=== PATIENT | female | born 1955 | race Caucasian/White ===

== ENCOUNTER 2023-06-20 10:21 | Inpatient (IN) | payer MEDICARE, OTHER, SELFPAY ==
[2023-06-20] VITALS (15 sets, daily range): BP systolic 108–160; BP diastolic 55–83; PULSE 78; BMI 44.5
[2023-06-20 06:19] LABS: % Basophils 0.5 % (0-2); % Eosinophils 0.4 % (0-6); % Immature Granulocytes 0.4 % (0-0.5); % Lymphocytes 5.5 % (20.5-51.1); % Monocytes 5.7 % (1.7-9.3); % Neutrophils 87.5 % (42.2-75.2); Absolute Basophils 0.1 10^3/uL (0-0.2); Absolute Eosinophils 0.1 10^3/uL (0-0.7); Absolute Immature Granulocytes 0.1 10^3/uL (0-0.05); Absolute Lymphocytes 0.9 10^3/uL (1.2-3.4); Absolute Monocytes 0.9 10^3/uL (0.1-0.6); Absolute Neutrophils 14.2 10^3/uL (1.4-6.5); Hematocrit 40.4 % (37.0-47.0); Hemoglobin 13.8 g/dL (12.0-16.0); Mean Corp Hgb Conc. 34.2 g/dL (33.0-37.0); Mean Corpuscular Hgb 30.2 pg (27.0-31.0); Mean Corpuscular Volume 88.4 fL (81.0-99.0); Mean Platelet Volume 9.6 fL (7.4-10.4); Nucleated Red Blood Cells % 0 %; Platelet Count 215 10^3/uL (130-400); Red Blood Cell Count 4.57 10^6/uL (4.20-5.40); Red Cell Dist. Width 13.5 % (11.5-14.5); White Blood Cell Count 16.2 10^3/uL (4.8-10.8)
[2023-06-20 06:38] LABS: ALT (SGPT) 21 U/L (0-35); AST (SGOT) 21 U/L (14-36); Albumin 4.3 g/dl (3.5-5.0); Alkaline Phosphatase 95 U/L (38-126); Blood Urea Nitrogen 21 mg/dl (7-17); Calcium 9.1 mg/dl (8.4-10.2); Carbon Dioxide 24 mmol/L (22-30); Chloride 109 mmol/L (98-107); Glucose 133 mg/dl (70-99); Lipase 92 U/L (23-300); Potassium 4.2 mmol/L (3.5-5.1); Sodium 141 mmol/L (135-145); Total Bilirubin 0.5 mg/dl (0.2-1.3); Total Protein 6.7 g/dl (6.3-8.2); eGFR > 60.00
--- NOTE | 2023-06-20 07:35 | ED.GENMED ---
History of Present Illness
General
Chief Complaint: Abdominal Pain
Time Seen by Provider: 06/20/23 07:29
Travel History
Have you had any contact with someone who has COVID-19?: No
Do you have any symptoms of coronavirus? Fever > 100 degrees, chills, cough, shortness of breath, sore throat, loss of taste or smell, muscle aches, or headache?: No
History of Present Illness
History of Present Illness:
68-year-old female presents to the emergency department for evaluation of right upper quadrant and right flank pain beginning abruptly last night and gradually worsening throughout the night. She has had gradually worsening chills as well as nausea
and vomiting. No history of abdominal surgeries. Notes that she ate kielbasa for dinner last night before symptoms began. Pain is currently rated 9 out of 10, pleuritic in nature, radiating to the right chest. No lower urinary tract voiding
symptoms or bowel movement changes
Past History
Past History
ED Past Medical History: Arrthythmia (Atrial fib, Ablation X3), CHF, COPD, GERD, Hypercholesterolemia, [place], Psychiatric (Anxiety) and Other (Sleep apnea, morbid obesity, hemochromatosis, Kidney stones)
ED Past Surgical History: Gynecological (D & C), Orthopedic and Other
Social History
Tobacco: Former smoker
Alcohol: None
Personal:
Living: with family
Employment: Not employed
Family History
Family History: CAD
Review of Systems
Review of Systems
Allergies reviewed?: Yes
All Other Systems: ROS reviewed and negative except as documented in HPI and ROS
Phy Exam
Physical Exam
Physical Exam:
GEN: Ill-appearing, pale, diaphoretic
Eyes: PERRLA, EOMs intact, no scleral icterus
HENT: NCAT, oral mucosa moist
Lungs: Tachypneic, clear lungs
Cardiac: RRR, no M/R/G, no peripheral edema. Radial pulses 2+ bilat
Abdomen: Distended, firm upper abdomen, markedly tender to the epigastrium and right upper quadrant
Neuro: AO x 3
MSK: No gross deformity or ecchymosis. No edema. No digital clubbing
Skin: No rashes, petechiae. Normal color, no pallor or jaundice.
Psych: Calm, cooperative, proper hygiene
Course
Orders/Labs/Results
Orders:
Orders
06/20/23 06:03
Complete Blood Count/With Diff Urgent
Comprehensive Metabolic Panel Urgent
Lipase Urgent
06/20/23 07:33
CT Abd/Pel (IV only)-DH only Urgent
Comment:
Reason For Exam: R flank/RUQ pain
HYDROmorphone [Dilaudid] 0.5 mg IV NOW STA
Ondansetron Injectable [Zofran] 4 mg IV NOW STA
06/20/23 08:17
0.9% Sodium Chloride 1000 ml [Nss] 1,000 ml IV BOLUS
06/20/23 08:18
Pantoprazole [Protonix IV] 40 mg IV NOW STA
06/20/23 08:25
Ketorolac [Toradol] 15 mg IV NOW STA
06/20/23 08:38
Lactic Acid Q4H
Comment: CANCEL 2nd LACTIC ACID IF 1st LACTIC ACID IS LESS THAN 2
Blood Culture Q30M
REBECA Source: Blood/Venous
Specimen Description:
Blood Culture Q30M
REBECA Source: Blood/Venous
Specimen Description:
06/20/23 08:50
Urinalysis Reflex To Culture Urgent
Date Specimen was Collected: 06/20/23
Time Specimen was Collected: 08:49
Urine Microscopic Reflex Cult Urgent
Urine Culture Urgent
REBECA Source: U
Specimen Description:
Date Specimen was Collected: 06/20/23
Time Specimen was Collected: 08:49
06/20/23 09:00
Flush (0.9% Sodium Chloride) [Flush (Nss)] See Dose Instructions IV PER PROTOCOL
06/20/23 09:02
CefTRIAXone [Rocephin] 1,000 mg IV NOW STA
06/20/23 09:06
Gentamicin Sulfate [Gentamicin] 200 mg 0.9% Sodium Chloride [Nss] 50 ml IV NOW
06/20/23 09:40
Sterile Water [Sterile Water For Injection] 10 ml .ROUTE .K-MED ONE
06/20/23 09:43
Admit/Transfer Patient As Directed
Co-Sign Provider:
Level of Care: Inpatient admission
Assign to:: Medical/Surgical
Physician / Group: Octavio
Diagnosis: Sepsis, nephrolithiasis
Reason for Hospitalization: IV antibiotics, urology consult
Expected length of stay greater than two midnights?: Yes
ELOS- Estimated Length of Stay in days: 3
I certify the patient meets the requirements for IP care: Yes
06/20/23 09:45
Code Status As Directed
Resuscitation Status: Full Code
06/20/23 Lunch
NPO
Allow oral meds: Yes
Allow clear liquids: Sips of Clears
06/20/23 12:14
0.9% Sodium Chloride 1000 ml [Nss] 1,000 ml IV 100 mls/hr
Acetaminophen [Tylenol] 650 mg PO Q6HPRN PRN
HYDROmorphone [Dilaudid] 0.5 mg IV Q4HPRN PRN
Ketorolac [Toradol] 15 mg IV Q6HPRN PRN
06/20/23 12:14
UROLOGY CONSULT Routine
Consulting Provider: Randy Spring
Was physician already notified: Yes
Activity As Directed
Activity Level: Ambulate
DX Deep Vein Thrombosis Video Routine
06/20/23 12:30
Lactic Acid Q4H
Comment: CANCEL 2nd LACTIC ACID IF 1st LACTIC ACID IS LESS THAN 2
06/20/23 14:00
Cefepime HCl [Maxipime] 2,000 mg IV Q12H
06/20/23 18:00
Enoxaparin Sodium [Lovenox] 40 mg SC QPM
06/20/23 22:00
Cpap [RESP] HS
Patient to use own unit?: No
Set Pressure (cm H2O): 10
06/21/23 06:00
Complete Blood Count/With Diff IN AM
Comprehensive Metabolic Panel IN AM
06/22/23 06:00
Complete Blood Count/With Diff IN AM
Comprehensive Metabolic Panel IN AM
Abnormal Lab Results
06/20/23 06/20/23
06:03 08:50
WBC 16.2 H 10^3/uL
(4.8-10.8)
Abs Immat Gran (auto) 0.1 H 10^3/uL
(0-0.05)
Absolute Neuts (auto) 14.2 H 10^3/uL
(1.4-6.5)
Absolute Lymphs (auto) 0.9 L 10^3/uL
(1.2-3.4)
Absolute Monos (auto) 0.9 H 10^3/uL
(0.1-0.6)
Neutrophils % 87.5 H %
(42.2-75.2)
Lymphocytes % 5.5 L %
(20.5-51.1)
Chloride 109 H mmol/L
(98-107)
BUN 21 H mg/dl
(7-17)
Glucose 133 H mg/dl
(70-99)
Ur Occult Blood Reflex 3+ A
(Negative)
Leukocyte Esterase Rfl Trace A
(Negative)
Urine RBC 30-40 A /HPF
(0-2)
Urine Bacteria (Reflex) Many A
(Negative)
03/23/24 06:03
06/20/23 06:03
Vital Signs
Initial and Last Documented VS:
Initial Vital Signs
Temp Pulse Resp BP Pulse Ox
97.6 F 66 24 159/83 93
06/20/23 05:52 06/20/23 05:52 06/20/23 05:52 06/20/23 05:52 06/20/23 05:52
Last Documented Vital Signs
Temp Pulse Resp BP Pulse Ox
100.6 F H 97 22 128/55 92
06/20/23 12:40 06/20/23 13:00 06/20/23 13:00 06/20/23 13:00 06/20/23 13:00
MDM/Problems Addressed
MDM/Problems Addressed:
68-year-old female presents with acute onset of right flank pain and vomiting. Initial diagnostic considerations for renal colic versus biliary colic given that the symptoms seem to be provoked by fatty meal. Patient is noted to be ill-appearing
and quite pale, urgent CT scan reveals obstructing ureterolithiasis. Clinical signs of sepsis are present with leukocytosis and tachypnea, or tachycardic response is likely blunted by verapamil use. Urology was consulted urgently and the patient
will be admitted to the hospital on IV antibiotics, taken to the operating room for urgent urologic intervention
*Critical Care Note
Total Time (30-74mins, 75-104mins- exclusive of procedures): 40 minutes
comment:
Critical care time: 40 minutes
Critical care time was exclusive of: Separately billable procedures, treating other patients, and teaching time
Critical care was necessary to treat or prevent imminent or life-threatening deterioration of the following conditions: Urosepsis
Critical care time spent personally by me on the following activities:
[x] Review of old charts
[x] Obtaining history from patient or surrogate
[x] Ordering and review of the laboratory studies
[x] Ordering and review of radiographic studies
[x] Ordering and performing treatments and interventions
[x] Patient patient's response to treatment
[x] Development of treatment plan with patient or surrogate
ED Attending Note
-
Portions of this chart may have been created with voice recognition software.� Occasional wrong word or��sound alike� substitutions may have occurred due to the inherent limitations of voice recognition software.
Discharge Plan
Departure
Patient Disposition: Admit
Date of Disposition: 06/20/23
Time of Disposition: 08:40
Presentation/result/management discussed w/ accepting MD/DO: Hospitalist
Discharge Problem:
Ureterolithiasis, Sepsis
Interventions
Interventions:
*Risk Screen - Suicide Last Done: 06/20/23 05:52
*General Assessment Last Done: 06/20/23 05:52
*Neglect/Abuse Screening Last Done: 06/20/23 05:52
*ED COVID-19 Vaccine History Last Done: 06/20/23 07:13
ZL-Bmzggv-Iqdjnsvbsn Assessment Last Done: 06/20/23 07:17
[2023-06-20] MEDS: ZOFRAN 4 MG IV (08:10)
[2023-06-20] MEDS: DILAUDID 0.5 MG IV (08:12)
[2023-06-20] MEDS: NSS 1000 IV ×3 (08:27→23:14)
[2023-06-20] MEDS: PROTONIX IV 40 MG IV (08:28)
[2023-06-20] MEDS: TORADOL 15 MG IV ×2 (08:51→20:04)
[2023-06-20 09:19] LABS: Lactic Acid 1.9 mmol/L (0.7-2.0)
[2023-06-20 09:34] LABS: Urine Albumin Negative (Neg - Trace); Urine Bilirubin Negative (Negative); Urine Character Clear (Clear); Urine Color Yellow; Urine Glucose Negative (Negative); Urine Ketone Negative (Negative); Urine Leukocyte Trace (Negative); Urine Nitrite Negative (Negative); Urine Occult Blood 3+ (Negative); Urine Urobilinogen Negative (Neg - 1+)
[2023-06-20] MEDS: ROCEPHIN 1000 MG IV (09:49)
[2023-06-20] MEDS: GENTAMICIN 55 MG IV (09:52)
--- NOTE | 2023-06-20 09:53 | HPS.HSE ---
Family Physician
-
Family Physician: Luly Floyd
Chief Complaint
-
Abdominal pain, nausea vomiting, chills
History of Present Illness
68-year-old female with history of nephrolithiasis here with acute onset of right sided abdominal pain and right flank pain last night. Associated chills, nausea and vomiting. CT abdomen pelvis showed obstructing right proximal ureteral stone with
severe hydronephrosis. We were asked to admit her to the hospital.
She has a history of nephrolithiasis and was admitted to the hospital twice before. Follows up with urology locally.
Has been off and on systemic steroids over the past 3 months for ongoing bronchitis and COPD exacerbation.
Reportedly had negative COVID test a week ago.
Medical History
Past Medical History
Past Medical History: Reports Other
Additional Past Medical History:
COPD
Atrial fibrillation
CHF
GERD
CAD
LILIA
Hemochromatosis
Nephrolithiasis
Past Surgical History: Reports Gynocological, Orthopedic and Other
Additional Past Surgical History:
Pacemaker
Social History
Tobacco: Former Smoker
Alcohol: None
Drug: None
Personal:
Living: With Family
Family History
Family History: Not pertinent
Allergies / Home Medications
Allergies reflects when Allergies were last updated in [facility]
Home Medications with original date entered in [facility]
Allergy/Medication List:
Allergies
Allergy/AdvReac Type Severity Reaction Status Date / Time
hydrocodone [From Vicodin] Allergy Itching Verified 08/29/22 07:05
oxycodone [From Percocet] Allergy Itching Verified 08/29/22 07:05
Home Medications
aspirin 81 mg tablet,delayed release 81 mg PO DAILY 12/11/09
lorazepam 1 mg tablet 1 mg PO TIDPRN PRN ANXIETY 04/12/15
verapamil 120 mg tablet,extended release 120 mg PO DAILY ##30 04/15/15
rosuvastatin 20 mg tablet 20 mg PO HS 04/23/18
ascorbic acid (vitamin C) 1,000 mg tablet (Vitamin C) 2,000 mg PO DAILY 09/27/18
flecainide 100 mg tablet 100 mg PO BID 09/27/18
lorazepam 2 mg tablet 3 mg PO HS 09/27/18
montelukast 10 mg tablet 10 mg PO DAILY 09/27/18
ropinirole 2 mg tablet 2 mg PO HS 09/27/18
cholecalciferol (vitamin D3) 50 mcg (2,000 unit) tablet 4,000 unit PO DAILY 11/23/19
furosemide 40 mg tablet 40 mg PO DAILY #90 tabs 02/11/21
allopurinol 100 mg tablet 100 mg PO DAILY 03/15/21
albuterol sulfate 90 mcg/actuation aerosol inhaler (Ventolin HFA) 1 inh inhalation PRN PRN sob 04/16/22
fluticasone furoate 100 mcg-vilanterol 25 mcg/dose inhalation powder (Breo Ellipta) 1 inh inhalation DAILY 04/16/22
acetaminophen 325 mg capsule (Tylenol) 650 mg PO Q6H PRN pain 05/05/22
inulin-sorbitol 2 gram chewable tablet 2 tab PO QPM 05/05/22
famotidine 20 mg tablet 20 mg PO HS #30 tabs 05/07/22
pantoprazole 40 mg tablet,delayed release 40 mg PO DAILY #30 tabs 05/07/22
albuterol sulfate 0.63 mg/3 mL solution for nebulization 0.63 mg inhalation PRN PRN SOB 08/22/22
hydrocodone 10 mg-acetaminophen 325 mg tablet 1 tab PO Q6H PRN pain 08/22/22
linaclotide 145 mcg capsule (Linzess) 145 mcg PO DAILY 08/22/22
Review of Systems
-
History Source: Patient
A 12 point ROS was completed and negative except as noted: Yes
Constitutional: Reports Chills
Abdomen/GI: Reports Abdominal Pain, Nausea and Vomiting
Physical Exam
Vital Signs
Vital Signs
Temp Pulse Resp BP Pulse Ox
97.6 F 66 24 159/76 90
06/20/23 05:52 06/20/23 05:52 06/20/23 05:52 06/20/23 09:00 06/20/23 09:00
Physical Exam
General: Well Developed, Well Nourished, No Apparent Distress and Comfortable
HEENT: NormoCephalic, Anicteric and Moist mucous membranes
Respiratory: Clear
Cardiac: S1/S2 and Regular Rhythm
GI: Soft, Non Tender and Non Distended
Genito-urinary: Deferred by me
Musculoskeletal: No Clubbing, No Cyanosis and No Edema
Skin: Warm and Dry
Neuro: AO x 3
Hematologic/Lymphatic: No Lymphadenopathy
Psych: Calm
Laboratory Results
-
06/20/23 06:03
06/20/23 06:03
Laboratory Results
Lactic Acid 1.9 mmol/L (0.7-2.0) 06/20/23 08:38
Total Bilirubin 0.5 mg/dl (0.2-1.3) 06/20/23 06:03
AST 21 U/L (14-36) 06/20/23 06:03
ALT 21 U/L (0-35) 06/20/23 06:03
Alkaline Phosphatase 95 U/L (38-126) 06/20/23 06:03
Lipase 92 U/L (23-300) 06/20/23 06:03
Impression/Plan
-
Sepsis -due to obstructive uropathy due to 10 mm proximal right ureteral stone. Severe hydronephrosis noted on CT scan. Renal function adequate. [facility] Consult urology. Keep NPO. Continue IV fluids, IV antibiotics. Check cultures.
Hemodynamically stable. Lactic acid normal.
Recurrent nephrolithiasis
Paroxysmal atrial fibrillation -treated with ablation x 3 in the past. Not on anticoagulation. On low-dose aspirin. Reportedly has a history of stroke. Follows up with Dr. Laguerre of cardiology. Unclear why she is not on oral anticoagulation.
COPD without exacerbation -recently completed a course of steroids. Not on home oxygen.
Permanent pacemaker
LILIA -on CPAP at bedtime. Resume in the hospital.
Chronic heart failure preserved EF -stable.
CAD/[place] history
Hemochromatosis
GERD
Morbid obesity due to excess calories
Full code
[2023-06-20 09:58] LABS: Urine Mucus Few
[2023-06-20 09:59] LABS: Urine Bacteria Many (Negative); Urine Red Blood Cell 30-40 /HPF (0-2)
--- NOTE | 2023-06-20 10:46 | CONS.URO ---
Consultation
-
Performing Provider: Peffer
Reason for Consultation: Kidney stone
Medical History
History of Present Illness
68F known to our practice with prior history of stones and stone procedures
She began having severe R flank pain with nausea, vomiting chills last night
In ER, CT showed a 10mm R proximal ureteral stone
She was admitted for leukocytosis and possible developing sepsis
UA showed many bacteria
No fevers/chills, normal lactic acid, vitals stable
Past Medical History
Past Medical History: Other (COPD Atrial fibrillation CHF GERD CAD LILIA Hemochromatosis)
Past Surgical History: Urological and Other
Social History
Tobacco: Former Smoker
Alcohol: None
Drug: None
Family History
Family History: Reviewed & Not Pertinent
Allergies/Home Medications
Allergies
Allergy/AdvReac Type Severity Reaction Status Date / Time
hydrocodone [From Vicodin] Allergy Itching Verified 08/29/22 07:05
oxycodone [From Percocet] Allergy Itching Verified 08/29/22 07:05
Home Medications
Medication Instructions Recorded Confirmed Type
aspirin 81 mg tablet,delayed 81 mg PO DAILY 12/11/09 06/20/23 History
release
lorazepam 1 mg tablet 1 mg PO TIDPRN PRN ANXIETY 04/12/15 06/20/23 History
verapamil 120 mg tablet,extended 120 mg PO DAILY ##30 04/15/15 06/20/23 Rx
release
rosuvastatin 20 mg tablet 20 mg PO HS 04/23/18 06/20/23 History
ascorbic acid (vitamin C) 1,000 mg 2,000 mg PO DAILY 09/27/18 06/20/23 History
tablet (Vitamin C)
flecainide 100 mg tablet 100 mg PO BID 09/27/18 06/20/23 History
lorazepam 2 mg tablet 3 mg PO HS 09/27/18 06/20/23 History
montelukast 10 mg tablet 10 mg PO DAILY 09/27/18 06/20/23 History
ropinirole 2 mg tablet 2 mg PO DAILY 09/27/18 06/20/23 History
cholecalciferol (vitamin D3) 50 4,000 unit PO DAILY 11/23/19 06/20/23 History
mcg (2,000 unit) tablet
furosemide 40 mg tablet 40 mg PO DAILY #90 tabs 02/11/21 06/20/23 Rx
allopurinol 100 mg tablet 100 mg PO DAILY 03/15/21 06/20/23 History
albuterol sulfate 90 mcg/actuation 1 inh inhalation PRN PRN sob 04/16/22 06/20/23 History
aerosol inhaler (Ventolin HFA)
fluticasone furoate 100 1 inh inhalation PRN PRN SOB 04/16/22 08/29/22 History
mcg-vilanterol 25 mcg/dose
inhalation powder (Breo Ellipta)
acetaminophen 325 mg capsule 650 mg PO Q6H PRN pain 05/05/22 06/20/23 History
(Tylenol)
famotidine 20 mg tablet 20 mg PO HS #30 tabs 05/07/22 06/20/23 Rx
pantoprazole 40 mg tablet,delayed 40 mg PO DAILY #30 tabs 05/07/22 06/20/23 Rx
release
albuterol sulfate 0.63 mg/3 mL 0.63 mg inhalation PRN PRN SOB 08/22/22 06/20/23 History
solution for nebulization
hydrocodone 10 mg-acetaminophen 1 tab PO Q6H PRN pain 08/22/22 08/29/22 History
325 mg tablet
Physical Exam
Vital Signs
Vital Signs
Temp Pulse Resp BP Pulse Ox
97.6 F 66 24 138/81 90
06/20/23 05:52 06/20/23 05:52 06/20/23 05:52 06/20/23 10:00 06/20/23 10:00
Lab / Testing Results
Laboratory Results
06/20/23 06:03
06/20/23 06:03
Physical Exam
General: Well Developed, Well Nourished and Pain
Respiratory: Accessory Resp Muscle Use
GI: Soft and Non Distended
Genito-urinary: Costovertebral Angle Tend
Neuro: AO x 3
Psych: Calm and Intact Judgement
Assessment / Plan
-
68F with 10mm obstructing R proximal ureteral stone
Leukocytosis and positive UA concerning for developing infection
- OR this AM for cystoscopy, R ureteral stent placement
- Continue abx pending cultures
- Outpatient procedure for kidney stone removal after clearing infection
[2023-06-20] MEDS: STERILE WATER FOR INJECTION 10 ML IV (14:54)
[2023-06-20] MEDS: MAXIPIME 2000 MG IV (14:54)
[2023-06-20] MEDS: LOVENOX 40 MG SC (18:32)
[2023-06-20] MEDS: COLACE 100 MG PO (22:23)
[2023-06-20] MEDS: TAMBOCOR 100 MG PO (22:23)
--- NOTE | 2023-06-20 22:35 | PTCARENOTE ---
prelim blood cultures + for gram neg baccilli. sterile processing technologist notified. no new abx's. will monitor.
[2023-06-21 00:03] VITALS: BP 116/61
[2023-06-21] MEDS: STERILE WATER FOR INJECTION 10 ML IV ×2 (03:19→13:06)
[2023-06-21] MEDS: MAXIPIME 2000 MG IV ×2 (03:19→13:06)
[2023-06-21] MEDS: TORADOL 15 MG IV ×2 (05:24→20:22)
[2023-06-21 06:41] LABS: % Basophils 0.1 % (0-2); % Immature Granulocytes 0.5 % (0-0.5); % Lymphocytes 6.2 % (20.5-51.1); % Monocytes 5.4 % (1.7-9.3); % Neutrophils 87.8 % (42.2-75.2); Absolute Immature Granulocytes 0.1 10^3/uL (0-0.05); Absolute Monocytes 0.8 10^3/uL (0.1-0.6); Absolute Neutrophils 13.5 10^3/uL (1.4-6.5); Hematocrit 36.8 % (37.0-47.0); Hemoglobin 12.1 g/dL (12.0-16.0); Mean Corp Hgb Conc. 32.9 g/dL (33.0-37.0); Mean Corpuscular Hgb 29.8 pg (27.0-31.0); Mean Corpuscular Volume 90.6 fL (81.0-99.0); Mean Platelet Volume 10.4 fL (7.4-10.4); Nucleated Red Blood Cells % 0 %; Platelet Count 197 10^3/uL (130-400); Red Blood Cell Count 4.06 10^6/uL (4.20-5.40); Red Cell Dist. Width 13.7 % (11.5-14.5); White Blood Cell Count 15.4 10^3/uL (4.8-10.8)
[2023-06-21 07:00] LABS: ALT (SGPT) 20 U/L (0-35); AST (SGOT) 20 U/L (14-36); Albumin 3.8 g/dl (3.5-5.0); Alkaline Phosphatase 85 U/L (38-126); Blood Urea Nitrogen 19 mg/dl (7-17); Calcium 8.6 mg/dl (8.4-10.2); Carbon Dioxide 24 mmol/L (22-30); Chloride 104 mmol/L (98-107); Estimated Creatinine Clearance 109 ml/min; Glucose 119 mg/dl (70-99); Potassium 3.6 mmol/L (3.5-5.1); Sodium 139 mmol/L (135-145); Total Bilirubin 0.6 mg/dl (0.2-1.3); Total Protein 6.1 g/dl (6.3-8.2); eGFR > 60.00
[2023-06-21 08:04] VITALS: BP 122/54
[2023-06-21] MEDS: TAMBOCOR 100 MG PO ×2 (08:25→20:22)
[2023-06-21] MEDS: COLACE 100 MG PO ×2 (08:25→20:24)
[2023-06-21] MEDS: DILAUDID 0.5 MG IV (08:29)
--- NOTE | 2023-06-21 10:26 | CM ---
Reviewed the chart notes and spoke with the patient at the bedside. The patient resides with her spouse in a one story home with three steps to enter. The patient has a CPAP machine, nebulizer, shower chair, and shower rails. The patient has had
[facility] in the past, but no SNF/rehab. The patient confirmed her pharmacy of choice is the [facility]. continues to be available to patient/family and is monitoring medical plan for needs at discharge.
Plan: Discharge to home when medically stable. Anticipate no additional needs at this time.
[2023-06-21 11:17] VITALS: BP 128/71
[2023-06-21] MEDS: LASIX 40 MG PO (11:37)
[2023-06-21] MEDS: ZYLOPRIM 100 MG PO (11:38)
[2023-06-21] MEDS: PROTONIX 40 MG PO (11:38)
--- NOTE | 2023-06-21 11:54 | W.PN.URO.CBU ---
Today's Communication / Plan
-
Continue antibiotics
Assessment / Plan
-
68F with 10mm obstructing R proximal ureteral stone and sepsis
s/p cystoscopy, ureteral stent 06/19
- Continue abx pending cultures
- Blood and urine cultures preliminary positive
- Outpatient procedure for kidney stone removal after clearing infection
Diagnosis
-
Date of Service: June 21, 2023
-
Patient Diagnosis:
Sepsis
R ureteral stone
Post Op s/p stent placement 06/19
Subjective
-
feeling much better today
tolerating stent well
Objective
-
Vital Signs
Temp Pulse Resp BP Pulse Ox
97.9 F 63 18 128/71 95
06/21/23 11:17 06/21/23 11:37 06/21/23 11:17 06/21/23 11:37 06/21/23 11:17
Intake and Output
06/20/23 06/21/23 06/22/23
06:59 06:59 06:59
Intake Total 2740 / 2740
Balance 2740 / 2740
Intake:
Oral fluids 1440 / 1440
IV fluids (Total) 1300 / 1300
normosol 100 / 100
Other:
Number of approximated MODERATE 1
amounts of urine
Laboratory Results
06/21/23 05:25
06/21/23 05:25
Physical Exam
-
General - well developed, well nourished, no acute distress
Chest - clear
Abdomen - soft, non-tender
Skin - warm & dry with no rash
Neuro - AOx3, no motor deficits
--- NOTE | 2023-06-21 12:04 | W.PN.HOSP.TC ---
Today's Communication/Plan
-
Continue IV antibiotics
ID consult
Assessment / Plan
Assessment / Plan
Gen-AAOx3, NAD, morbid obesity
HEENT-NC, AT, anicteric, clear oral mm
Neck-supple
CV-reg, no M, +S1/S2
Lungs-clear B/L
Abd-soft, NT, ND
Ext-no edema
Musculoskeletal-no cyanosis, clubbing
Skin-warm and dry
Neuro-grossly non-focal
Psych-calm, cooperative
Gram Negative Sepsis -due to obstructive uropathy due to 10 mm proximal right ureteral stone.� Severe hydronephrosis noted on CT scan.� Renal function adequate.� Stable after cysto and ureteral stenting 06/19.� Continue IV fluids, IV antibiotics.�
Blood and urine cultures positive. Consult ID. Hemodynamically stable.
Recurrent nephrolithiasis
Paroxysmal atrial fibrillation -treated with ablation x 3 in the past.� Not on anticoagulation.� On low-dose aspirin.� Reportedly has a history of stroke.� Follows up with Dr. Laguerre of cardiology.� Unclear why she is not on oral anticoagulation.
COPD without exacerbation -recently completed a course of steroids.� Not on home oxygen.
Permanent pacemaker
LILIA -on CPAP at bedtime.� Resume in the hospital.
Chronic heart failure preserved EF -stable.
CAD/[place] history
Hemochromatosis
GERD
Morbid obesity due to excess calories
Full code
Anticipated Discharge: > 48 hours
Subjective/Interval History
-
Date of Service: June 21, 2023
Patient seen/examined, mild right flank pain.
Objective Data
-
Labs:
Laboratory Results
06/21/23
05:25
WBC 15.4 H
Hgb 12.1
Hct 36.8 L
Plt Count 197
Sodium 139
Potassium 3.6
Chloride 104
Carbon Dioxide 24
BUN 19 H
Creatinine 0.5 L
Glucose 119 H
Calcium 8.6
Total Bilirubin 0.6
AST 20
ALT 20
Alkaline Phosphatase 85
Vital Signs:
Vital Signs
Temp Pulse Resp BP Pulse Ox
97.9 F 63 18 128/71 95
06/21/23 11:17 06/21/23 11:37 06/21/23 11:17 06/21/23 11:37 06/21/23 11:17
I&O
06/20/23 06/21/23 06/22/23
06:59 06:59 06:59
Intake Total 2740 / 2740
Balance 2740 / 2740
Review of Systems
-
History Source: Patient
All other systems: Reviewed and negative
[2023-06-21] MEDS: MIRALAX 17 GRAMS PO (13:05)
[2023-06-21 15:41] VITALS: BP 131/67
--- NOTE | 2023-06-21 16:46 | CON.ID ---
Consultation
-
Date/Time Consultation Requested: 06/21/23 11:19
Date/Time Consultation Performed: 06/21/23 16:46
Requesting Provider: Dr Cunningham
Performing Provider: Dr Trent
Reason for Consultation: e coli bacteremia
Chief Complaint / Past History
Chief Complaint
Abdominal pain, nausea vomiting, chills
History of Present Illness
Ms Mariee is a 68 year old female with history of COPD/ILD, CHF, hemochromatosis, class III obesity, who presented here 06/19 for acute onset of right abd/flank pain, chills, nausea vomiting.
Also complaining of 3 months of peristent cough, malaise, without significant sputum production. Reports at least 3 courses of steroids for presumed copd exacerbation however still with symptoms
Since arrival here she has been afebrile, bp stable, wbc 16 on arrival, hgb 12, plt 197, cr 0.5, blood and urine cultures with GNR, one is IDd as E coli sensi are pending, CT a/p 10 mm calcification in the proximal right ureter with moderate to
severe right-sided hydronephrosis and perinephric stranding, had stent placement currently on cefepime, ID is consulted for assistance with management.
Past History
Additional Past Medical History:
COPD
Atrial fibrillation
CHF
GERD
CAD
LILIA
Hemochromatosis
Nephrolithiasis
Additional Past Surgical History:
Gynocological, Orthopedic and Other
Allergy History:
hydrocodone [From Vicodin] Allergy (Verified 08/29/22 07:05)
Itching
oxycodone [From Percocet] Allergy (Verified 08/29/22 07:05)
Itching
Medications Reviewed: Yes
Social History
Tobacco: Former Smoker
Alcohol: None
Drug: None
Family History
Family History: Not Pertinent
Review of Systems
Review of Systems
General: Negative Fever or Chills
All systems: All other systems were reviewed and were negative
Vital Signs
Temp Pulse Resp BP Pulse Ox
98.2 F 62 18 131/67 96
06/21/23 15:41 06/21/23 15:41 06/21/23 15:41 06/21/23 15:41 06/21/23 15:41
Physical Exam
Physical Exam
Constitutional: No Acute Distress
Cardiovascular: Regular Rate and S1/S2; Negative Murmur or Rub
Pulmonary: Clear, Symmetric and Non Labored; Negative Wheezes, Rales or Rhonchi
Gastrointestinal: Soft, Non Tender, Non Distended and Normal Bowel Sounds
Genito-Urinary: Suprapubic Tenderness; Negative CVA Tenderness
Skin: Warm and Dry; Negative Rash or Jaundice
Lab / Diagnostic Study Results
06/21/23 05:25
06/21/23 05:25
Abs Immat Gran (auto) 0.1 10^3/uL (0-0.05) H 06/21/23 05:25
Absolute Neuts (auto) 13.5 10^3/uL (1.4-6.5) H 06/21/23 05:25
Absolute Lymphs (auto) 1.0 10^3/uL (1.2-3.4) L 06/21/23 05:25
Absolute Monos (auto) 0.8 10^3/uL (0.1-0.6) H 06/21/23 05:25
Absolute Basos (auto) 0.0 10^3/uL (0-0.2) 06/21/23 05:25
Immature Gran % 0.5 % (0-0.5) 06/21/23 05:25
Neutrophils % 87.8 % (42.2-75.2) H 06/21/23 05:25
Lymphocytes % 6.2 % (20.5-51.1) L 06/21/23 05:25
Monocytes % 5.4 % (1.7-9.3) 03/24/24 05:25
Eosinophils % 0.0 % (0-6) 06/21/23 05:25
Basophils % 0.1 % (0-2) 06/21/23 05:25
Lactic Acid Cancelled 06/20/23 12:30
Ur Squamous Epith Cells 6-10 /LPF (Few) 06/20/23 08:50
Microbiology Results
Micro:
06/20/23 08:38 Blood Culture - Preliminary
Blood/Venous Escherichia coli
Gram Stain - Preliminary
06/20/23 08:38 Blood Culture - Preliminary
Blood/Venous Positive culture in progress
Gram Stain - Preliminary
06/20/23 12:29 Urine Culture - Preliminary
Urine Gram negative bacilli
06/20/23 08:50 Urine Culture - Preliminary
Urine Gram negative bacilli
Assessment / Plan
UTI due to E coli
E coli Bacteremia
Obstructing renal stone
- follow for sensitivities
- s/p stent placement
- continue cefepime
- check QTc
History of COPD, ILD
- persistent URI symptoms
- check CXR - 2 views
- has outpatient follow up with pulmonary
follow clinically
[2023-06-21] MEDS: LOVENOX 40 MG SC (17:04)
[2023-06-21 19:00] VITALS: BP 139/64
[2023-06-21] MEDS: PEPCID 20 MG PO (22:41)
[2023-06-21] MEDS: ATIVAN 3 MG PO (22:42)
[2023-06-21] MEDS: CRESTOR 20 MG PO (22:42)
[2023-06-21] MEDS: TYLENOL 650 MG PO (22:45)
[2023-06-21 23:00] VITALS: BP 148/68
[2023-06-22] MEDS: STERILE WATER FOR INJECTION 10 ML IV (03:01)
[2023-06-22] MEDS: MAXIPIME 2000 MG IV (03:01)
[2023-06-22] MEDS: TORADOL 15 MG IV (03:11)
[2023-06-22 05:17] LABS: % Basophils 0.2 % (0-2); % Eosinophils 0.2 % (0-6); % Immature Granulocytes 0.3 % (0-0.5); % Lymphocytes 11.2 % (20.5-51.1); % Monocytes 8.4 % (1.7-9.3); % Neutrophils 79.7 % (42.2-75.2); Absolute Immature Granulocytes 0.1 10^3/uL (0-0.05); Absolute Lymphocytes 1.6 10^3/uL (1.2-3.4); Absolute Monocytes 1.2 10^3/uL (0.1-0.6); Absolute Neutrophils 11.5 10^3/uL (1.4-6.5); Hematocrit 35.9 % (37.0-47.0); Hemoglobin 12.1 g/dL (12.0-16.0); Mean Corp Hgb Conc. 33.7 g/dL (33.0-37.0); Mean Corpuscular Hgb 30.3 pg (27.0-31.0); Mean Corpuscular Volume 89.8 fL (81.0-99.0); Mean Platelet Volume 10.2 fL (7.4-10.4); Nucleated Red Blood Cells % 0 %; Platelet Count 209 10^3/uL (130-400); Red Cell Dist. Width 13.8 % (11.5-14.5); White Blood Cell Count 14.5 10^3/uL (4.8-10.8)
[2023-06-22 05:45] VITALS: BMI 43.1
[2023-06-22 05:49] LABS: ALT (SGPT) 22 U/L (0-35); AST (SGOT) 25 U/L (14-36); Albumin 3.6 g/dl (3.5-5.0); Alkaline Phosphatase 63 U/L (38-126); Blood Urea Nitrogen 25 mg/dl (7-17); Calcium 9.2 mg/dl (8.4-10.2); Carbon Dioxide 25 mmol/L (22-30); Chloride 102 mmol/L (98-107); Estimated Creatinine Clearance 107 ml/min; Glucose 106 mg/dl (70-99); Potassium 3.7 mmol/L (3.5-5.1); Sodium 137 mmol/L (135-145); Total Bilirubin 0.7 mg/dl (0.2-1.3); Total Protein 5.9 g/dl (6.3-8.2); eGFR > 60.00
[2023-06-22 08:11] VITALS: BMI 43.1
[2023-06-22 08:31] VITALS: BP 108/60
[2023-06-22] MEDS: CALAN EXTENDED RELEASE 120 MG PO (08:38)
[2023-06-22] MEDS: COLACE 100 MG PO ×2 (08:39→21:24)
[2023-06-22] MEDS: TYLENOL 650 MG PO ×2 (08:39→21:24)
[2023-06-22] MEDS: SINGULAIR 10 MG PO (08:39)
[2023-06-22] MEDS: ZYLOPRIM 100 MG PO (08:40)
[2023-06-22] MEDS: ASPIR LOW (ENTERIC COATED) 81 MG PO (08:40)
[2023-06-22] MEDS: LASIX 40 MG PO (08:40)
[2023-06-22] MEDS: TAMBOCOR 100 MG PO ×2 (08:40→21:25)
[2023-06-22] MEDS: PROTONIX 40 MG PO (08:40)
[2023-06-22] MEDS: DILAUDID 0.5 MG IV ×2 (08:41→23:10)
[2023-06-22] MEDS: MIRALAX 17 GRAMS PO (08:41)
--- NOTE | 2023-06-22 09:13 | W.PN.URO.CBU ---
Today's Communication / Plan
-
Continue antibiotic
Assessment / Plan
-
68F with 10mm obstructing R proximal ureteral stone and sepsis
s/p cystoscopy, ureteral stent 06/19
- Continue abx pending cultures
- Blood and urine cultures preliminary positive, Gram neg
- Outpatient procedure for kidney stone removal after clearing infection
Diagnosis
-
Date of Service: June 22, 2023
-
Patient Diagnosis:
Sepsis
R ureteral stone
Post Op s/p stent placement 06/19
Subjective
-
No events overnight
tolerating stent
Objective
-
Vital Signs
Temp Pulse Resp BP Pulse Ox
98.0 F 65 19 108/60 94
06/22/23 08:31 06/22/23 08:31 06/22/23 08:31 06/22/23 08:31 06/22/23 08:31
Intake and Output
06/21/23 06/22/23 06/23/23
06:59 06:59 06:59
Intake Total 2740 / 2740 1560 / 1560
Balance 2740 / 2740 1560 / 1560
Intake:
Oral fluids 1440 / 1440 1560 / 1560
IV fluids (Total) 1300 / 1300
normosol 100 / 100
Other:
Number of approximated SMALL 2
amounts of urine
Number of approximated MODERATE 1 3
amounts of urine
Laboratory Results
06/22/23 04:51
06/22/23 04:51
Physical Exam
-
General - well developed, well nourished, no acute distress
Chest - clear
Abdomen - soft, non-tender
Skin - warm & dry with no rash
Neuro - AOx3, no motor deficits
--- NOTE | 2023-06-22 12:00 | W.PN.HOSP.TC ---
Today's Communication/Plan
-
Monitor vital signs and see plan
Follow urine and blood culture
Continue with antibiotics
PT/OT
Laxatives
Assessment / Plan
Assessment / Plan
Gen-AAOx3, NAD, morbid obesity
HEENT-NC, AT, anicteric, clear oral mm
Neck-supple
CV-reg, no M, +S1/S2
Lungs-clear B/L
Abd-soft, NT, ND
Ext-no edema
Neuro-grossly non-focal
Psych-calm, cooperative
Sepsis secondary to E. coli bacteremia-due to obstructive uropathy due to 10 mm proximal right ureteral stone.� Severe hydronephrosis noted on CT scan.� Renal function adequate.� Stable after cysto and ureteral stenting 06/19.� Continue IV fluids, IV
antibiotics.� Blood and urine cultures positive. ID following; cw abx per ID
Constipation
Laxatives
Recurrent nephrolithiasis
Paroxysmal atrial fibrillation -treated with ablation x 3 in the past.� Not on anticoagulation.� On low-dose aspirin.� Reportedly has a history of stroke.� Follows up with Dr. Laguerre of cardiology.� Unclear why she is not on oral anticoagulation.
COPD without exacerbation -recently completed a course of steroids.� Not on home oxygen.
Permanent pacemaker
LILIA -on CPAP at bedtime.� Resume in the hospital.
Chronic heart failure preserved EF -stable.
CAD/[place] history
Hemochromatosis
GERD
Morbid obesity due to excess calories
Full code
Anticipated Discharge: 24 - 48 hours
Subjective/Interval History
-
Date of Service: June 22, 2023
has some discomfort
Objective Data
-
Labs:
Laboratory Results
06/22/23
04:51
WBC 14.5 H
Hgb 12.1
Hct 35.9 L
Plt Count 209
Sodium 137
Potassium 3.7
Chloride 102
Carbon Dioxide 25
BUN 25 H
Creatinine 0.5 L
Glucose 106 H
Calcium 9.2
Total Bilirubin 0.7
AST 25
ALT 22
Alkaline Phosphatase 63
Vital Signs:
Vital Signs
Temp Pulse Resp BP Pulse Ox
98.0 F 65 19 108/60 94
06/22/23 08:31 06/22/23 08:31 06/22/23 08:31 06/22/23 08:31 06/22/23 08:31
I&O
06/21/23 06/22/23 06/23/23
06:59 06:59 06:59
Intake Total 2740 / 2740 1560 / 1560
Balance 2740 / 2740 1560 / 1560
--- NOTE | 2023-06-22 13:40 | W.PN.ID1 ---
Date of Service
Date of Service: June 22, 2023
Today's Communication
switch to cipro
14 day course
ekg in the am
Assessment / Plan
UTI due to E coli
E coli Bacteremia
Obstructing renal stone
- s/p stent placement
- start ciprofloxacin, stop cefepime - 14 day total course
- recheck QTc in the AM
- follow up with urology
History of COPD, ILD
- CXR no acute illness
- already on treatment for GERD
- has outpatient follow up with pulmonary
Chief Complaint
-: UTI
Subjective / Review of Systems
afebrile
bp stable
declining leukocytosis
cr stable
cultures with E coli - sensitive
Vital Signs / Physical Exam
Vital Signs
Vital Signs
Temp Pulse Resp BP Pulse Ox
98.0 F 65 19 108/60 94
06/22/23 08:31 06/22/23 08:31 06/22/23 08:31 06/22/23 08:31 06/22/23 08:31
Physical Exam
Constitutional: No Acute Distress
Cardiovascular: Regular Rate and S1/S2; Negative Murmur or Rub
Pulmonary: Clear and Symmetric; Negative Wheezes or Rales
Gastrointestinal: Soft, Non Tender, Non Distended and Normal Bowel Sounds
Skin: Warm and Dry; Negative Rash or Jaundice
Objective Data
Lab Data
Lab Results
06/22/23 04:51
06/22/23 04:51
Estimated Creat Clear 107 ml/min 06/22/23 04:51
Lactic Acid Cancelled 06/20/23 12:30
Total Bilirubin 0.7 mg/dl (0.2-1.3) 06/22/23 04:51
AST 25 U/L (14-36) 06/22/23 04:51
ALT 22 U/L (0-35) 06/22/23 04:51
Alkaline Phosphatase 63 U/L (38-126) 06/22/23 04:51
Most recent labs reviewed
Organism 1 Escherichia coli
1. Escherichia coli
M.I.C. RX
--------- ---
Amoxicillin/Potas. Clavulanate <=8/4 S
Ampicillin <=8 S
Ampicillin/Sulbactam <=8/4 S
Cefazolin <=2 S
Ertapenem <=0.5 S
Ciprofloxacin <=0.25 S
Gentamicin <=4 S
Levofloxacin <=0.5 S
Meropenem <=1 S
Nitrofurantoin-Urine Only <=32 S
Piperacillin/Tazobactam <=16 S
Tobramycin <=4 S
Trimethoprim/Sulfamethoxazole <=2/38 S
Micro Results:
06/22/23 09:17 Blood Culture - Pending
Blood/Venous
06/20/23 08:50 Urine Culture - Final
Urine Escherichia coli
06/20/23 12:29 Urine Culture - Final
Urine Escherichia coli
06/20/23 08:38 Blood Culture - Preliminary
Blood/Venous Escherichia coli
Gram Stain - Preliminary
06/20/23 08:38 Blood Culture - Preliminary
Blood/Venous Escherichia coli
Gram Stain - Final
06/22/23 08:51 Blood Culture - Pending
Blood/Venous
[2023-06-22 14:42] VITALS: BP 143/75
[2023-06-22] MEDS: CIPRO 500 MG PO ×2 (14:50→21:24)
--- NOTE | 2023-06-22 15:05 | CM ---
CM following re: discharge planning.
Reviewed pt's chart.
Pt is s/p cystoscopy, ureteral stent 06/19.
Patient resides with her spouse in a one story home with three steps to enter. The patient has a CPAP machine, nebulizer, shower chair, and shower rails.
PT and OT evaluations noted - pt has no skilled PT/OT needs.
D/C plan: home with no needs. Family to transport.
CM will follow with discharge plan updates as needed.
[2023-06-22 15:20] VITALS: BP 125/62
[2023-06-22] MEDS: LOVENOX 40 MG SC (17:37)
[2023-06-22] MEDS: PEPCID 20 MG PO (21:25)
[2023-06-22] MEDS: CRESTOR 20 MG PO (21:26)
[2023-06-22] MEDS: REQUIP 2 MG PO (21:26)
[2023-06-22] MEDS: ATIVAN PO (21:27)
[2023-06-22 23:10] VITALS: BP 121/57
[2023-06-22 23:20] VITALS: PULSE 84
[2023-06-23] MEDS: ATIVAN 1 MG PO (03:31)
[2023-06-23 03:39] VITALS: PULSE 80
[2023-06-23 06:00] VITALS: BMI 43.4
[2023-06-23 06:02] LABS: % Basophils 0.6 % (0-2); % Immature Granulocytes 0.5 % (0-0.5); % Lymphocytes 22.3 % (20.5-51.1); % Monocytes 8.4 % (1.7-9.3); % Neutrophils 66.2 % (42.2-75.2); Absolute Basophils 0.1 10^3/uL (0-0.2); Absolute Eosinophils 0.2 10^3/uL (0-0.7); Absolute Immature Granulocytes 0.1 10^3/uL (0-0.05); Absolute Lymphocytes 2.1 10^3/uL (1.2-3.4); Absolute Monocytes 0.8 10^3/uL (0.1-0.6); Absolute Neutrophils 6.2 10^3/uL (1.4-6.5); Hematocrit 36.6 % (37.0-47.0); Hemoglobin 12.1 g/dL (12.0-16.0); Mean Corp Hgb Conc. 33.1 g/dL (33.0-37.0); Mean Corpuscular Hgb 29.8 pg (27.0-31.0); Mean Corpuscular Volume 90.1 fL (81.0-99.0); Mean Platelet Volume 10.2 fL (7.4-10.4); Nucleated Red Blood Cells % 0 %; Platelet Count 223 10^3/uL (130-400); Red Blood Cell Count 4.06 10^6/uL (4.20-5.40); White Blood Cell Count 9.4 10^3/uL (4.8-10.8)
[2023-06-23 06:32] LABS: Blood Urea Nitrogen 24 mg/dl (7-17); Calcium 8.8 mg/dl (8.4-10.2); Carbon Dioxide 27 mmol/L (22-30); Chloride 105 mmol/L (98-107); Estimated Creatinine Clearance 108 ml/min; Glucose 82 mg/dl (70-99); Potassium 3.7 mmol/L (3.5-5.1); Sodium 136 mmol/L (135-145); eGFR > 60.00
[2023-06-23 07:00] VITALS: BP 143/75
[2023-06-23 08:00] VITALS: BMI 43.4
[2023-06-23] MEDS: DILAUDID 0.5 MG IV (08:11)
[2023-06-23] MEDS: TAMBOCOR 100 MG PO (08:14)
[2023-06-23] MEDS: SINGULAIR 10 MG PO (08:14)
[2023-06-23] MEDS: CIPRO 500 MG PO (08:14)
[2023-06-23] MEDS: CALAN EXTENDED RELEASE 120 MG PO (08:14)
[2023-06-23] MEDS: ASPIR LOW (ENTERIC COATED) 81 MG PO (08:14)
[2023-06-23] MEDS: COLACE 100 MG PO (08:14)
[2023-06-23] MEDS: PROTONIX 40 MG PO (08:14)
[2023-06-23] MEDS: MIRALAX 17 GRAMS PO (08:15)
[2023-06-23] MEDS: LASIX 40 MG PO (08:15)
[2023-06-23] MEDS: ZYLOPRIM 100 MG PO (08:30)
[2023-06-23] MEDS: TORADOL 15 MG IV (09:27)
[2023-06-23 11:00] VITALS: BP 132/77
--- NOTE | 2023-06-23 11:20 | W.PN.HOSP.TC ---
Addendum entered and electronically signed by Papo Kirkland MD 06/23/23 16:14:
Spoke with infectious disease and will discharge patient home with p.o. antibiotics
Time of discharge 38 minutes
Original Note:
Today's Communication/Plan
-
Monitor vital signs and see plan
Continue with antibiotics
Follow cultures from 06/21
Possible DC in next 24 hours
monitor pain
Assessment / Plan
Assessment / Plan
Gen-AAOx3, NAD, morbid obesity
HEENT-NC, AT, anicteric, clear oral mm
Neck-supple
CV-reg, no M, +S1/S2
Lungs-clear B/L
Abd-soft, NT, ND
Ext-no edema
Neuro-grossly non-focal
Psych-calm, cooperative
Sepsis secondary to E. coli bacteremia-due to obstructive uropathy due to 10 mm proximal right ureteral stone.� Severe hydronephrosis noted on CT scan.� Renal function adequate.� Stable after cysto and ureteral stenting 06/19.� cw abx per ID.� Blood
and urine cultures positive. ID following; cw follow bcx from 06/21
Constipation
Laxatives
Recurrent nephrolithiasis
Paroxysmal atrial fibrillation -treated with ablation x 3 in the past.� Not on anticoagulation.� On low-dose aspirin.� Reportedly has a history of stroke.� Follows up with Dr. Laguerre of cardiology.� Unclear why she is not on oral anticoagulation.
COPD without exacerbation -recently completed a course of steroids.� Not on home oxygen.
Permanent pacemaker
LILIA -on CPAP at bedtime.� Resume in the hospital.
Chronic heart failure preserved EF -stable.
CAD/[place] history
Hemochromatosis
GERD
Morbid obesity due to excess calories
Full code
Anticipated Discharge: Within 24 hours
Subjective/Interval History
-
Date of Service: June 23, 2023
still has some pain
Objective Data
-
Labs:
Laboratory Results
06/23/23
05:02
WBC 9.4
Hgb 12.1
Hct 36.6 L
Plt Count 223
Sodium 136
Potassium 3.7
Chloride 105
Carbon Dioxide 27
BUN 24 H
Creatinine 0.6
Glucose 82
Calcium 8.8
Vital Signs:
Vital Signs
Temp Pulse Resp BP Pulse Ox
98.2 F 63 16 132/77 94
06/23/23 11:00 06/23/23 11:00 06/23/23 11:00 06/23/23 11:00 06/23/23 11:00
I&O
06/22/23 06/23/23 06/24/23
06:59 06:59 06:59
Intake Total 1560 / 1560 1100 / 1100
Balance 1560 / 1560 1100 / 1100
--- NOTE | 2023-06-23 11:34 | W.PN.URO.CBU ---
Today's Communication / Plan
-
per hospitalist krista do outptient stone tx
Assessment / Plan
-
68F with 10mm obstructing R proximal ureteral stone and sepsis
s/p cystoscopy, ureteral stent 06/19
- Continue abx pending cultures
- Blood and urine cultures preliminary positive, Gram neg
- Outpatient procedure for kidney stone removal after clearing infection
Diagnosis
-
Date of Service: June 23, 2023
-
Patient Diagnosis:
Post Op Day:
Patient Diagnosis:
Sepsis
R ureteral stone
Post Op s/p stent placement 06/19
Subjective
-
much improved some stent pain
Objective
-
Vital Signs
Temp Pulse Resp BP Pulse Ox
98.2 F 63 16 132/77 94
06/23/23 11:00 06/23/23 11:00 06/23/23 11:00 06/23/23 11:00 06/23/23 11:00
Intake and Output
06/22/23 06/23/23 06/24/23
06:59 06:59 06:59
Intake Total 1560 / 1560 1100 / 1100
Balance 1560 / 1560 1100 / 1100
Intake:
Oral fluids 1560 / 1560 1100 / 1100
Other:
Number of approximated SMALL 2 2
amounts of urine
Number of approximated MODERATE 3 5
amounts of urine
Number of approximated LARGE 3
amounts of urine
Laboratory Results
06/23/23 05:02
06/23/23 05:02
Review of Systems
-
: Flank Pain and Urgency
Physical Exam
-
General - well developed, well nourished, no acute distress
Chest - clear bilaterally
Abdomen - soft, non-tender, positive bowel sounds, no CVAT, no incisional pain or distention
Genitalia - normal
Rectal - normal
Skin - warm & dry with no rash
Neuro - AOx3, no motor deficits
Extremities - no clubbing, no cyanosis, no edema
Incision - clean, dry
Dressing - clean, dry, intact
Care Review
Data Reviewed
CT Scan: Image Pers Reviewed
[2023-06-23 14:58] VITALS: BP 118/76
--- NOTE | 2023-06-23 15:19 | W.PN.ID1 ---
Date of Service
Date of Service: June 23, 2023
Today's Communication
- will push cipro dose to 750 mg PO BID still x14 days (through 07/02)
- qtc acceptable
- follow up with urology; stable for dc from ID perspective
Assessment / Plan
UTI due to E coli
E coli Bacteremia
Obstructing renal stone
- s/p stent placement
- will push cipro dose to 750 mg PO BID still x14 days (through 07/02)
- qtc acceptable
- follow up with urology; stable for dc from ID perspective
Chief Complaint
-: UTI
Subjective / Review of Systems
afebrile
bp stable
without leukocytosis
cr stable
complaining of colicky L flank pain
Vital Signs / Physical Exam
Vital Signs
Vital Signs
Temp Pulse Resp BP Pulse Ox
97.8 F 65 17 118/76 93
06/23/23 14:58 06/23/23 14:58 06/23/23 14:58 06/23/23 14:58 06/23/23 14:58
Physical Exam
Constitutional: No Acute Distress
Cardiovascular: Regular Rate and S1/S2; Negative Murmur or Rub
Pulmonary: Clear and Symmetric; Negative Wheezes or Rales
Gastrointestinal: Soft, Non Tender, Non Distended and Normal Bowel Sounds
Skin: Warm and Dry; Negative Rash or Jaundice
Objective Data
Lab Data
Lab Results
06/23/23 05:02
06/23/23 05:02
Estimated Creat Clear 108 ml/min 06/23/23 05:02
Lactic Acid Cancelled 06/20/23 12:30
Total Bilirubin 0.7 mg/dl (0.2-1.3) 06/22/23 04:51
AST 25 U/L (14-36) 06/22/23 04:51
ALT 22 U/L (0-35) 06/22/23 04:51
Alkaline Phosphatase 63 U/L (38-126) 06/22/23 04:51
Most recent labs reviewed.
Micro Results:
06/22/23 09:17 Blood Culture - Preliminary
Blood/Venous No Growth in 24 hours- Final report to follow
06/20/23 08:38 Blood Culture - Final
Blood/Venous Escherichia coli
Gram Stain - Final
06/20/23 08:38 Blood Culture - Final
Blood/Venous Escherichia coli
Gram Stain - Final
06/22/23 08:51 Blood Culture - Preliminary
Blood/Venous No Growth in 24 hours- Final report to follow
06/20/23 08:50 Urine Culture - Final
Urine Escherichia coli
06/20/23 12:29 Urine Culture - Final
Urine Escherichia coli
Care Review
Plan reviewed with: Physician (Dr Isael evans)
--- NOTE | 2023-06-23 16:13 | W.DCSUMMARY ---
Discharge Summary
Discharge Data
Date of Admission: 06/20/23
Date of Discharge: 06/23/23
-
Pending Results: No
Hospital Course
68-year-old female with past medical history of CHF, LILIA, permanent pacemaker, COPD, paroxysmal atrial fibrillation, CAD, hemochromatosis, GERD, morbid obesity came to the hospital with sepsis secondary to E. coli bacteremia. Patient had
obstructive uropathy secondary to proximal right ureteral stone with severe hydronephrosis on admission. Patient was seen by urology and was taken for ureteral stent on 06/20/2023. Given her bacteremia she was also followed up by infectious disease
throughout hospitalization. Blood and urine culture both were positive for E. coli. Her recent blood culture prior to the discharge were negative. Patient initially was on IV antibiotic which was later transitioned to oral ciprofloxacin prior to
discharge. She also had constipation on this hospitalization which was treated with laxatives. Once patient symptoms improved, she was then discharged home with instructions to follow-up with all her physicians outpatient.
Discharge Plan
-
Patient Disposition: Home (Routine Discharge)
Discharge Diagnosis/Procedures: Sepsis secondary to Ehrlichia coli bacteremia
Obstructive uropathy secondary to proximal right ureteral stone with severe hydronephrosis status post ureteral stent
Constipation
Diet: As tolerated and Regular
Activity: As tolerated
Driving Restrictions: As prior to admission
Bathing Restrictions: None
Referrals:
Jake Weaver MD [Active] - (you have a stent expect frequency urgency and blood in urine calll [phone] Weaver TO SCHEDULE NEXT PHASE TREATMENT ONCE HEALED IN NEAR FUTURE WE WILL LASER THE STONE AND REMOVE AND REPLACE
STENT BUT YOU MUST HEAL UP FROM [facility] INFECTION [facility] CALL NOW UPON ARRIVING HOME TO SCHEDULE[ PROBABLY END JUNE ])
Luly Floyd MD [Family Provider] - in less than 1 week
Prescriptions:
New
ciprofloxacin HCl 500 mg Tablet
750 mg PO BID 11 Days Qty: 33 0RF
docusate sodium 100 mg Capsule
100 mg PO BID Qty: 0 0RF
polyethylene glycol 3350 [HealthyLax] 17 gram Powder In Packet
17 g PO DAILY Qty: 0 0RF
tramadol 50 mg Tablet
50 mg PO Q6HPRN PRN (Reason: Moderate to severe pain) Qty: 14 0RF
Continued
aspirin 81 MG tablet,delayed release (DR/EC)
81 mg PO DAILY
lorazepam 1 MG tablet
1 mg PO TIDPRN PRN (Reason: ANXIETY)
rosuvastatin 20 MG tablet
20 mg PO HS
ascorbic acid (vitamin C) [Vitamin C] 1,000 MG tablet
2,000 mg PO DAILY
lorazepam 2 MG tablet
3 mg PO HS
ropinirole 2 MG tablet
2 mg PO DAILY
flecainide 100 MG tablet
100 mg PO BID
montelukast 10 MG tablet
10 mg PO DAILY
cholecalciferol (vitamin D3) 2,000 UNIT tablet
4,000 unit PO DAILY
allopurinol 100 MG tablet
100 mg PO DAILY
albuterol sulfate [Ventolin HFA] 90 mcg/actuation Hfa Aerosol Inhaler
1 inh INHALATION PRN PRN (Reason: sob)
fluticasone furoate-vilanterol [Breo Ellipta] 100-25 mcg/dose Blister With Device
1 inh INHALATION PRN PRN (Reason: SOB)
acetaminophen [Tylenol] 325 mg Capsule
650 mg PO Q6H PRN (Reason: pain)
albuterol sulfate 0.63 mg/3 mL Solution For Nebulization
0.63 mg INHALATION PRN PRN (Reason: SOB)
hydrocodone-acetaminophen 10-325 mg Tablet
1 tab PO Q6H PRN (Reason: pain)
Rx Instructions:
Most recent fill from [facility]: Hydrocodone-acetaminophen 5-325 mg
furosemide 40 MG tablet
40 mg PO DAILY
famotidine 20 MG tablet
20 mg PO HS
verapamil 120 MG tablet extended release
120 mg PO DAILY
pantoprazole 40 MG tablet,delayed release (DR/EC)
40 mg PO DAILY
Discharge Orders:
Discharge Patient (As Directed); Ordered 06/23/23
Ordered By: Papo Kirkland
Discharge Date and Time
Discharge Date/Time: 06/23/23 17:04
[2023-06-23] MEDS: ULTRAM 50 MG PO (16:34)
== END 2023-06-23 17:04 | disposition home or self-care (01) | DRG 854 ==
LOC: 2 SOUTH 10:21
PROVIDERS: Emergency Medicine; Physician Assistant; ADMITTING PHYSICIAN Hospitalist; ATTENDING PHYSICIAN Internal Medicine; CONSULT PHYSICIAN Student in an Organized Health Care Education/Training Program; CONSULT PHYSICIAN Urology; EMERGENCY PHYSICIAN Emergency Medicine; FAMILY PHYSICIAN Family Medicine
PROC: 0T768DZ Dilation of Right Ureter with Intraluminal Device, Via Natural or Artificial Opening Endoscopic (ICD-10-PCS; 2023-06-20)
DX: A41.51 Sepsis due to Escherichia coli [E. coli] (principal); I50.32 Chronic diastolic (congestive) heart failure; N13.6 Pyonephrosis; Z68.41 Body mass index [BMI] 40.0-44.9, adult; I48.0 Paroxysmal atrial fibrillation; E66.01 Morbid (severe) obesity due to excess calories; J44.9 Chronic obstructive pulmonary disease, unspecified; G47.33 Obstructive sleep apnea (adult) (pediatric); I25.10 Atherosclerotic heart disease of native coronary artery without angina pectoris; K21.9 Gastro-esophageal reflux disease without esophagitis; Z87.891 Personal history of nicotine dependence; Z95.0 Presence of cardiac pacemaker; Z86.73 Personal history of transient ischemic attack (TIA), and cerebral infarction without residual deficits; Z79.82 Long term (current) use of aspirin; I25.2 Old myocardial infarction
CPT/HCPCS: 71046; 74177; 74420; 76000; 80048; 80053; 81003; 81015; 83605; 83690; 85025; 87040; 87071; 87077; 87086; 87186; 87205; 93005; 94660; 96361; 96374; 96375; 97161; 97165; 99291; A4300; C1769; C2617; Q9967

== ENCOUNTER → 2023-07-06 11:12 | Outpatient (REF) | payer MEDICARE, OTHER, SELFPAY ==
[2023-07-06 12:04] LABS: Urine Albumin Trace (Neg - Trace); Urine Bilirubin Negative (Negative); Urine Character Clear (Clear); Urine Color Yellow; Urine Glucose Negative (Negative); Urine Ketone Trace (Negative); Urine Leukocyte 1+ (Negative); Urine Nitrite Negative (Negative); Urine Occult Blood 4+ (Negative); Urine Urobilinogen Negative (Neg - 1+)
[2023-07-06 12:20] LABS: Urine Mucus Few; Urine Red Blood Cell 60-70 /HPF (0-2); Urine Squamous Cell 0-2 /LPF (Few)
[2023-07-06 12:21] LABS: Urine Bacteria Few (Negative)
== END ==
LOC: SDSPAT 11:12
PROVIDERS: ATTENDING PHYSICIAN Specialist; FAMILY PHYSICIAN Family Medicine
DX: N20.0 Calculus of kidney (principal)
CPT/HCPCS: 81003; 81015; 87086

== ENCOUNTER 2023-07-23 06:24 | Day surgery (SDC) | payer MEDICARE, OTHER, SELFPAY ==
[2023-07-23] VITALS (9 sets, daily range): BP systolic 121–142; BP diastolic 52–81; BMI 41.5; BMI 40.8
[2023-07-23 12:21] LABS: Urine Albumin 2+ (Neg - Trace); Urine Bilirubin 1+ (Negative); Urine Character Very Cloudy (Clear); Urine Glucose Negative (Negative); Urine Ketone 1+ (Negative); Urine Leukocyte 1+ (Negative); Urine Nitrite Positive (Negative); Urine Occult Blood 4+ (Negative); Urine Urobilinogen 1+ (Neg - 1+); Urine pH 6.5 (5.0-9.0)
[2023-07-23 12:22] LABS: Urine Color Red
[2023-07-23 12:31] LABS: Urine Bacteria Few (Negative); Urine Red Blood Cell 70-80 /HPF (0-2)
[2023-07-23] MEDS: DILAUDID 0.25 MG IV ×2 (13:58→14:13)
[2023-07-23] MEDS: TYLENOL 650 MG PO (15:07)
[2023-07-28 15:55] LABS: Stone Analysis Mass 12 mg
== END 2023-07-23 15:41 | disposition home or self-care (01) ==
LOC: SDS 06:24
PROVIDERS: ATTENDING PHYSICIAN Specialist; FAMILY PHYSICIAN Family Medicine
DX: N20.1 Calculus of ureter (principal); A41.9 Sepsis, unspecified organism
CPT/HCPCS: 52356; 74018; 76000; 81003; 81015; 82365; 87086; A4300; C1894; C2617; J1580

== ENCOUNTER → 2023-08-07 15:45 | Outpatient (REF) | payer MEDICARE, OTHER, SELFPAY | LOC: CLAB 15:45 | PROVIDERS: ATTENDING PHYSICIAN Specialist | DX: N39.0 Urinary tract infection, site not specified (principal) | CPT/HCPCS: 87086 ==

== ENCOUNTER → 2023-09-30 10:36 | Outpatient (REF) | payer MEDICARE, OTHER, SELFPAY | LOC: HWRAD 10:36 | PROVIDERS: ATTENDING PHYSICIAN Otolaryngology Facial Plastic Surgery; FAMILY PHYSICIAN Family Medicine | DX: D11.0 Benign neoplasm of parotid gland (principal); R13.12 Dysphagia, oropharyngeal phase | CPT/HCPCS: 76536 ==

== ENCOUNTER 2023-10-12 12:57 | Inpatient (IN) | payer MEDICARE, OTHER, SELFPAY ==
[2023-10-12] VITALS (9 sets, daily range): BP systolic 127–151; BP diastolic 68–86; BMI 45.0; BMI 42.0
--- NOTE | 2023-10-12 10:24 | ED.GENMED ---
History of Present Illness
General
Chief Complaint: DVT/Possible Blood Clot
Source: patient
Exam Limitations: none
Time Seen by Provider: 10/12/23 10:16
History of Present Illness
History of Present Illness:
See MDM
Past History
Past History
ED Past Medical History: Arrthythmia (Atrial fib, Ablation X3), CHF, COPD, GERD, Hypercholesterolemia, SC, Psychiatric (Anxiety) and Other (Sleep apnea, morbid obesity, hemochromatosis, Kidney stones)
ED Past Surgical History: Gynecological (D & C), Orthopedic and Other
Social History
Tobacco: Former smoker
Alcohol: None
Personal:
Living: with family
Employment: Not employed
Family History
Family History: CAD
Phy Exam
Physical Exam
Physical Exam:
See MDM
Course
Orders/Labs/Results
Orders:
Orders
10/12/23 10:23
Electrocardiogram (*1) Urgent
Reason for Study: Shortness of Breath
EKG- Treatment ONCE
CR Chest - 2 Views Urgent
Comment:
Reason For Exam: SOB, noncompliant with lasix
10/12/23 10:24
US Periph Venous LOWER Ext LT Urgent
Comment:
Reason For Exam: L leg swelling, recent knee replacement
10/12/23 10:26
Complete Blood Count/With Diff Urgent
Comprehensive Metabolic Panel Urgent
NT-proBNP Urgent
PTT Urgent
Prothrombin Time Urgent
Troponin I Urgent
10/12/23 11:54
Furosemide [Lasix] 40 mg IV NOW STA
Abnormal Lab Results
10/12/23
10:26
WBC 11.0 H 10^3/uL
(4.8-10.8)
RBC 3.78 L 10^6/uL
(4.20-5.40)
Hgb 11.0 L g/dL
(12.0-16.0)
Hct 32.4 L %
(37.0-47.0)
Abs Immat Gran (auto) 0.1 H 10^3/uL
(0-0.05)
Absolute Neuts (auto) 8.7 H 10^3/uL
(1.4-6.5)
Absolute Lymphs (auto) 1.1 L 10^3/uL
(1.2-3.4)
Absolute Monos (auto) 0.9 H 10^3/uL
(0.1-0.6)
Neutrophils % 79.0 H %
(42.2-75.2)
Lymphocytes % 10.0 L %
(20.5-51.1)
Creatinine 0.5 L mg/dL
(0.6-1.0)
Glucose 101 H mg/dl
(70-99)
Total Protein 6.1 L g/dl
(6.3-8.2)
10/12/23 10:26
10/12/23 10:26
Vital Signs
Initial and Last Documented VS:
Initial Vital Signs
Temp Pulse Resp BP Pulse Ox
99.6 F 83 19 143/72 93
10/12/23 10:10 10/12/23 10:10 10/12/23 10:10 10/12/23 10:10 10/12/23 10:10
Last Documented Vital Signs
Temp Pulse Resp BP Pulse Ox
99.6 F 76 15 143/72 93
10/12/23 10:10 10/12/23 10:30 10/12/23 10:30 10/12/23 10:14 10/12/23 11:47
MDM/Problems Addressed
Differential Diagnosis Includes:
HPI and MDM Narrative:
68-year-old female presenting with left leg swelling and shortness of breath. Patient had a recent knee replacement at [facility] last week. She was discharged home. Patient has been doing rehab. Her physical therapist noted the calf
tenderness and suggested evaluation for DVT. However, it appears more complicated than that. Due to her limitations for getting in and out of the chair quick enough, patient has not restarted her Lasix. She stopped her Lasix last week and has
been not taking her Lasix for a week knowing that she would be unable to get out of the chair quick enough to urinate. Patient complaining of worsening shortness of breath
Will assess for DVT with ultrasound will obtain chest x-ray looking for evidence of pulmonary edema. If patient does have a DVT, will obtain CT rule out PE as well
Physical exam
General: Tachypneic, weak, elevated BMI
HEENT: protecting airway
Neck: appears supple
CV: No evidence of cyanosis. Regular rate and rhythm
Resp: No accessory muscle use. Poor air exchange
Abd: Non-distended
Extremities: Left knee because without surrounding cellulitic changes. Tenderness noted to left calf. Distal pulses intact
Neuro: alert
Psych: Normal affect
Skin: Intact
Problems Addressed including Acute and Chronic Conditions affecting care:
1. Left leg pain
Acuity: acute
Prognosis: stable
Details: Given recent knee surgery, will obtain ultrasound rule out DVT
2. Shortness of breath
Acuity: acute
Prognosis: stable
Details: Likely in setting of pulmonary edema given noncompliance with Lasix. Will obtain chest x-ray
Updates
Patient becoming mildly hypoxic requiring 2 L nasal cannula
Ultrasound negative for DVT. Chest x-ray concerning for mild pulmonary edema. Will give dose of Lasix. Given the mild hypoxia and Lasix noncompliance, will admit
Differential Diagnosis (but not limited to): Pulmonary edema, pneumonia, PE, DVT
Testing considered: D-dimer but patient is too high risk
Drug therapy (if applicable): OTC meds, please see d/c instruction regarding Rx drugs
Amount and/or Complexity of Data Reviewed
Clinical info obtained from: Patient
External data reviewed: N/A
Labs I independently reviewed (but not limited to): Troponin normal
Radiology: X-ray independently reviewed: Chest x-ray with mild pulm edema
Ultrasound report reviewed
Pulse Ox: hypoxic
EKG independently reviewed: Sinus rhythm, right axis, no STEMI
Assistant [employer]: Sinus rhythm
Critical Care: N/A
Risk of Complication:
Social Determinants of health: Good social support
Discussed with other providers: N/A
Escalation of Care includes Admit/Obs: Given the mild pulmonary edema with mild hypoxia, will admit
Occasional wrong word or 'sound a like' substitutions may have occurred due to the inherent limitations of voice recognition software. Read the chart carefully and recognize, using context, where substitutions have occurred.
*Critical Care Note
Total Time (30-74mins, 75-104mins- exclusive of procedures): Not Applicable
ED Attending Note
-
Portions of this chart may have been created with voice recognition software.� Occasional wrong word or��sound alike� substitutions may have occurred due to the inherent limitations of voice recognition software.
Discharge Plan
Departure
Patient Disposition: Admit
Date of Disposition: 10/12/23
Time of Disposition: 11:58
Admit to: Telemetry
Presentation/result/management discussed w/ accepting MD/DO: Hospitalist
Discharge Problem:
Pulmonary edema
Prescriptions:
No Action
aspirin 81 MG tablet,delayed release (DR/EC)
81 mg PO DAILY
lorazepam 1 MG tablet
1 mg PO TIDPRN PRN (Reason: ANXIETY)
rosuvastatin 20 MG tablet
20 mg PO HS
ascorbic acid (vitamin C) [Vitamin C] 1,000 MG tablet
2,000 mg PO DAILY
lorazepam 2 MG tablet
3 mg PO HS
ropinirole 2 MG tablet
2 mg PO DAILY
flecainide 100 MG tablet
100 mg PO BID
montelukast 10 MG tablet
10 mg PO DAILY
cholecalciferol (vitamin D3) 2,000 UNIT tablet
4,000 unit PO DAILY
allopurinol 100 MG tablet
100 mg PO DAILY
albuterol sulfate [Ventolin HFA] 90 mcg/actuation Hfa Aerosol Inhaler
1 inh INHALATION PRN PRN (Reason: sob)
fluticasone furoate-vilanterol [Breo Ellipta] 100-25 mcg/dose Blister With Device
1 inh INHALATION PRN PRN (Reason: SOB)
acetaminophen [Tylenol] 325 mg Capsule
650 mg PO Q6H PRN (Reason: pain)
albuterol sulfate 0.63 mg/3 mL Solution For Nebulization
0.63 mg INHALATION PRN PRN (Reason: SOB)
furosemide 40 MG tablet
40 mg PO DAILY
famotidine 20 MG tablet
20 mg PO HS
verapamil 120 MG tablet extended release
120 mg PO DAILY
pantoprazole 40 MG tablet,delayed release (DR/EC)
40 mg PO DAILY
docusate sodium 100 mg Capsule
100 mg PO BID Qty: 0 0RF
tramadol 50 mg Tablet
50 mg PO Q6HPRN PRN (Reason: Moderate to severe pain) Qty: 14 0RF
Referrals:
UNKNOWN - PT DOES,NOT KNOW [Family Provider] -
Interventions
Interventions:
*Risk Screen - Suicide Last Done: 10/12/23 10:10
*General Assessment Last Done: 10/12/23 10:10
*Neglect/Abuse Screening Last Done: 10/12/23 10:10
ED- Cardiac Assessment Last Done: 10/12/23 10:24
ED- Pulmonary Assessment Last Done: 10/12/23 10:24
ED-Peripheral Vascular Assessment Last Done: 10/12/23 10:31
ED-Skin Assessment Last Done: 07/15/24 10:31
Discharge Date and Time
Print Language: TAIWANESE
[2023-10-12 10:48] LABS: INR 1.09
[2023-10-12 10:49] LABS: APTT 29.7 Sec (23.4-35.0)
[2023-10-12 10:55] LABS: ALT (SGPT) 17 U/L (0-35); AST (SGOT) 23 U/L (14-36); Albumin 3.8 g/dl (3.5-5.0); Alkaline Phosphatase 86 U/L (38-126); Blood Urea Nitrogen 15 mg/dl (7-17); Calcium 8.9 mg/dl (8.4-10.2); Carbon Dioxide 25 mmol/L (22-30); Chloride 103 mmol/L (98-107); Estimated Creatinine Clearance 110 ml/min; Glucose 101 mg/dl (70-99); Potassium 4.4 mmol/L (3.5-5.1); Sodium 136 mmol/L (135-145); Total Protein 6.1 g/dl (6.3-8.2); eGFR > 60.00
[2023-10-12 11:04] LABS: NT-proBNP 281 pg/ml; Troponin I < 0.012 ng/ml
[2023-10-12 11:36] LABS: % Basophils 0.7 % (0-2); % Eosinophils 1.5 % (0-6); % Immature Granulocytes 0.5 % (0-0.5); % Monocytes 8.3 % (1.7-9.3); Absolute Basophils 0.1 10^3/uL (0-0.2); Absolute Eosinophils 0.2 10^3/uL (0-0.7); Absolute Immature Granulocytes 0.1 10^3/uL (0-0.05); Absolute Lymphocytes 1.1 10^3/uL (1.2-3.4); Absolute Monocytes 0.9 10^3/uL (0.1-0.6); Absolute Neutrophils 8.7 10^3/uL (1.4-6.5); Hematocrit 32.4 % (37.0-47.0); Mean Corpuscular Hgb 29.1 pg (27.0-31.0); Mean Corpuscular Volume 85.7 fL (81.0-99.0); Mean Platelet Volume 10.3 fL (7.4-10.4); Nucleated Red Blood Cells % 0 %; Platelet Count 254 10^3/uL (130-400); Red Blood Cell Count 3.78 10^6/uL (4.20-5.40); Red Cell Dist. Width 13.8 % (11.5-14.5)
[2023-10-12] MEDS: LASIX 40 MG IV ×2 (11:58→16:26)
--- NOTE | 2023-10-12 12:11 | HPS.HSE ---
Family Physician
-
Family Physician: NOT KNOW UNKNOWN - PT DOES
Chief Complaint
-
Short of breath left lower extremities edema
History of Present Illness
68-year-old with past medical history for A-fib, CHF, COPD, GERD, hyperlipidemia, anxiety, sleep apnea, morbid obesity, hemochromatosis, kidney stones presented to us with left lower extremity swelling, left calf pain and short of breath since
Thursday. Patient stated short of breath worse with pain and activity. She complained of cough and congestion on Thursday. Patient denies any chest pain. Denied any weight gain. Patient denies any headache, dizziness, syncopal episode. Patient
denies fever, chills patient denies abdominal pain, nausea, vomiting, diarrhea.. Patient denies dysuria hematuria. she stopped taking Lasix since the surgery.
Chest x-ray with mild pulmonary vascular congestion. BNP 281. Patient received a dose of Lasix in the ER for further management..
Medical History
Past Medical History
Past Medical History: Reports Other
Additional Past Medical History:
Hyperlipidemia
Supraventricular tachycardia
morbid obesity
Interstitial lung disease
Diastolic heart failure
Paroxysmal A-fib
Obstructive sleep apnea
Past Surgical History: Reports Other
Additional Past Surgical History:
Cardiac pacemaker
Left knee replacement
Right kidney stone extraction
Social History
Tobacco: Non-smoker
Alcohol: None
Drug: None
Personal:
Living: Alone
Family History
Family History: Not pertinent
Allergies / Home Medications
Allergies reflects when Allergies were last updated in [facility].
Home Medications with original date entered in [facility]
Allergy/Medication List:
Allergies
Allergy/AdvReac Type Severity Reaction Status Date / Time
hydrocodone [From Vicodin] Allergy Itching Verified 10/12/23 10:10
Home Medications
aspirin 81 mg tablet,delayed release 81 mg PO DAILY Blood Clot Prevention/Tx 12/11/09
lorazepam 1 mg tablet 1 mg PO TIDPRN PRN ANXIETY 04/12/15
rosuvastatin 20 mg tablet 20 mg PO HS High Cholesterol 04/23/18
ascorbic acid (vitamin C) 1,000 mg tablet (Vitamin C) 2,000 mg PO DAILY Supplement 09/27/18
flecainide 100 mg tablet 100 mg PO BID Arrhythmia 09/27/18
lorazepam 2 mg tablet 3 mg PO HS Mental Health/Anxiety 09/27/18
montelukast 10 mg tablet 10 mg PO DAILY ASTHMA 09/27/18
ropinirole 2 mg tablet 2 mg PO DAILY Neurological Condition 09/27/18
cholecalciferol (vitamin D3) 50 mcg (2,000 unit) tablet 4,000 unit PO DAILY Supplement 11/23/19
allopurinol 100 mg tablet 100 mg PO DAILY Gout 03/15/21
albuterol sulfate 90 mcg/actuation aerosol inhaler (Ventolin HFA) 1 inh inhalation PRN PRN sob 04/16/22
fluticasone furoate 100 mcg-vilanterol 25 mcg/dose inhalation powder (Breo Ellipta) 1 inh inhalation PRN PRN SOB 04/16/22
acetaminophen 325 mg capsule (Tylenol) 650 mg PO Q6H PRN pain 05/05/22
albuterol sulfate 0.63 mg/3 mL solution for nebulization 0.63 mg inhalation PRN PRN SOB 08/22/22
famotidine 20 mg tablet 20 mg PO HS Gastrointestinal Issue 06/20/23
furosemide 40 mg tablet 40 mg PO DAILY Fluid Retention/Swelling 06/20/23
pantoprazole 40 mg tablet,delayed release 40 mg PO DAILY Gastrointestinal Issue 06/20/23
verapamil 120 mg tablet,extended release 120 mg PO DAILY Blood Pressure 06/20/23
docusate sodium 100 mg capsule 100 mg PO BID #0 caps 06/23/23
tramadol 50 mg tablet 50 mg PO Q6HPRN PRN Moderate to severe pain #14 tabs 06/23/23
Review of Systems
-
Constitutional: Reports No Symptoms
EENT: Reports No Symptoms
Respiratory: Reports No Symptoms
Cardiac: Reports No Symptoms
Abdomen/GI: Reports No Symptoms
: Reports No Symptoms
Musculoskeletal: Reports Edema (left LE edema)
Skin: Reports No Symptoms
Neurological: Reports No Symptoms
Endocrine: Reports No Symptoms
Hematologic/Lymphatic: Reports No Symptoms
Psych: Reports No Symptoms
Physical Exam
Vital Signs
Vital Signs
Temp Pulse Resp BP Pulse Ox
99.6 F 68 15 145/85 93
10/12/23 10:10 10/12/23 11:58 10/12/23 10:30 10/12/23 11:58 10/12/23 11:47
Physical Exam
General: Well Developed, Well Nourished and No Apparent Distress
HEENT: NormoCephalic, Moist mucous membranes and Atraumatic
Respiratory: Clear
Cardiac: S1/S2 and Regular Rhythm; No Murmur or Rub
GI: Soft, Non Tender, Non Distended and Normal Bowel Sounds; No Organomegaly
Rectal: Deferred by Provider
Musculoskeletal: No Clubbing, No Cyanosis and Other (left Le edema)
Skin: No Rash
Neuro: AO x 3 and Nonfocal/grossly intact
Psych: Calm
Laboratory Results
-
10/12/23 10:26
10/12/23 10:26
Laboratory Results
PT 14.0 Sec (11.4-14.6) 10/12/23 10:26
INR 1.09 10/12/23 10:26
APTT 29.7 Sec (23.4-35.0) 10/12/23 10:26
Total Bilirubin 1.0 mg/dl (0.2-1.3) 10/12/23 10:26
AST 23 U/L (14-36) 10/12/23 10:26
ALT 17 U/L (0-35) 10/12/23 10:26
Alkaline Phosphatase 86 U/L (38-126) 10/12/23 10:26
Troponin I < 0.012 ng/ml 10/12/23 10:26
Data Reviewed
-
Diagnostic Radiology: Report Reviewed by me
Lab Data: Labs Reviewed by me
Impression/Plan
-
# acute hypoxic respiratory failure likely from pulmonary edema
-Patient requiring 2 L of oxygen
-Chest x-ray with mild pulmonary edema
-No DVT
-Received a dose of Lasix in ER
-Continue supplemental oxygen to keep sat greater than 92
-Wean as tolerated.
-IV Lasix continued
-Strict KENNEDY
-Daily weight
#recent left knee replacement
-incision c/d/i
-orthopedic consulted
# Leukocytosis likely stress reaction
-WBCs 11.0
-Patient remained afebrile
-obtain UA
# Anemia likely postop
-Hemoglobin 11.0
-No active bleeding
-Continue to monitor
#Paroxysmal atrial fibrillation
-treated with ablation x 3 in the past.� Not on anticoagulation.
-Permanent pacemaker
-Flecainide continued
#COPD without exacerbation
-nebs from home continued
-Singulair continued
#LILIA -on CPAP at bedtime.�
Chronic heart failure preserved EF -stable.
#CAD/NE history
#Hemochromatosis
#GERD
-PPI continued
#Morbid obesity due to excess calories
#Full code
[2023-10-12] MEDS: TAMBOCOR 100 MG PO ×2 (14:26→20:05)
--- NOTE | 2023-10-12 14:31 | CON.CAR ---
Addendum entered and electronically signed by Joshua Sotelo MD 10/12/23 18:19:
68 yo female with PMH of chronic HFPEF, recent left TKA last week, SSS s/p dual chamber PPM 2022, prior ablation of A fib and flutter. She stopped taking lasix at home due to mobility issues post op, with concern for getting to restroom in time.
She now has SOB and edema. Exam with RRR, no murmurs, 2+ LE edema. Cr 0.5.
Acute on chronic HFPEF in setting of medical non-compliance. Continue IV lasix with monitor of labs and tele. Check echo.
Original Note:
Consultation
Consultation Request
Date/Time Consultation Requested: 10/12/23 2:00 pm
Date/Time Consultation Performed: 10/12/23 2:35 pm
Requesting Provider: Fallon Louis CRNP
Performing Provider: Noelle Bates for Joshua Esparza
Reason for Consultation: CHF
Medical History
-
Chief Complaint: Leg swelling and SOB
History of Present Illness:
68 Yo F with a complex PMHx presents to the hospital with worsening LLE swelling, redness and hotness with skin color change in the back of her left leg x 3 days s/p left knee replacement. Her PMHx is significant for Paroxysmal A-fib s/p ablation x
3, SVT, paroxysmal A. tach, CHF, sick sinus syndrome s/p permanent cardiac pacemaker placement, pulmonary vein stenosis, pulmonary hypertension, melanoma s/p excision and in remission, obstructive and restrictive lung disease, LILIA on CPAP,
hemochromatosis, nephrolithiasis, hypertension, hyperlipidemia, morbid obesity with BMI 43.
Her left leg swelling started 1 day after discharge from the hospital, progressively became worse, and is associated with dyspnea on exertion. Left leg swelling was worse with redness, hotness, skin color changes in the back of her leg, and started
to hurt with pain being worse at 7-8/10 in intensity. Eventually due to her inability to bear weight on the leg secondary to swelling patient discontinued taking her oral Lasix as she could not walk to the restroom. Her dyspnea on exertion worsened
after discontinuing Lasix, and for the last 1 days associated with chest pressure on left side of her chest about 3-5/10 in intensity, and nonradiating. She slept in recliner yesterday night.
Denies having palpitations, lightheadedness, dizziness, abdominal pain, fever, chills, nausea, vomiting, bowel or bladder habit changes.
Past Medical History
Past Medical History: Other (Paroxysmal A-fib s/p ablation x 3, SVT, paroxysmal A. tach, CHF, sick sinus syndrome s/p permanent cardiac pacemaker placement, pulmonary vein stenosis, pulmonary hypertension, obstructive and restrictive lung disease,
LILIA on CPAP, hemochromatosis, nephrolithiasis, hypertension, hyperlipidemia, morb)
Past Surgical History: Other (Left knee replacement x 2, permanent pacemaker placement-2022, renal stone extraction.)
Social History
Tobacco: Former Smoker (Half pack a day for 10 years, quit smoking greater than 15 years ago.)
Alcohol: None
Drug: None
Personal:
Living: With Family
Employment: Disabled
Family History
Family History: Other (Bad heart and mother (valvular heart disease), brother-both diagnosed in their 40s. Melanomas.)
Allergies / Home Medications
Allergy/AdvReac Type Severity Reaction Status Date / Time
hydrocodone [From Vicodin] Allergy Itching Verified 10/12/23 10:10
�Medication �Instructions �Recorded �Confirmed �Type
aspirin 81 mg tablet,delayed 81 mg PO DAILY Blood Clot 12/11/09 10/12/23 History
release Prevention/Tx
lorazepam 1 mg tablet 1 mg PO TIDPRN PRN ANXIETY 04/12/15 10/12/23 History
rosuvastatin 20 mg tablet 20 mg PO HS High Cholesterol 04/23/18 10/12/23 History
ascorbic acid (vitamin C) 1,000 mg 2,000 mg PO DAILY Supplement 09/27/18 07/23/23 History
tablet (Vitamin C)
flecainide 100 mg tablet 100 mg PO BID Arrhythmia 09/27/18 10/12/23 History
montelukast 10 mg tablet 10 mg PO DAILY ASTHMA 09/27/18 10/12/23 History
ropinirole 2 mg tablet 2 mg PO DAILY Neurological 09/27/18 07/23/23 History
Condition
cholecalciferol (vitamin D3) 50 4,000 unit PO DAILY Supplement 11/23/19 10/12/23 History
mcg (2,000 unit) tablet
allopurinol 100 mg tablet 100 mg PO DAILY Gout 03/15/21 10/12/23 History
albuterol sulfate 90 mcg/actuation 1 inh inhalation PRN PRN sob 04/16/22 10/12/23 History
aerosol inhaler (Ventolin HFA)
fluticasone furoate 100 1 inh inhalation PRN PRN SOB 04/16/22 10/12/23 History
mcg-vilanterol 25 mcg/dose
inhalation powder (Breo Ellipta)
albuterol sulfate 0.63 mg/3 mL 0.63 mg inhalation PRN PRN SOB 08/22/22 10/12/23 History
solution for nebulization
famotidine 20 mg tablet 20 mg PO HS Gastrointestinal Issue 06/20/23 10/12/23 History
furosemide 40 mg tablet 40 mg PO DAILY Fluid 06/20/23 10/12/23 History
Retention/Swelling
pantoprazole 40 mg tablet,delayed 40 mg PO DAILY Gastrointestinal 06/20/23 10/12/23 History
release Issue
verapamil 120 mg tablet,extended 120 mg PO DAILY Blood Pressure 06/20/23 10/12/23 History
release
Review of Systems
-
History Source: Patient
Constitutional: Fatigue
EENT: No Symptoms
Respiratory: Trouble Breathing (On exertion and orthopnea.)
Cardiac: Other (Chest pressure.)
Abdomen/GI: No Symptoms
: No Symptoms
Musculoskeletal: Joint Swelling and Edema
Skin: Other (Skin color changes in the left lower extremity.)
Neurological: No Symptoms
Hematologic/Lymphatic: No Symptoms
Physical Exam
Vital Signs
Temp Pulse Resp BP Pulse Ox
98.2 F 73 24 131/82 99
10/12/23 14:27 10/12/23 13:13 10/12/23 13:13 10/12/23 14:26 10/12/23 14:27
Lab Results
10/12/23 10:26
10/12/23 10:26
Troponin I < 0.012 ng/ml 10/12/23 10:26
Fyi-D-Wyreaqptdni Pept 281 pg/ml 10/12/23 10:26
Physical Exam
General: Well Developed, Well Nourished and Respiratory Distress (Mild respiratory distress, on 2 L nasal cannula flow.)
HEENT: Normocephalic, Anicteric and Moist Mucous Membranes
Respiratory: Wheezes (In bilateral lobes, right > left.) and Crackles (In bilateral lobes, left > right.)
Cardiac: S1/S2, Regular Rhythm, Murmur (Systolic murmur 3/6.) and Anthony's Sign
GI: Soft, Non Distended, Normal Bowel Sounds and Other (Tender in the right upper quadrant on palpation, could not appreciate organomegaly due to underlying obesity.)
Musculoskeletal: Edema (3+, nonpitting in LLE, wound dressing intact on the knee, mildly erythematous and tenderness noted. 1+ pitting edema in RLE.)
Skin: Warm
Neuro: AO x 3
Psych: Calm
Impression / Plan
-
Background -
68-year-old female known to cardiology service in the past for extensive complicated cardiac history-paroxysmal A-fib s/p ablation x 3,SVT, paroxysmal A. tach, CHF, sick sinus syndrome s/p permanent cardiac pacemaker placement, pulmonary vein
stenosis, pulmonary hypertension, obstructive and restrictive lung disease, LILIA on CPAP, hemochromatosis, melanoma s/p excision and in remission, nephrolithiasis, hypertension, hyperlipidemia, morbid obesity with BMI 43 presents to the hospital with
left lower extremity edema and SOB. Cardiology consulted for acute decompensated heart failure.
Impression -
Dyspnea on exertion--
- Acute exacerbation of heart failure, acute on chronic, unknown type. Echo pending.
- Likely HFpEF based on most recent echocardiogram-06/12/2022.
- Patient noncompliant with Lasix s/p surgery.
- A dose of IV Lasix given in the ER. Continue IV Lasix 40 mg once a day.
- Salt and fluid restricted diet, monitor I's and O's, weights, renal function.
- Will evaluate patient for GDMT-SGLT2, BB, MRA, ARB after echo results.
-Given her history of COPD, restrictive lung disease and physical examination evidence for wheezing, there can be some pulmonary component as well.
Pedal edema-
-Peripheral vascular ultrasound negative for deep vein thrombosis.
-CT chest pending for pulmonary embolism.
Paroxysmal A. tach-
-Currently on flecainide and verapamil, well-controlled with antiarrhythmics.
Sick sinus syndrome-
-S/p permanent pacemaker placement-05/05/2022.
-Atrial paced rhythm noted on EKG.
Paroxysmal A-fib-
-No evidence of A-fib after cardiac ablation
-S/p cardiac ablation in January 2008, April 2009 and November 2009.
-Previously on warfarin anticoagulation and now off of anticoagulation.
Leukocytosis with neutrophilia-likely reactive to recent surgery.
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
LILIA on home CPAP.
Obstructive and restrictive lung disease
Systemic hypertension
Morbid obesity-BMI 43.
Subjective -
Patient feels a little better in terms of shortness of breath, reports that her leg still hurts.
Data reviewed -
EKG-10/12/2023-atrial paced sinus rhythm, right axis deviation.
Troponin, proBNP-10/12/2023-0.012, 281 respectively
Chest x-ray-10/12/2023-mild pulmonary vascular congestion.
Echocardiogram-06/12/2022-normal ventricular size, systolic function, resolved pericardial effusion when compared to 05/07/2022.
Cardiac catheterization-02/11/2021-
Severely elevated LVEDP, severely elevated post pulmonary to LV mean gradient, moderate to severely elevated pulmonary artery pressure WHO class II.
Data Reviewed
-
EKG: Tracing Personally Visualized and interpreted
Radiology: Image Personally Visualized and interpreted
Ultrasound: Image Personally Visualized and interpreted
Medical Tests (Nuc Med, Echo etc): Image Personally Visualized and interpreted
Labs: Labs Reviewed by me
--- NOTE | 2023-10-12 15:18 | W.PN.UPDATE ---
Update Note
Progress Note Update
This note serves as an addendum to the H&P by MEENU Rapp on October 12, 2023.
68-year-old with past medical history for A-fib, CHF, COPD, GERD, hyperlipidemia, anxiety, sleep apnea, morbid obesity, hemochromatosis, kidney stones presented with left lower extremity swelling, left calf pain and short of breath for the previous
2 days. Patient stated shortness of breath becamse worse with pain and activity. She complained of cough and congestion about 3 days ago. Patient denies any chest pain. Denied any weight gain. Patient denies any headache, dizziness, syncopal
episode. Patient denies fever, chills patient denies abdominal pain, nausea, vomiting, diarrhea. Patient stopped taking Lasix since her knee surgery last week as it was hard for her to get up out bed as she could not move with her leg after the
surgery.
Vital Signs
Afebrile, HR and BP okay
RR in the 20s at times
Saturating in the 90s on 2 liters of oxygen
Physical Exam
General: Well Developed, Well Nourished and No Apparent Distress
HEENT: NormoCephalic, Moist mucous membranes and Atraumatic
Respiratory: Clear
Cardiac: S1/S2 and Regular Rhythm; No Murmur or Rub
GI: Soft, Non Tender, Non Distended and Normal Bowel Sounds; No Organomegaly
Rectal: Deferred by Provider
Musculoskeletal: No Clubbing, No Cyanosis and Other (left Le edema)
Skin: No Rash
Neuro: AO x 3 and Nonfocal/grossly intact
Psych: Calm
Assessment/Plan
#Acute hypoxic respiratory failure likely from pulmonary edema
-Patient requiring 2 L of oxygen
-BNP low but patient is morbidly obese
-Chest x-ray with mild pulmonary edema
-No DVT
-CTA chest with no PE
-Received a dose of Lasix in ER
-Continue supplemental oxygen to keep sat greater than 90
-Wean as tolerated.
-IV Lasix 40 mg BID
-Check echocardiogram
-Pure Wick
-Strict I's and O's
-Daily weights
#recent left knee replacement
-incision c/d/i
-orthopedic consulted (patient had surgery with Dr. Carvalho of [facility] at [facility])
-Continue Aspirin 81 mg BID DVT prophylaxis
#Constipation
-Last BM 4 to 5 days prior to admission
-Continue bowel regimen
# Leukocytosis likely stress reaction
-WBCs 11.0
-Patient remained afebrile
-obtain UA
# Anemia likely postop
-Hemoglobin 11.0
-No active bleeding
-Continue to monitor
#Paroxysmal atrial fibrillation
-treated with ablation x 3 in the past. Not on anticoagulation.
-Permanent pacemaker
-Flecainide continued
#COPD without exacerbation
-nebs from home continued
-Singulair continued
#LILIA -on CPAP at bedtime.
Chronic heart failure preserved EF -stable.
#CAD/MO history
#Hemochromatosis
#GERD
-PPI continued
#Morbid obesity due to excess calories
#Full code
#DVT Prophylaxis: Continue Aspirin 81 mg BID prescribed by patient's orthopedic surgeon
--- NOTE | 2023-10-12 15:22 | PTCARENOTE ---
pt presents from ED via stretcher. pt is AAO*3, Vss, 2L 02. pt c/o pain on her left leg 11/06. pt is oriented to the room. call ayala within the reach. will continue plan of care.
[2023-10-12] MEDS: MIRALAX 17 GRAMS PO (16:27)
[2023-10-12] MEDS: ROXICODONE 10 MG PO ×2 (16:32→22:26)
[2023-10-12 16:47] LABS: Urine Albumin Negative (Neg - Trace); Urine Bilirubin Negative (Negative); Urine Character Clear (Clear); Urine Color Straw; Urine Glucose Negative (Negative); Urine Ketone Negative (Negative); Urine Leukocyte Negative (Negative); Urine Nitrite Negative (Negative); Urine Occult Blood Negative (Negative); Urine Urobilinogen Negative (Neg - 1+)
[2023-10-12] MEDS: SENOKOT-S 1 TABLET PO (20:05)
[2023-10-12] MEDS: LOVENOX 40 MG SC (20:13)
--- NOTE | 2023-10-12 20:51 | CON.ORTHO ---
Consultation
-
Date/Time Consultation Requested: 1 PM 10/12/2023
Date/Time Consultation Performed: 830 PM 10/12/2023
Requesting Provider: Heriberto
Performing Provider: Baljinder
Reason for Consultation: s/p recent left TKA
Consultation - Orthopedics
History
HPI: 68-year-old female history of obesity status post recent left total knee arthroplasty last week at [facility] with Dr. Dawn presented to the emergency department with shortness of breath as well as complaints of left lower extremity
swelling. She was ultimately admitted to the medical service for pulmonary congestion and orthopedics was consulted for further evaluation and treatment. This evening patient actually reports that her chief complaint of left leg swelling has
improved dramatically since receiving Lasix during this hospitalization. She reports that she does take Lasix at baseline but had been unable to take her medication as she had had significant difficulty ambulating at home. She actually reports
very little to no knee pain today. She is actually quite happy with the results of her surgery thus far.
Allergies / Home Medications
Past medical history A-fib, congestive heart failure, COPD, GERD, hyperlipidemia, anxiety, sleep apnea, morbid obesity, hemochromatosis
Past surgical history: Recent left total knee arthroplasty cardiac ablation, pacemaker placement, renal stone extraction
Social history: Former smoker, lives with family
Family history: Not pertinent
Allergy/AdvReac Type Severity Reaction Status Date / Time
hydrocodone [From Vicodin] Allergy Itching Verified 10/12/23 10:10
�Medication �Instructions �Recorded
aspirin 81 mg tablet,delayed 81 mg PO BID Blood Clot 12/11/09
release Prevention/Tx
lorazepam 1 mg tablet 3 mg PO HS 04/12/15
rosuvastatin 20 mg tablet 20 mg PO HS High Cholesterol 04/23/18
ascorbic acid (vitamin C) 1,000 mg 1,000 mg PO DAILY Supplement 09/27/18
tablet (Vitamin C)
flecainide 100 mg tablet 100 mg PO BID Arrhythmia 09/27/18
montelukast 10 mg tablet 10 mg PO DAILY ASTHMA 09/27/18
ropinirole 2 mg tablet 2 mg PO HS Neurological Condition 09/27/18
cholecalciferol (vitamin D3) 50 2,000 unit PO DAILY Supplement 11/23/19
mcg (2,000 unit) tablet
allopurinol 100 mg tablet 100 mg PO DAILY Gout 03/15/21
albuterol sulfate 90 mcg/actuation 2 inh inhalation R Q4HPRN PRN sob 04/16/22
aerosol inhaler (Ventolin HFA)
fluticasone furoate 100 1 inh inhalation R DAILYPRN PRN SOB 04/16/22
mcg-vilanterol 25 mcg/dose
inhalation powder (Breo Ellipta)
famotidine 20 mg tablet 20 mg PO HS Gastrointestinal Issue 06/20/23
furosemide 40 mg tablet 40 mg PO DAILY Fluid 06/20/23
Retention/Swelling
pantoprazole 40 mg tablet,delayed 40 mg PO DAILY Gastrointestinal 06/20/23
release Issue
verapamil 120 mg tablet,extended 120 mg PO DAILY Blood Pressure 06/20/23
release
lorazepam 2 mg tablet 2 mg PO DAILYPRN PRN anxiety 10/12/23
oxycodone 10 mg tablet 10 mg PO Q4HPRN PRN severe pain 10/12/23
Vital Signs / Lab Results
Temp Pulse Resp BP Pulse Ox
98.4 F 83 20 151/69 95
10/12/23 19:00 10/12/23 19:00 10/12/23 19:00 10/12/23 19:00 10/12/23 20:05
10/12/23 10:26
10/12/23 10:26
10 point review systems reviewed and negative unless otherwise stated
General: Pleasant, no acute distress at rest, nasal cannula in place
Musculoskeletal left lower extremity
Dressing over left knee clean dry and intact without bloody drainage
Very minimal swelling over the left lower extremity certainly no pitting edema on examination
Positive EHL, FHL, ankle dorsiflexion, plantarflexion
There is no tenderness palpation of her calf my examination
Diagnostic studies
Doppler study lower extremity as well as CTA chest report reviewed. No evidence of DVT or PE
Assessment / Plan
68-year-old female status post recent left total knee arthroplasty with complaints of shortness of breath left lower extremity swelling without evidence of PE or DVT. She has been diagnosed with some pulmonary congestion likely related to her
baseline congestive heart failure. She reports that her swelling is dramatically improved with administration of Lasix. She does have outpatient follow-up planned with Dr. Dawn and would certainly recommend following this. She has been taking
aspirin 81 mg twice daily would recommend continuing this on discharge. Can continue with Lovenox while admitted in the hospital. Would recommend continued mobilization with physical therapy while hospitalized and outpatient follow-up with
López. Will let him know of her hospitalization and update him on patient's status. Please reach out with any questions or concerns
[2023-10-12] MEDS: CRESTOR 20 MG PO (22:22)
[2023-10-12] MEDS: ATIVAN 3 MG PO (22:22)
[2023-10-12] MEDS: PEPCID 20 MG PO (22:22)
[2023-10-13] VITALS (7 sets, daily range): BP systolic 109–160; BP diastolic 63–82; PULSE 83; O2SAT 94; BMI 41.6
[2023-10-13] MEDS: ROXICODONE 10 MG PO ×4 (04:46→22:23)
[2023-10-13 05:16] LABS: Hematocrit 33.1 % (37.0-47.0); Hemoglobin 11.3 g/dL (12.0-16.0); Mean Corp Hgb Conc. 34.1 g/dL (33.0-37.0); Mean Corpuscular Hgb 29.2 pg (27.0-31.0); Mean Corpuscular Volume 85.5 fL (81.0-99.0); Mean Platelet Volume 9.7 fL (7.4-10.4); Platelet Count 254 10^3/uL (130-400); Red Blood Cell Count 3.87 10^6/uL (4.20-5.40); Red Cell Dist. Width 13.9 % (11.5-14.5); White Blood Cell Count 10.3 10^3/uL (4.8-10.8)
[2023-10-13 05:51] LABS: ALT (SGPT) 16 U/L (0-35); AST (SGOT) 19 U/L (14-36); Albumin 3.7 g/dl (3.5-5.0); Alkaline Phosphatase 94 U/L (38-126); Blood Urea Nitrogen 13 mg/dl (7-17); Carbon Dioxide 28 mmol/L (22-30); Chloride 99 mmol/L (98-107); Direct Bilirubin 0.3 mg/dl (0.0-0.4); Estimated Creatinine Clearance 105 ml/min; Glucose 92 mg/dl (70-99); HDL Cholesterol 61 mg/dl; LDL Cholesterol, Calculated 51 mg/dl; Magnesium 1.9 mg/dl (1.6-2.3); Potassium 3.6 mmol/L (3.5-5.1); Sodium 136 mmol/L (135-145); Total Bilirubin 0.9 mg/dl (0.2-1.3); Total Cholesterol 138 mg/dl (50-199); Triglyceride 134 mg/dl (10-149); Very Low Density Lipoprotein 26 mg/dl (0-30); eGFR > 60.00
[2023-10-13 06:12] LABS: TSH Reflex To Free T4 3.36 uIU/ml (0.47-4.68)
--- NOTE | 2023-10-13 08:26 | W.PN.CD ---
Addendum entered and electronically signed by Lester Haddad MD 10/13/23 11:08:
Patient seen and examined independently. Also seen with PGY 2
68-year-old woman with a previous Struve A-fib ablation, SVT, PAT, CHF, pacemaker pulmonary vein stenosis pulmonary hypertension COPD and restrictive lung disease, LILIA hemochromatosis previous history of melanoma status post orthopedic surgery
patient had some shortness of breath and being treated for HFpEF. No complaints of shortness of breath today remains on 2 L nasal cannula. Appears euvolemic on exam.
-Wean O2 off
-Transition to oral diuretic
Addendum entered and electronically signed by Noelle Benz MD, Resident 10/13/23 11:05:
Original Note:
Today's Communication / Plan
-
- Switch to oral lasix
- wean off oxygen as tolerated.
Impression / Plan
-
Background -
68-year-old female known to cardiology service in the past for extensive complicated cardiac history-paroxysmal A-fib s/p ablation x 3,SVT, paroxysmal A. tach, CHF, sick sinus syndrome s/p permanent cardiac pacemaker placement, pulmonary vein
stenosis, pulmonary hypertension, obstructive and restrictive lung disease, LILIA on CPAP, hemochromatosis, melanoma s/p excision and in remission, nephrolithiasis, hypertension, hyperlipidemia, morbid obesity with BMI 43 presents to the hospital with
left lower extremity edema and SOB. Cardiology consulted for acute decompensated heart failure.
Impression -
Dyspnea on exertion--
- Acute exacerbation of heart failure, acute on chronic, unknown type. Echo pending.
- Likely HFpEF based on most recent echocardiogram-06/12/2022.
- Patient noncompliant with Lasix s/p surgery.
- IV lasix 40mg X day 3. Switch to oral lasix from tomorrow.
- Salt and fluid restricted diet, monitor I's and O's, weights, renal function.
- Will evaluate patient for GDMT-SGLT2, BB, MRA, ARB after echo results.
- Wean off oxygen as tolerated.
Pedal edema-
-significantly improved from yesterday
-Peripheral vascular ultrasound negative for deep vein thrombosis.
-CT chest negative for pulmonary embolism.
Paroxysmal A. tach-
-Currently on flecainide and verapamil, well-controlled with antiarrhythmics.
Sick sinus syndrome-
-S/p permanent pacemaker placement-05/05/2022.
-Atrial paced rhythm noted on EKG.
Paroxysmal A-fib-
-No evidence of A-fib after cardiac ablation
-S/p cardiac ablation in January 2008, April 2009 and November 2009.
-Previously on warfarin anticoagulation and now off of anticoagulation.
Leukocytosis with neutrophilia-likely reactive to recent surgery.
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
LILIA on home CPAP.
Obstructive and restrictive lung disease
Systemic hypertension
Morbid obesity-BMI 43.
Subjective -
Patient feels a little better in terms of shortness of breath, reports that her leg still hurts.
Data reviewed -
Telesummary - 10/13/23 - Atrial paced sinus rhythm.
EKG-10/12/2023-atrial paced sinus rhythm, right axis deviation.
Troponin, proBNP-10/12/2023-0.012, 281 respectively
Chest x-ray-10/12/2023-mild pulmonary vascular congestion.
Echocardiogram-06/12/2022-normal ventricular size, systolic function, resolved pericardial effusion when compared to 05/07/2022.
Cardiac catheterization-02/11/2021-
Severely elevated LVEDP, severely elevated post pulmonary to LV mean gradient, moderate to severely elevated pulmonary artery pressure WHO class II.
Physical Exam
Vital Signs/Labs
Vital Signs
Temp Pulse Resp BP Pulse Ox
99.6 F 77 18 136/65 91
10/13/23 07:10 10/13/23 07:10 10/13/23 07:10 10/13/23 07:10 10/13/23 07:10
10/12/23 10/13/23 10/14/23
06:59 06:59 06:59
Actual Weight 106.594 kg
10/13/23 04:15
10/13/23 04:15
PT 14.0 Sec (11.4-14.6) 10/12/23 10:26
INR 1.09 10/12/23 10:26
APTT 29.7 Sec (23.4-35.0) 10/12/23 10:26
Magnesium 1.9 mg/dl (1.6-2.3) 10/13/23 04:15
Triglycerides 134 mg/dl (10-149) 10/13/23 04:15
LDL Cholesterol, Calc 51 mg/dl 10/13/23 04:15
VLDL Cholesterol, Calc 26 mg/dl (0-30) 10/13/23 04:15
HDL Cholesterol 61 mg/dl 10/13/23 04:15
10/12/23
10:26
Lnk-T-Tlbzivaolge Pept 281
LAB Results
10/12/23
10:26
Troponin I < 0.012
Physical Exam
Constitutional: Comfortable
Cardiovascular: Rhythm & rate is regular, S1S2 is normal and Murmur/rub/gallop absent
Respiratory: Lungs clear to auscul. and Crackles Absent
GI: Soft
Neuro/Psych: AO x 3
Data Reviewed
-
Date of Service: October 13, 2023
EKG: Tracing Personally Visualized and interpreted
Echo: Report Reviewed by me
X-Ray/CT/US/MRI/NUC/PET: Image Personally Visualized and interpreted
Medical Tests (PFT, Pathology etc): Report Reviewed by me
Labs: Labs Reviewed by me
[2023-10-13] MEDS: MIRALAX 17 GRAMS PO (08:35)
[2023-10-13] MEDS: LASIX 40 MG IV ×2 (08:37→15:41)
[2023-10-13] MEDS: REQUIP 2 MG PO (08:37)
[2023-10-13] MEDS: ZYLOPRIM 100 MG PO (08:37)
[2023-10-13] MEDS: VITAMIN D3 (cholecalciferol) 50 MCG PO (08:38)
[2023-10-13] MEDS: SENOKOT-S 1 TABLET PO ×2 (08:38→20:55)
[2023-10-13] MEDS: TAMBOCOR 100 MG PO ×2 (08:38→20:55)
[2023-10-13] MEDS: PROTONIX 40 MG PO (08:38)
[2023-10-13] MEDS: CALAN EXTENDED RELEASE 120 MG PO (08:38)
[2023-10-13] MEDS: SINGULAIR 10 MG PO (08:38)
[2023-10-13] MEDS: ASPIR LOW (ENTERIC COATED) 81 MG PO (08:38)
[2023-10-13] MEDS: DILAUDID 0.25 MG IV ×3 (08:58→21:05)
[2023-10-13] MEDS: LOVENOX 40 MG SC ×2 (09:37→20:54)
--- NOTE | 2023-10-13 10:57 | CARDSERVLU ---
Echocardiogram with Lumason completed after protocol screening completed. Allergies verified.
Patent IV site: __existing slightly positional site RAC, flushed before use.___
IV site flushed with 0.9% NaCl pre and post administration.
Diluted bolus method utilized to enhance visualization of ventricular kramer.
Total volume given: __4.0__ mL under direction echosonographer
Patient tolerated all procedures well without complications.
--- NOTE | 2023-10-13 13:13 | W.PN.HOSP.TC ---
Today's Communication/Plan
-
PT/OT
Pain control
Address constipation -- suppository added
Diuresis
Assessment / Plan
Assessment / Plan
Physical Exam
General: Moderate distress due to pain
HEENT: Normocephalic
Respiratory: Clear
Cardiac: S1/S2 and Regular Rhythm
GI: Soft, Non Tender, Non Distended and Normal Bowel Sounds
Musculoskeletal: No Cyanosis and Other (left Le edema)
Skin: Warm. Dry.
Neuro: AO x 3 and Nonfocal/grossly intact
Psych: Calm
Assessment/Plan
#Acute hypoxic respiratory failure likely from pulmonary edema
-Patient requiring 2 L of oxygen
-BNP low but patient is morbidly obese
-Chest x-ray with mild pulmonary edema
-No DVT
-CTA chest with no PE
-Received a dose of Lasix in ER
-Continue supplemental oxygen to keep sat greater than 90
-Wean as tolerated.
-IV Lasix 40 mg BID was given --> now transitioned to oral diuretics
-Check echocardiogram
-Pure Wick
-Strict I's and O's
-Daily weights
#recent left knee replacement (on October 07, 2023 as per patient)
-incision c/d/i
-orthopedic consulted (patient had surgery with Dr. Carvalho of [facility] at [facility])
-Continue Aspirin 81 mg BID DVT prophylaxis
-Pain is likely related to swelling and postoperative pain
-Continue pain control, mobilization with physical therapy and close outpatient follow-up with patient's surgeon Dr. Carvalho
#Constipation
-Last BM 4 to 5 days prior to admission
-Continue bowel regimen
-Will add Dulcolax suppository
# Leukocytosis likely stress reaction
-WBCs 11.0
-Patient remained afebrile
-Urinalysis did not suggest a UTI
# Anemia likely postop
-Hemoglobin 11.0
-No active bleeding
-Continue to monitor
#Paroxysmal atrial fibrillation
-treated with ablation x 3 in the past. Not on anticoagulation.
-Permanent pacemaker
-Flecainide continued
#COPD without exacerbation
-nebs from home continued
-Singulair continued
#LILIA -on CPAP at bedtime.
Chronic heart failure preserved EF -stable.
#CAD/PR history
#Hemochromatosis
#GERD
-PPI continued
#Morbid obesity due to excess calories
#Full code
#DVT Prophylaxis: Lovenox and SCDs while inpatient, Aspirin 81 mg BID on discharge
Anticipated Discharge: 24 - 48 hours
Subjective/Interval History
-
Date of Service: October 13, 2023
Patient was seen and examined. Overnight she developed left lower leg pain near her surgical site further down the leg.
Objective Data
-
Labs:
Laboratory Results
10/13/23
04:15
WBC 10.3
Hgb 11.3 L
Hct 33.1 L
Plt Count 254
Sodium 136
Potassium 3.6
Chloride 99
Carbon Dioxide 28
BUN 13
Creatinine 0.6
Glucose 92
Calcium 9.0
Total Bilirubin 0.9
AST 19
ALT 16
Alkaline Phosphatase 94
Vital Signs:
Vital Signs
Temp Pulse Resp BP Pulse Ox
98.7 F 88 17 145/82 97
10/13/23 12:27 10/13/23 12:27 10/13/23 12:27 10/13/23 12:27 10/13/23 12:27
I&O
10/12/23 10/13/23 10/14/23
06:59 06:59 06:59
Intake Total 1730 / 1730
Output Total 4800 / 4800
Balance -3070 / -3070
--- NOTE | 2023-10-13 13:25 | W.PN.UPDATE ---
Update Note
Progress Note Update
Patient seen and examined. Patient reported that her pain had improved yesterday evening but overnight she felt sharp ripping pain in her calf and foot. She had difficulty ambulating with PT. Soft patient's not complaining really of any knee
pain. She reports that currently her pain has improved it is less severe than it was earlier today.
Examination reveals soft and compressible soft tissues about the calf and ankle, there is no bloody drainage on dressing, there is no significant excessive warmth over the knee, no erythematous skin changes, there is ecchymotic skin changes noted
thigh and calf however, there is some mild to moderate palpation over calf, no palpation over foot or ankle, no gross motor or sensory deficits distally
Previous lower extremity Doppler as well as CTA negative for pulmonary embolism. Radiographs obtained of the knee and ankle he will appropriate alignment of the total knee prosthesis without evidence of subsidence or periprosthetic lucency
68-year-old about 1 week status post left total knee arthroplasty with persistent left lower extremity pain and swelling. No evidence of DVT or PE based on studies. Pain has been intermittent and some activity related. I do think this is likely
related to swelling and postoperative pain. I would not recommend any further workup. Clinical examination is not consistent with infection. Would recommend pain control, mobilization with physical therapy and close outpatient follow-up with the
surgeon of record. I did notify Dr. Carvalho of her admission and he is aware of her care and will help arrange outpatient follow-up.
--- NOTE | 2023-10-13 16:10 | CM ---
Alert awake oriented patient who lives with her Dimas who lives in a 1 story home with 4 step to enter and bed and bathroom on first floor. She is assisted in all activities of daily living after her knee replacement last Thursday.She was
offered VN she requested VN S [place] TT request.On Oxygen at [facility].
[facility] VN hx / No SNF history
Pharmacy [facility] [place]
PCP DR Luly Holley
PLAN Home with [facility] for oxygen need.
[2023-10-13] MEDS: PEPCID 20 MG PO (20:55)
[2023-10-13] MEDS: ATIVAN 3 MG PO (20:55)
[2023-10-13] MEDS: CRESTOR 20 MG PO (20:55)
[2023-10-13] MEDS: TYLENOL 650 MG PO (22:09)
[2023-10-14] VITALS (8 sets, daily range): BP systolic 102–130; BP diastolic 55–73; PULSE 74; O2SAT 90–95; BMI 41.1
[2023-10-14] MEDS: DILAUDID 0.25 MG IV ×2 (01:15→05:46)
--- NOTE | 2023-10-14 02:58 | DOWNTIME ---
There was a [employer] Client [employer]ing [employer] Operator Downtime on 10/14/2023 from 0100 to 10/14/2023 at 0255. Downtime documentation of patient's care, including medication administrations, has been reconciled in the electronic record per guidelines. Refer to the
patient's paper chart under the miscellaneous tab to see printed paper medication records and downtime forms.
[2023-10-14] MEDS: ROXICODONE 10 MG PO ×4 (03:16→20:01)
[2023-10-14 07:26] LABS: Blood Urea Nitrogen 21 mg/dl (7-17); Calcium 9.2 mg/dl (8.4-10.2); Carbon Dioxide 29 mmol/L (22-30); Chloride 97 mmol/L (98-107); Estimated Creatinine Clearance 104 ml/min; Glucose 115 mg/dl (70-99); Potassium 3.3 mmol/L (3.5-5.1); Sodium 137 mmol/L (135-145); eGFR > 60.00
[2023-10-14 07:28] LABS: % Basophils 0.5 % (0-2); % Eosinophils 1.6 % (0-6); % Immature Granulocytes 0.9 % (0-0.5); % Lymphocytes 20.7 % (20.5-51.1); % Monocytes 12.2 % (1.7-9.3); % Neutrophils 64.1 % (42.2-75.2); Absolute Basophils 0.1 10^3/uL (0-0.2); Absolute Eosinophils 0.2 10^3/uL (0-0.7); Absolute Immature Granulocytes 0.1 10^3/uL (0-0.05); Absolute Lymphocytes 2.2 10^3/uL (1.2-3.4); Absolute Monocytes 1.3 10^3/uL (0.1-0.6); Absolute Neutrophils 6.7 10^3/uL (1.4-6.5); Hematocrit 36.8 % (37.0-47.0); Hemoglobin 12.4 g/dL (12.0-16.0); Mean Corp Hgb Conc. 33.7 g/dL (33.0-37.0); Mean Corpuscular Hgb 29.9 pg (27.0-31.0); Mean Corpuscular Volume 88.7 fL (81.0-99.0); Mean Platelet Volume 9.8 fL (7.4-10.4); Nucleated Red Blood Cells % 0 %; Platelet Count 279 10^3/uL (130-400); Red Blood Cell Count 4.15 10^6/uL (4.20-5.40); Red Cell Dist. Width 13.9 % (11.5-14.5); White Blood Cell Count 10.5 10^3/uL (4.8-10.8)
[2023-10-14] MEDS: PROTONIX 40 MG PO (08:53)
[2023-10-14] MEDS: CALAN EXTENDED RELEASE 120 MG PO (08:53)
[2023-10-14] MEDS: TAMBOCOR 100 MG PO ×2 (08:53→20:02)
[2023-10-14] MEDS: VITAMIN D3 (cholecalciferol) 50 MCG PO (08:53)
[2023-10-14] MEDS: REQUIP 2 MG PO (08:53)
[2023-10-14] MEDS: LASIX 40 MG PO (08:53)
[2023-10-14] MEDS: ZYLOPRIM 100 MG PO (08:54)
[2023-10-14] MEDS: MIRALAX 17 GRAMS PO (08:54)
[2023-10-14] MEDS: LOVENOX 40 MG SC ×2 (08:54→20:02)
[2023-10-14] MEDS: SENOKOT-S 1 TABLET PO ×2 (08:54→20:01)
[2023-10-14] MEDS: SINGULAIR 10 MG PO (08:54)
[2023-10-14] MEDS: ASPIR LOW (ENTERIC COATED) 81 MG PO (08:54)
[2023-10-14] MEDS: TYLENOL 650 MG PO ×2 (08:57→20:03)
[2023-10-14] MEDS: KCL 40 MEQ PO (08:58)
--- NOTE | 2023-10-14 10:50 | W.PN.CD ---
Addendum entered and electronically signed by Joshua Sotelo MD 10/14/23 11:28:
68 yo female with PMH of chronic HFPEF, SSS s/p PPM admitted with acute on chronic HFPEF in setting of lasix non-compliance. Improved s/p IV lasix. Exam with RRR, no murmurs, trace LE edema. Tele: SR 60s.
Continue lasix 40mg PO daily.
Please call us back with additional questions.
Original Note:
Today's Communication / Plan
-
- resumed on oral home Lasix.
-Euvolemic and stable from cardiac perspective
Impression / Plan
-
Background -
68-year-old female known to cardiology service in the past for extensive complicated cardiac history-paroxysmal A-fib s/p ablation x 3,SVT, paroxysmal A. tach, CHF, sick sinus syndrome s/p permanent cardiac pacemaker placement, pulmonary vein
stenosis, pulmonary hypertension, obstructive and restrictive lung disease, LILIA on CPAP, hemochromatosis, melanoma s/p excision and in remission, nephrolithiasis, hypertension, hyperlipidemia, morbid obesity with BMI 43 presents to the hospital with
left lower extremity edema and SOB. Cardiology consulted for acute decompensated heart failure.
Impression -
Dyspnea on exertion--
- Acute exacerbation of heart failure, acute on chronic, HFpEF on echocardiogram.
- Patient noncompliant with Lasix s/p surgery.
- IV lasix 40mg X day 3. Switch to oral Lasix. Patient is currently euvolemic.
- Salt and fluid restricted diet, monitor I's and O's, weights, renal function.
- Will evaluate patient for GDMT-SGLT2, BB, MRA, ARB after echo results.
-Currently off of oxygen.
Pedal edema-
-significantly improved from yesterday
-Peripheral vascular ultrasound negative for deep vein thrombosis.
-CT chest negative for pulmonary embolism.
Paroxysmal A. tach-
-Currently on flecainide and verapamil, well-controlled with antiarrhythmics.
Sick sinus syndrome-
-S/p permanent pacemaker placement-05/05/2022.
-Atrial paced rhythm noted on EKG.
Paroxysmal A-fib-
-No evidence of A-fib after cardiac ablation
-S/p cardiac ablation in January 2008, April 2009 and November 2009.
-Previously on warfarin anticoagulation and now off of anticoagulation.
Leukocytosis with neutrophilia-likely reactive to recent surgery.
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
LILIA on home CPAP.
Obstructive and restrictive lung disease
Systemic hypertension
Morbid obesity-BMI 43.
Subjective -
Patient feels a little better in terms of shortness of breath, reports that her leg still hurts.
Data reviewed -
Telesummary - 10/14/23 - Atrial paced sinus rhythm.
Echocardiogram-10/13/2023-LVEF 55 to 60%, mild AR.
EKG-10/12/2023-atrial paced sinus rhythm, right axis deviation.
Troponin, proBNP-10/12/2023-0.012, 281 respectively
Chest x-ray-10/12/2023-mild pulmonary vascular congestion.
Echocardiogram-06/12/2022-normal ventricular size, systolic function, resolved pericardial effusion when compared to 05/07/2022.
Cardiac catheterization-02/11/2021-
Severely elevated LVEDP, severely elevated post pulmonary to LV mean gradient, moderate to severely elevated pulmonary artery pressure WHO class II.
Physical Exam
Vital Signs/Labs
Vital Signs
Temp Pulse Resp BP Pulse Ox
98.2 F 78 28 130/55 92
10/14/23 07:25 10/14/23 08:53 10/14/23 07:25 10/14/23 08:53 10/14/23 07:25
10/13/23 10/14/23 10/15/23
06:59 06:59 06:59
Actual Weight 106.594 kg 105.324 kg
10/14/23 05:28
10/14/23 05:28
PT 14.0 Sec (11.4-14.6) 10/12/23 10:26
INR 1.09 10/12/23 10:26
APTT 29.7 Sec (23.4-35.0) 10/12/23 10:26
Magnesium 1.9 mg/dl (1.6-2.3) 10/13/23 04:15
Triglycerides 134 mg/dl (10-149) 10/13/23 04:15
LDL Cholesterol, Calc 51 mg/dl 10/13/23 04:15
VLDL Cholesterol, Calc 26 mg/dl (0-30) 10/13/23 04:15
HDL Cholesterol 61 mg/dl 10/13/23 04:15
10/12/23
10:26
Tgz-S-Osasilnpqby Pept 281
LAB Results
10/12/23
10:26
Troponin I < 0.012
Physical Exam
Constitutional: Comfortable (On room air.)
EENT: Moist mucous membranes
Cardiovascular: Pedal edema present, S1S2 is normal and Murmur/rub/gallop absent
Respiratory: Respiratory effort normal and Lungs clear to auscul.
GI: Soft, Distention absent and Normal bowel sounds
Neuro/Psych: AO x 3
Data Reviewed
-
Date of Service: October 14, 2023
--- NOTE | 2023-10-14 12:06 | RESPNOTE ---
Patient received on room air. Spo2 93-95% resting. Patient reports being unable to ambulate due to pain in left leg which is why she came in this admission. Lowest spo2 seen on RA is 90%. Patient able to shift herself in seat and while talking
maintained appropriate spo2.
--- NOTE | 2023-10-14 17:08 | W.PN.HOSP.TC ---
Today's Communication/Plan
-
PT/OT, placement
Assessment / Plan
Assessment / Plan
Physical Exam
General: Not in acute distress
HEENT: Normocephalic
Respiratory: Clear
Cardiac: S1/S2 and Regular Rhythm
GI: Soft, Non Tender, Non Distended and Normal Bowel Sounds
Musculoskeletal: No Cyanosis and Other (left Le edema with surgical dressing in place)
Skin: Warm. Dry.
Neuro: AO x 3 and Nonfocal/grossly intact
Psych: Calm
Assessment/Plan
#Acute hypoxic respiratory failure likely from pulmonary edema
-Patient requiring 2 L of oxygen
-BNP low but patient is morbidly obese
-Chest x-ray with mild pulmonary edema
-No DVT
-CTA chest with no PE
-Received a dose of Lasix in ER
-Continue supplemental oxygen to keep sat greater than 90
-Wean as tolerated.
-IV Lasix 40 mg BID was given --> transitioned to oral diuretics --> continue oral diuretics
-Check echocardiogram
-Pure Wick
-Strict I's and O's
-Daily weights
#recent left knee replacement (on October 07, 2023 as per patient)
-incision c/d/i
-orthopedic consulted (patient had surgery with Dr. Carvalho of [facility] at [facility])
-Continue Lovenox for DVT prophylaxis while inpatient, switch to Aspirin 81 mg BID DVT prophylaxis on discharge
-Pain is likely related to swelling and postoperative pain
-Continue pain control, mobilization with physical therapy and close outpatient follow-up with patient's surgeon Dr. Carvalho
#Constipation
-Last BM 4 to 5 days prior to admission then had a bowel movement on 10/13/23
-Continue bowel regimen
# Leukocytosis likely stress reaction
-WBCs 11.0
-Patient remained afebrile
-Urinalysis did not suggest a UTI
# Anemia likely postop
-Hemoglobin 11.0
-No active bleeding
-Continue to monitor
#Hypokalemia
-Potassium replaced; continue to monitor
#Paroxysmal atrial fibrillation
-treated with ablation x 3 in the past. Not on anticoagulation.
-Permanent pacemaker
-Flecainide continued
#COPD without exacerbation
-nebs from home continued
-Singulair continued
#LILIA -on CPAP at bedtime.
Chronic heart failure preserved EF -stable.
#CAD/[place] history
#Hemochromatosis
#GERD
-PPI continued
#Morbid obesity due to excess calories
#Full code
#DVT Prophylaxis: Lovenox and SCDs while inpatient, Aspirin 81 mg BID on discharge
Anticipated Discharge: 24 - 48 hours
Subjective/Interval History
-
Date of Service: October 14, 2023
Patient was seen and examined. She denied any new symptoms or complaints. She reported her left leg pain has improved significantly. She had a bowel movement in the past 24 hours.
Objective Data
-
Labs:
Laboratory Results
10/14/23
05:28
WBC 10.5
Hgb 12.4
Hct 36.8 L
Plt Count 279
Sodium 137
Potassium 3.3 L
Chloride 97 L
Carbon Dioxide 29
BUN 21 H
Creatinine 0.6
Glucose 115 H
Calcium 9.2
Vital Signs:
Vital Signs
Temp Pulse Resp BP Pulse Ox
98.8 F 78 22 118/63 93
10/14/23 15:28 10/14/23 15:28 10/14/23 15:28 10/14/23 15:28 10/14/23 15:28
I&O
10/13/23 10/14/23 10/15/23
06:59 06:59 06:59
Intake Total 1730 / 1730 480 / 480
Output Total 4800 / 4800
Balance -3070 / -3070 480 / 480
[2023-10-14] MEDS: ATIVAN 3 MG PO (21:25)
[2023-10-14] MEDS: PEPCID 20 MG PO (21:25)
[2023-10-14] MEDS: CRESTOR 20 MG PO (21:25)
[2023-10-15] MEDS: ROXICODONE 10 MG PO ×3 (00:22→10:13)
[2023-10-15 03:56] VITALS: BP 121/66
[2023-10-15 04:56] LABS: % Basophils 0.6 % (0-2); % Eosinophils 2.4 % (0-6); % Immature Granulocytes 0.8 % (0-0.5); % Lymphocytes 17.6 % (20.5-51.1); % Neutrophils 67.6 % (42.2-75.2); Absolute Basophils 0.1 10^3/uL (0-0.2); Absolute Eosinophils 0.3 10^3/uL (0-0.7); Absolute Immature Granulocytes 0.1 10^3/uL (0-0.05); Absolute Lymphocytes 1.9 10^3/uL (1.2-3.4); Absolute Monocytes 1.2 10^3/uL (0.1-0.6); Absolute Neutrophils 7.2 10^3/uL (1.4-6.5); Hematocrit 33.8 % (37.0-47.0); Hemoglobin 11.4 g/dL (12.0-16.0); Mean Corp Hgb Conc. 33.7 g/dL (33.0-37.0); Mean Corpuscular Volume 88.9 fL (81.0-99.0); Mean Platelet Volume 9.5 fL (7.4-10.4); Nucleated Red Blood Cells % 0 %; Platelet Count 279 10^3/uL (130-400); Red Cell Dist. Width 13.8 % (11.5-14.5); White Blood Cell Count 10.6 10^3/uL (4.8-10.8)
[2023-10-15 05:24] LABS: Blood Urea Nitrogen 21 mg/dl (7-17); Calcium 9.2 mg/dl (8.4-10.2); Carbon Dioxide 29 mmol/L (22-30); Chloride 100 mmol/L (98-107); Estimated Creatinine Clearance 104 ml/min; Glucose 104 mg/dl (70-99); Potassium 3.8 mmol/L (3.5-5.1); Sodium 137 mmol/L (135-145); eGFR > 60.00
[2023-10-15 07:35] VITALS: BP 101/52
[2023-10-15] MEDS: PROTONIX 40 MG PO (09:15)
[2023-10-15] MEDS: SINGULAIR 10 MG PO (09:16)
[2023-10-15] MEDS: CALAN EXTENDED RELEASE 120 MG PO (09:16)
[2023-10-15] MEDS: VITAMIN D3 (cholecalciferol) 50 MCG PO (09:16)
[2023-10-15] MEDS: TAMBOCOR 100 MG PO (09:16)
[2023-10-15] MEDS: LASIX 40 MG PO (09:16)
[2023-10-15] MEDS: REQUIP 2 MG PO (09:16)
[2023-10-15] MEDS: MIRALAX 17 GRAMS PO (09:17)
[2023-10-15] MEDS: ASPIR LOW (ENTERIC COATED) 81 MG PO (09:17)
[2023-10-15] MEDS: SENOKOT-S 1 TABLET PO (09:17)
[2023-10-15] MEDS: ZYLOPRIM 100 MG PO (09:17)
[2023-10-15] MEDS: LOVENOX 40 MG SC (10:13)
[2023-10-15 10:52] VITALS: BP 120/59
[2023-10-15 11:07] VITALS: BP 121/91; PULSE 75; O2SAT 95
--- NOTE | 2023-10-15 11:19 | W.PN.HOSP.TC ---
Today's Communication/Plan
-
Discharge today
Assessment / Plan
Assessment / Plan
Physical Exam
General: Not in acute distress
HEENT: Normocephalic
Respiratory: Clear
Cardiac: S1/S2 and Regular Rhythm
GI: Soft, Non Tender, Non Distended and Normal Bowel Sounds
Musculoskeletal: No Cyanosis and Other (left Le edema with surgical dressing in place)
Skin: Warm. Dry.
Neuro: AO x 3 and Nonfocal/grossly intact
Psych: Calm

ECHOCARDIOGRAM (as per fairing worker's report)
CONCLUSIONS
Techncally difficult.
Echo contrast used
Normal left ventricular systolic function.
LV ejection fraction is 55-60% .
Mild aortic regurgitation.
Compared to the previous echomild AR reported. Otherwise there is no
significant change.
Assessment/Plan
#Acute hypoxic respiratory failure likely from pulmonary edema and exacerbation of Heart Failure with Preserved Ejection Fraction
-Patient has been wearing oxygen at night here in the hospital because she has not been wearing CPAP here, as per patient and her nurse
-Check home oxygen assessment to make sure does not need home oxygen
-BNP low but patient is morbidly obese
-Chest x-ray with mild pulmonary edema
-No DVT
-CTA chest with no PE
-Received a dose of Lasix in ER
-Continue supplemental oxygen to keep sat greater than 90
-Wean as tolerated.
-IV Lasix 40 mg BID was given --> transitioned to oral diuretics --> continue oral diuretics
-Check echocardiogram
-Pure Wick
-Strict I's and O's
-Daily weights
#Recent left knee replacement (on October 07, 2023 as per patient)
-incision c/d/i
-orthopedic consulted (patient had surgery with Dr. Carvalho of [facility] at [facility])
-Continue Lovenox for DVT prophylaxis while inpatient, switch to Aspirin 81 mg BID DVT prophylaxis on discharge
-Pain (IMPROVED) is likely related to swelling and postoperative pain
-Patient is now able to place her left foot flat on the floor and ambulate household distances as well as 4 steps which she needs to do to get into her home
-Continue pain control, mobilization with physical therapy and close outpatient follow-up with patient's surgeon Dr. Carvalho by 10/16/23
#Constipation
-Last BM 4 to 5 days prior to admission but then had a bowel movement on 10/13/23
-Continue bowel regimen
# Leukocytosis likely stress reaction
-WBCs 11.0
-Patient remained afebrile
-Urinalysis did not suggest a UTI
# Anemia likely postop
-Hemoglobin 11.0
-No active bleeding
-Continue to monitor
#Hypokalemia
-Potassium replaced; continue to monitor
#Paroxysmal atrial fibrillation
#SSS s/p PPM
-treated with ablation x 3 in the past. Not on anticoagulation.
-Permanent pacemaker
-Flecainide continued
#COPD without exacerbation
-nebs from home continued
-Singulair continued
#LILIA -on CPAP at bedtime.
Chronic heart failure preserved EF -stable.
#CAD/[place] history
#Hemochromatosis
#GERD
-PPI continued
#Morbid obesity due to excess calories
#Thyroid Cyst and Thyroid Nodule
#Full code
#DVT Prophylaxis: Lovenox and SCDs while inpatient, Aspirin 81 mg BID on discharge
More than 30 minutes spent in discharge including
Final examination of the patient
Summarizing hospital stay
Instructions for continuing care to all relevant caregivers
Preparation of discharge records, prescriptions, and referral forms
Total time spent (in minutes): 45
Anticipated Discharge: Today
Subjective/Interval History
-
Date of Service: October 15, 2023
Patient was seen and examined. She reported that her left lower extremity pain was a lot better. She said she wants to go home today.
Objective Data
-
Labs:
Laboratory Results
10/15/23
04:29
WBC 10.6
Hgb 11.4 L
Hct 33.8 L
Plt Count 279
Sodium 137
Potassium 3.8
Chloride 100
Carbon Dioxide 29
BUN 21 H
Creatinine 0.5 L
Glucose 104 H
Calcium 9.2
Vital Signs:
Vital Signs
Temp Pulse Resp BP Pulse Ox
98.4 F 88 22 120/59 97
10/15/23 10:52 10/15/23 10:52 10/15/23 10:52 10/15/23 10:52 10/15/23 10:52
I&O
10/14/23 10/15/23 10/16/23
06:59 06:59 06:59
Intake Total 480 / 480 720 / 720
Balance 480 / 480 720 / 720
[2023-10-15 11:49] VITALS: O2SAT 91; O2SAT 94
--- NOTE | 2023-10-15 14:13 | W.DS.TRANS ---
DC Summary - Grain Manager
-
Discharge Instructions:
Discharge Diagnosis/Procedures #Acute hypoxic respiratory failure - RESOLVED -
likely from pulmonary edema and exacerbation of
Heart Failure with Preserved Ejection Fraction
#Recent left knee replacement (on October 07, 2023
as per patient, performed by Dr. Carvalho of
[facility])
#Constipation
#Leukocytosis likely stress reaction
#Anemia likely postop
#Hypokalemia
#Paroxysmal atrial fibrillation
#Sick Sinus Syndrome status post PPM pacemaker
#COPD without exacerbation
#LILIA - on CPAP at bedtime.
#Chronic heart failure preserved EF
#CAD/[place] history
#Hemochromatosis
#GERD
#Morbid obesity due to excess calories
#Thyroid Cyst and Thyroid Nodule
ECHOCARDIOGRAM (as per bridge builder's report)
CONCLUSIONS
Techncally difficult.
Echo contrast used
Normal left ventricular systolic function.
LV ejection fraction is 55-60% .
Mild aortic regurgitation.
Compared to the previous echomild AR reported.
Otherwise there is no
significant change.
Diet Low Cholesterol,Low Fat,Restrict fluids to 64 oz
,2 Gram Sodium
Activity Other activity
Additional Activity Follow weight-bearing instructions provided your
orthopedic surgeon, Dr. Carvalho
Driving Restrictions No driving
Other Services VN
Specialty Instructions Weigh Daily
Instructions: *CBC Heart Failure Instructions
Stand-Alone Forms:
Changes to Home Medications: Yes
Discharge Medications:
DC Medications w/original date entered in [employer]
aspirin 81 mg tablet,delayed release 81 mg PO BID Blood Clot Prevention/Tx 12/11/09
lorazepam 1 mg tablet 3 mg PO HS Mental Health/Anxiety 04/12/15
rosuvastatin 20 mg tablet 20 mg PO HS High Cholesterol 04/23/18
ascorbic acid (vitamin C) 1,000 mg tablet (Vitamin C) 1,000 mg PO DAILY Supplement 09/27/18
flecainide 100 mg tablet 100 mg PO BID Arrhythmia 09/27/18
montelukast 10 mg tablet 10 mg PO DAILY ASTHMA 09/27/18
ropinirole 2 mg tablet 2 mg PO HS Neurological Condition 09/27/18
cholecalciferol (vitamin D3) 50 mcg (2,000 unit) tablet 2,000 unit PO DAILY Supplement 11/23/19
allopurinol 100 mg tablet 100 mg PO DAILY Gout 03/15/21
albuterol sulfate 90 mcg/actuation aerosol inhaler (Ventolin HFA) 2 inh inhalation R Q4HPRN PRN sob 04/16/22
fluticasone furoate 100 mcg-vilanterol 25 mcg/dose inhalation powder (Breo Ellipta) 1 inh inhalation R DAILYPRN PRN SOB 04/16/22
famotidine 20 mg tablet 20 mg PO HS Gastrointestinal Issue 06/20/23
furosemide 40 mg tablet 40 mg PO DAILY Fluid Retention/Swelling 06/20/23
pantoprazole 40 mg tablet,delayed release 40 mg PO DAILY Gastrointestinal Issue 06/20/23
verapamil 120 mg tablet,extended release 120 mg PO DAILY Blood Pressure 06/20/23
lorazepam 2 mg tablet 2 mg PO DAILYPRN PRN anxiety 10/12/23
oxycodone 10 mg tablet 10 mg PO Q4HPRN PRN severe pain 10/12/23
polyethylene glycol 3350 17 gram oral powder packet (HealthyLax) 17 g PO DAILY #30 ea 10/15/23
sennosides 8.6 mg-docusate sodium 50 mg tablet (Stool Softener-Laxative) 1 tab PO BID #60 tabs 10/15/23
Home Medication Changes
HealthyLax and Sennosides-Docusate are new medications.
Pending Results: No
Total time spent discharging patient (in min): 45
--- NOTE | 2023-10-15 14:48 | CM ---
entered dc order.
Weaned to room air.
PT saw pt said [facility]N appropriate.
[facility] set up As per care port [facility] accepted.
IMM reviewed signed on chart.
Dimas her will drive her home and to ortho appt.
PLAN Home with [facility]
== END 2023-10-15 15:32 | disposition home health service (06) | DRG 291 ==
LOC: 4 EAST ACU 12:57
PROVIDERS: Registered Nurse; ADMITTING PHYSICIAN Hospitalist; CONSULT PHYSICIAN Internal Medicine; CONSULT PHYSICIAN Orthopaedic Surgery; EMERGENCY PHYSICIAN Student in an Organized Health Care Education/Training Program
DX: I11.0 Hypertensive heart disease with heart failure (principal); I50.33 Acute on chronic diastolic (congestive) heart failure; J96.01 Acute respiratory failure with hypoxia; Z68.41 Body mass index [BMI] 40.0-44.9, adult; E66.01 Morbid (severe) obesity due to excess calories
CPT/HCPCS: 71046; 71275; 73564; 73590; 73600; 80048; 80053; 80061; 81003; 82248; 83735; 83880; 84443; 84484; 85025; 85027; 85610; 85730; 93005; 93306; 93971; 94761; 96374; 97116; 97163; 97167; 97530; 99285; Q9950; Q9967

== ENCOUNTER → 2023-11-12 13:00 | Outpatient (REF) | payer MEDICARE, OTHER, SELFPAY ==
[2023-11-12 15:50] LABS: Chloride 100 mmol/L (98-107)
[2023-11-12 15:52] LABS: Blood Urea Nitrogen 32 mg/dl (7-17); Calcium 10.2 mg/dl (8.4-10.2); Carbon Dioxide 25 mmol/L (22-30); Glucose 95 mg/dl (70-99); Potassium 4.4 mmol/L (3.5-5.1); Sodium 139 mmol/L (135-145); eGFR > 60.00
== END ==
LOC: HWLAB 13:00
PROVIDERS: ATTENDING PHYSICIAN Internal Medicine Cardiovascular Disease; REFERRING PHYSICIAN Internal Medicine Cardiovascular Disease
DX: I50.32 Chronic diastolic (congestive) heart failure (principal)
CPT/HCPCS: 36415; 80048

== ENCOUNTER → 2023-11-25 13:45 | Outpatient (REF) | payer MEDICARE, OTHER, SELFPAY ==
[2023-11-25 16:01] LABS: Blood Urea Nitrogen 25 mg/dl (7-17); Calcium 9.7 mg/dl (8.4-10.2); Carbon Dioxide 29 mmol/L (22-30); Chloride 102 mmol/L (98-107); Glucose 92 mg/dl (70-99); Potassium 4.4 mmol/L (3.5-5.1); Sodium 143 mmol/L (135-145); eGFR > 60.00
== END ==
LOC: HWLAB 13:45
PROVIDERS: ATTENDING PHYSICIAN Internal Medicine Cardiovascular Disease; FAMILY PHYSICIAN Family Medicine; REFERRING PHYSICIAN Internal Medicine Cardiovascular Disease
DX: I50.32 Chronic diastolic (congestive) heart failure (principal)
CPT/HCPCS: 36415; 80048

== ENCOUNTER 2024-02-20 11:34 | Emergency (ER) | payer MEDICARE, OTHER, SELFPAY ==
[2024-02-20 11:38] VITALS: BP 118/74
--- NOTE | 2024-02-20 12:11 | ED.MUSCINJ ---
HPI-Injury
<Kourtney Encarnacion, ENGRAVER LETTERING - Last Filed: 02/22/24 16:50>
General
Chief Complaint: Fall
Source: patient
Exam Limitations: none
Time Seen by Provider: 02/20/24 11:57
Nursing documentation reviewed up to this point in time: agreed with
History of Present Illness-Injury
Initial Injury comments:
68-year-old female with a plethora of medical issues is here with right lower rib pain/upper abdominal pain after tripping and falling into her bottom bed board yesterday.
Denies feeling lightheaded or dizzy. Has been nauseous due to pain and vomited twice. Not anticoagulated
Past History
<Kourtney Encarnacion, ENGRAVER LETTERING - Last Filed: 02/22/24 16:50>
Past History
ED Past Medical History: Arrthythmia (Atrial fib, Ablation X3), CHF, COPD, GERD, Hypercholesterolemia, [place], Psychiatric (Anxiety) and Other (Sleep apnea, morbid obesity, hemochromatosis, Kidney stones)
ED Past Surgical History: Gynecological (D & C), Orthopedic and Other
Social History
Tobacco: Former smoker
Alcohol: None
Personal:
Living: with family
Employment: Not employed
Family History
Family History: CAD
Review of Systems
<Kourtney Encarnacion, ENGRAVER LETTERING - Last Filed: 02/22/24 16:50>
Review of Systems
Allergies reviewed?: Yes
All Other Systems: ROS reviewed and negative except as documented in HPI and ROS
Respiratory: Denies trouble breathing
Cardiac: Denies chest pain
ABD/GI: Reports abdominal pain (RUQ); Denies nausea or vomiting
: Denies dysuria, incontinence or difficulty voiding
Musculoskeletal: Reports other (pain right mid to lower ribs); Denies neck pain or back pain
Skin: Reports no symptoms
Neurological: Reports no symptoms
Phy Exam
<Kourtney Encarnacion, ENGRAVER LETTERING - Last Filed: 02/22/24 16:50>
Physical Exam
Physical Exam:
GENERAL: No acute distress. A&Ox3.
CONSTITUTIONAL: Afebrile.
EYES: PERRL, conjunctivae normal
Neck: Supple
ENMT: moist mucus membranes, Pharynx nl
RESPIRATORY: Regular respirations, nonlabored, lungs clear.
CARDIOVASCULAR: Regular rate and rhythm, no murmurs, no rubs.
GI: Soft, tender RUQ to deep palpation, normal BS
MUSCULOSKELETAL: Tender right lower anterior and lateral ribs. Moves with ease. Well perfused.
SKIN: Warm, dry, pink
PSYCH: Normal mood and affect. Well kept, interactive and appropriate
NEUROLOGIC: Awake, alert and oriented. No focal neurological deficits
Injury Course
<Kourtney Encarnacion, ENGRAVER LETTERING - Last Filed: 02/22/24 16:50>
Orders/Labs/Results
Orders:
Orders
02/20/24 12:10
Ketorolac [Toradol] 30 mg IM NOW STA
Ondansetron Orally Disint [Zofran Odt (Orally Disintegrating)] 4 mg PO NOW STA
Ribs, Right 3 View W/PA Chest [CR Ribs-right 3 Vw W/pa Chest*] Urgent
Comment:
Reason For Exam: fell, hit lower ant ribs on bedboard
02/20/24 13:50
HYDROmorphone [Dilaudid] 1 mg IV NOW STA
02/20/24 13:51
CT Chest/abd W Iv Cont Urgent
Comment:
Reason For Exam: trauma to R lower ribs/upper abdomen
02/20/24 13:54
Tramadol HCl [Ultram] 50 mg PO NOW STA
02/20/24 14:14
Complete Blood Count/With Diff Urgent
02/20/24 14:52
Comprehensive Metabolic Panel Urgent
Abnormal Lab Results
02/20/24 02/20/24
14:14 14:52
MCHC 32.9 L g/dL
(33.0-37.0)
RDW 14.8 H %
(11.5-14.5)
Abs Immat Gran (auto) 0.1 H 10^3/uL
(0-0.05)
Absolute Neuts (auto) 7.6 H 10^3/uL
(1.4-6.5)
Absolute Monos (auto) 0.8 H 10^3/uL
(0.1-0.6)
Lymphocytes % 15.1 L %
(20.5-51.1)
BUN 26 H mg/dl
(7-17)
02/20/24 14:14
02/20/24 14:52
<Mariluz Turner, - Last Filed: 02/20/24 17:14>
Orders/Labs/Results
Orders:
Orders
02/20/24 12:10
Ketorolac [Toradol] 30 mg IM NOW STA
Ondansetron Orally Disint [Zofran Odt (Orally Disintegrating)] 4 mg PO NOW STA
Ribs, Right 3 View W/PA Chest [CR Ribs-right 3 Vw W/pa Chest*] Urgent
Comment:
Reason For Exam: fell, hit lower ant ribs on bedboard
02/20/24 13:50
HYDROmorphone [Dilaudid] 1 mg IV NOW STA
02/20/24 13:51
CT Chest/abd W Iv Cont Urgent
Comment:
Reason For Exam: trauma to R lower ribs/upper abdomen
02/20/24 13:54
Tramadol HCl [Ultram] 50 mg PO NOW STA
02/20/24 14:14
Complete Blood Count/With Diff Urgent
02/20/24 14:52
Comprehensive Metabolic Panel Urgent
Abnormal Lab Results
02/20/24 02/20/24
14:14 14:52
MCHC 32.9 L g/dL
(33.0-37.0)
RDW 14.8 H %
(11.5-14.5)
Abs Immat Gran (auto) 0.1 H 10^3/uL
(0-0.05)
Absolute Neuts (auto) 7.6 H 10^3/uL
(1.4-6.5)
Absolute Monos (auto) 0.8 H 10^3/uL
(0.1-0.6)
Lymphocytes % 15.1 L %
(20.5-51.1)
BUN 26 H mg/dl
(7-17)
02/20/24 14:14
02/20/24 14:52
<Kourtney Encarnacion, ENGRAVER LETTERING - Last Filed: 02/22/24 16:50>
MDM/Problems Addressed
Differential Diagnosis Includes:
Rib fracture, pneumothorax, hemothorax
intra abdominal trauma, rib contusion
MDM/Problems Addressed:
68-year-old female with a plethora of medical issues is here with right lower rib pain/upper abdominal pain after tripping and falling into her bottom bed board yesterday.
Denies feeling lightheaded or dizzy. Has been nauseous due to pain and vomited twice
VSS
Pt a large woman, could be significant impact, pain in R lower ribs and RUQ is significant. CXR shows nothing acute.
Will obtain CT chest and abdomen
States Toradol did nothing to help the pain.
She takes Oxycodone for chronic pain. She has to drive home so she does not want anything stronger than Tramadol (which has been ordered)
Case discussed with Dr. Turner who examined pt.
CBC with no clinically significant abnormality
CMP with no clinically significant abnormality
Chronic conditions affecting care: COPD and Other
<Kourtney V. Day, ENGRAVER LETTERING - Last Filed: 02/22/24 16:50>
*Critical Care Note
Total Time (30-74mins, 75-104mins- exclusive of procedures): Not Applicable
ED Attending Note
<Kourtney Encarnacion, ENGRAVER LETTERING - Last Filed: 02/22/24 16:50>
-
Portions of this chart may have been created with voice recognition software.� Occasional wrong word or��sound alike� substitutions may have occurred due to the inherent limitations of voice recognition software.
<Mariluz Turner DO - Last Filed: 02/20/24 17:14>
ED Attending Note
Patient seen and examined by attending physician: Yes
I performed the substantive portion of visit, reviewed & personally made and approve the management plan that is documented in note by myself or BRANDY.: Yes
I performed a history and physical exam of patient and discussed management with resident, I reviewed resident's note and agree with documented findings and plan of care.: Yes
ED Attending Note:
Patient seen and evaluated bedside, 68-year-old female presenting to the emergency department for right-sided lower rib and upper abdominal pain. Patient reports that she tripped and fell into her bed yesterday, onto her lower rib region. She has
since had intense pain. She notes vomiting from the pain. Denies head injury, is not on anticoagulation. Denies difficulty breathing. Vital signs are normal.
On exam, patient is resting comfortably, no acute distress, however does appear slightly uncomfortable secondary to pain. Patient seen and examined by BRANDY prior to my assessment, had x-ray imaging of the ribs with report of pain to the right lower
limbs. No obvious fracture. On my exam, tender to the anterior and mid axillary inferior rib angles on the right side. No crepitus. No respiratory distress. Tenderness additionally to the right upper quadrant of the abdomen. Given abdominal
component and negative x-ray imaging, will plan for CT imaging of the abdomen and pelvis to ensure no acute intra-abdominal pathology. Will control patient's pain.
17:15 -CT without evidence of acute traumatic injury. At this time feel stable for discharge. Will provide incentive spirometry for suspected rib contusion. Patient requesting tramadol for pain. Will prescribe, however cautioned against
somnolence. Return precautions discussed and patient verbalized understanding
Discharge Plan
Departure
Patient Disposition: Home (Routine Discharge)
Date of Disposition: 02/20/24
Time of Disposition: 17:14
Patient with high blood pressure during this ER visit?: No
Condition: Good
Discharge Problem:
Contusion of rib on right side
Instructions: Bruised Rib (DC)
Prescriptions:
No Action
aspirin 81 MG tablet,delayed release (DR/EC)
81 mg PO BID
lorazepam 1 MG tablet
3 mg PO HS
rosuvastatin 20 MG tablet
20 mg PO HS
ascorbic acid (vitamin C) [Vitamin C] 1,000 MG tablet
1,000 mg PO DAILY
ropinirole 2 MG tablet
2 mg PO HS
flecainide 100 MG tablet
100 mg PO BID
montelukast 10 MG tablet
10 mg PO DAILY
cholecalciferol (vitamin D3) 2,000 UNIT tablet
2,000 unit PO DAILY
allopurinol 100 MG tablet
100 mg PO DAILY
albuterol sulfate [Ventolin HFA] 90 mcg/actuation Hfa Aerosol Inhaler
2 inh INHALATION R Q4HPRN PRN (Reason: sob)
fluticasone furoate-vilanterol [Breo Ellipta] 100-25 mcg/dose Blister With Device
1 inh INHALATION R DAILYPRN PRN (Reason: SOB)
furosemide 40 MG tablet
40 mg PO DAILY
famotidine 20 MG tablet
20 mg PO HS
verapamil 120 MG tablet extended release
120 mg PO DAILY
pantoprazole 40 MG tablet,delayed release (DR/EC)
40 mg PO DAILY
lorazepam 2 mg Tablet
2 mg PO DAILYPRN PRN (Reason: anxiety)
Patient Comments:
patient currently filling the 1mg and 2mg
oxycodone 10 mg Tablet
10 mg PO Q4HPRN PRN (Reason: severe pain)
acetaminophen [Tylenol] 325 mg Tablet
650 mg PO BIDPRN PRN (Reason: mild pain)
spironolactone 25 mg Tablet
25 mg PO DAILY
polyethylene glycol 3350 [HealthyLax] 17 gram powder in packet
17 g PO DAILYPRN PRN (Reason: constipation)
sennosides-docusate sodium [Stool Softener-Laxative] 8.6-50 mg tablet
2 tab PO HS
Referrals:
Luly Floyd MD [Family Provider] -
Activity Restrictions/Additional Instructions:
You were seen in the emergency department for rib pain after a fall
You were found to have a normal CAT scan of your chest and abdomen without obvious fracture or intra-abdominal injury. You are suspected to have a rib contusion. Please take Tylenol as needed for pain. You were also prescribed tramadol. Please
take as directed and do not drive while taking this medication.
Please follow-up closely with your primary care physician.
Return to the emergency department for any worsening of your symptoms, or any development of chest pain, difficulty breathing, abdominal pain with persistent vomiting and inability to tolerate food or liquid by mouth (concern for dehydration),
weakness, headache or confusion, fever greater than 100.4, or any additional symptoms that are concerning to you.
Thank you for choosing [facility].
Interventions
Interventions:
*Risk Screen - Suicide Last Done: 02/20/24 11:38
*General Assessment Last Done: 02/20/24 11:38
*Neglect/Abuse Screening Last Done: 02/20/24 11:38
*Nursing Disposition Last Done: 02/20/24 17:36
ED-Musculoskeletal Assessment Last Done: 02/20/24 11:54
ED- Neurological Assessment Last Done: 02/20/24 11:54
ED-Skin Assessment Last Done: 02/20/24 11:54
Discharge Date and Time
Discharge Date/Time: 02/20/24 17:37
Print Language: SINHALA
[2024-02-20] MEDS: TORADOL 30 MG IM (12:20)
[2024-02-20] MEDS: ZOFRAN ODT (ORALLY DISINTEGRATING) 4 MG PO (12:20)
[2024-02-20 12:22] VITALS: BMI 39.1
[2024-02-20] MEDS: ULTRAM 50 MG PO (14:07)
[2024-02-20 14:23] LABS: % Basophils 0.7 % (0-2); % Immature Granulocytes 0.5 % (0-0.5); % Lymphocytes 15.1 % (20.5-51.1); % Monocytes 7.6 % (1.7-9.3); % Neutrophils 74.1 % (42.2-75.2); Absolute Basophils 0.1 10^3/uL (0-0.2); Absolute Eosinophils 0.2 10^3/uL (0-0.7); Absolute Immature Granulocytes 0.1 10^3/uL (0-0.05); Absolute Lymphocytes 1.6 10^3/uL (1.2-3.4); Absolute Monocytes 0.8 10^3/uL (0.1-0.6); Absolute Neutrophils 7.6 10^3/uL (1.4-6.5); Hematocrit 43.2 % (37.0-47.0); Hemoglobin 14.2 g/dL (12.0-16.0); Mean Corp Hgb Conc. 32.9 g/dL (33.0-37.0); Mean Corpuscular Hgb 30.5 pg (27.0-31.0); Mean Corpuscular Volume 92.7 fL (81.0-99.0); Mean Platelet Volume 9.6 fL (7.4-10.4); Nucleated Red Blood Cells % 0 %; Platelet Count 259 10^3/uL (130-400); Red Blood Cell Count 4.66 10^6/uL (4.20-5.40); Red Cell Dist. Width 14.8 % (11.5-14.5); White Blood Cell Count 10.3 10^3/uL (4.8-10.8)
[2024-02-20 15:09] VITALS: BP 120/74
[2024-02-20 15:14] LABS: ALT (SGPT) 21 U/L (0-35); AST (SGOT) 21 U/L (14-36); Albumin 4.3 g/dl (3.5-5.0); Alkaline Phosphatase 86 U/L (38-126); Blood Urea Nitrogen 26 mg/dl (7-17); Calcium 9.4 mg/dl (8.4-10.2); Carbon Dioxide 28 mmol/L (22-30); Chloride 104 mmol/L (98-107); Estimated Creatinine Clearance 93 ml/min; Glucose 93 mg/dl (70-99); Potassium 4.5 mmol/L (3.5-5.1); Sodium 142 mmol/L (135-145); Total Bilirubin 0.5 mg/dl (0.2-1.3); Total Protein 6.8 g/dl (6.3-8.2); eGFR > 60.00
[2024-02-20 16:45] VITALS: BP 104/55
[2024-02-20 16:49] VITALS: BP 131/75
== END 2024-02-20 17:37 | disposition home or self-care (01) ==
LOC: EMR 11:34
PROVIDERS: Registered Nurse; EMERGENCY PHYSICIAN Student in an Organized Health Care Education/Training Program; FAMILY PHYSICIAN Family Medicine
DX: S20.211A Contusion of right front wall of thorax, initial encounter (principal); W01.190A Fall on same level from slipping, tripping and stumbling with subsequent striking against furniture, initial encounter; I48.91 Unspecified atrial fibrillation; E66.01 Morbid (severe) obesity due to excess calories; E78.00 Pure hypercholesterolemia, unspecified; F41.9 Anxiety disorder, unspecified; G47.30 Sleep apnea, unspecified; I50.9 Heart failure, unspecified; J44.9 Chronic obstructive pulmonary disease, unspecified; K21.9 Gastro-esophageal reflux disease without esophagitis; Z82.49 Family history of ischemic heart disease and other diseases of the circulatory system; Z87.442 Personal history of urinary calculi; Z87.891 Personal history of nicotine dependence
CPT/HCPCS: 99284; 96374; 96372; 71101; 71260; 74160; 80053; 85025; Q9967

== ENCOUNTER 2024-02-22 10:16 | Inpatient (IN) | payer MEDICARE, OTHER, SELFPAY ==
[2024-02-22] VITALS (11 sets, daily range): BP systolic 104–155; BP diastolic 52–85; PULSE 81; BMI 40.6; BMI 39.9
--- NOTE | 2024-02-22 06:26 | ED.GENMED ---
History of Present Illness
General
Chief Complaint: Breathing Problem
Time Seen by Provider: 02/22/24 06:17
History of Present Illness
History of Present Illness:
TIME OF INITIAL ENCOUNTER: 6:20 AM
HPI: The patient presents due to a general unwell feeling including some shortness of breath, nausea, and congestion. She was seen here in the emergency department 3 days ago. She reports history of COPD and CHF. EMS was called this morning and
she was found to have room air sats of 84%. Upon arrival here her room air sats are 88%. She had a left knee replacement a few months ago. She says that she has been walking well since the procedure.
EXAM:
GENERAL: Appears to be in mild to moderate distress
HEENT: Moist oral mucosa
CARDIOVASCULAR: No murmurs, normal heart rate, regular rhythm, No chest wall tenderness
PULMONARY: Mild respiratory distress, breath sounds are somewhat equally decreased
ABDOMEN: Soft with no peritoneal signs, no tenderness
NEUROLOGIC: Excellent strength all extremities, no coordination deficits
PSYCHIATRIC: Appropriate mental status, normal insight and judgement
EXTREMITIES: Nontender, no edema, moves all extremities equally
SKIN: No rash, no lesions
NUMBER AND COMPLEXITY OF PROBLEMS ADDRESSED AT THE ENCOUNTER
� Chronic conditions affecting care: CHF, COPD
� Acute Exacerbation and/or Progression of Chronic Illness: This is an acute problem
� Differential Diagnosis includes: CHF exacerbation, COPD exacerbation, bronchitis, chest wall contusion
AMOUNT AND/OR COMPLEXITY OF DATA TO BE REVIEWED AND ANALYZED
� I performed an independent evaluation of and my interpretation is:
EKG: A paced 73, anterior T wave abnormality similar to 06/23/2023
CT:
X-rays: Chest x-ray suggest low lung volumes
Laboratory Studies: White count 11.2, hemoglobin 14.2, BNP 374, troponin 0.019, BNP 374, D-dimer 0.46
Other:
� Review of other/old records: I reviewed records. CT of the chest, abdomen, and pelvis with IV contrast showed no evidence of acute trauma but hypoventilatory changes/atelectasis were noted in the dependent portions. She had a
CTA of the chest in September of this year which was negative for PE.
� Clinical information was obtained by an independent historian: EMS
� Prescriptions/Medications Considered but not given:
� Further testing considered but not performed: Considered CTA to rule out PE however the D-dimer was reassuring
RISK OF COMPLICATIONS AND/OR MORBIDITY OR MORTALITY OF PATIENT MANAGEMENT
� Social determinants of health affecting care: Lives at home
� Discussion with other providers:
� Escalation of care including admission/observation vs risk of discharge considered: The patient was hypoxic for EMS and also hypoxic at 88% on room air here. She was placed on supplemental nasal cannula oxygen and was given a
DuoNeb. She was recently here and there was no sign of rib fracture on CT imaging from a few days ago.
ANY OTHER UPDATES:
7:10 AM: Will add steroids for possible COPD exacerbation in addition to the DuoNeb
9:20 AM: I reassessed patient. Minimal if any improvement after the DuoNeb. Given the hypoxia, will plan on keeping the patient in the hospital for possibility of COPD exacerbation. No evidence for PE or heart failure exacerbation. Notified
hospitalist for admission
Past History
Past History
ED Past Medical History: Arrthythmia (Atrial fib, Ablation X3), CHF, COPD, GERD, Hypercholesterolemia, [place], Psychiatric (Anxiety) and Other (Sleep apnea, morbid obesity, hemochromatosis, Kidney stones)
ED Past Surgical History: Gynecological (D & C), Orthopedic and Other
Social History
Tobacco: Former smoker
Alcohol: None
Personal:
Living: with family
Employment: Not employed
Family History
Family History: CAD
Phy Exam
Physical Exam
Physical Exam:
See HPI
Scores
Heart Failure Risk
Heart Failure Risk Score: Not Applicable
Course
Orders/Labs/Results
Orders:
Orders
11/25/24 06:14
Cardiac Monitoring- Treatment ONCE
Chest [CR Chest - 2 Views ] Urgent
Comment:
Reason For Exam: sob
02/22/24 06:19
CMP [Comprehensive Metabolic Panel] Urgent
Complete Blood Count/With Diff Urgent
02/22/24 06:23
Electrocardiogram (*1) Urgent
Reason for Study: Shortness of Breath
EKG- Treatment ONCE
02/22/24 06:24
Ipratropium/Albuterol Sulfate [Duoneb] 3 ml INH R NOW ONE
02/22/24 06:25
Ondansetron Injectable [Zofran] 4 mg IV NOW STA
02/22/24 06:26
D-Dimer Urgent
Pro-BNP [NT-proBNP] Urgent
Troponin I Urgent
02/22/24 07:03
MethylPREDNISolone PF [Solu-Medrol Pf] 125 mg IV NOW STA
02/22/24 07:21
Acetaminophen [Tylenol] 1,000 mg PO NOW STA
Abnormal Lab Results
02/22/24
06:19
WBC 11.2 H 10^3/uL
(4.8-10.8)
MCHC 32.5 L g/dL
(33.0-37.0)
RDW 14.6 H %
(11.5-14.5)
Abs Immat Gran (auto) 0.1 H 10^3/uL
(0-0.05)
Absolute Neuts (auto) 8.0 H 10^3/uL
(1.4-6.5)
Absolute Monos (auto) 0.9 H 10^3/uL
(0.1-0.6)
Immature Gran % 0.6 H %
(0-0.5)
Lymphocytes % 17.1 L %
(20.5-51.1)
BUN 27 H mg/dl
(7-17)
Glucose 112 H mg/dl
(70-99)
02/22/24 06:19
02/22/24 06:19
Vital Signs
Initial and Last Documented VS:
Initial Vital Signs
Pulse Ox
93
02/22/24 06:11
Last Documented Vital Signs
Temp Pulse Resp BP Pulse Ox
37.7 C 74 22 124/52 93
02/22/24 06:15 02/22/24 09:00 02/22/24 09:00 02/22/24 09:00 02/22/24 09:00
*Critical Care Note
Total Time (30-74mins, 75-104mins- exclusive of procedures): Not Applicable
ED Attending Note
-
Portions of this chart may have been created with voice recognition software.� Occasional wrong word or��sound alike� substitutions may have occurred due to the inherent limitations of voice recognition software.
Discharge Plan
Departure
Patient Disposition: Admit
Date of Disposition: 02/22/24
Time of Disposition: 09:22
Presentation/result/management discussed w/ accepting MD/DO: Hospitalist
Discharge Problem:
Acute exacerbation of chronic obstructive pulmonary disease (COPD)
Prescriptions:
No Action
aspirin 81 MG tablet,delayed release (DR/EC)
81 mg PO BID
lorazepam 1 MG tablet
3 mg PO HS
rosuvastatin 20 MG tablet
20 mg PO HS
ascorbic acid (vitamin C) [Vitamin C] 1,000 MG tablet
1,000 mg PO DAILY
ropinirole 2 MG tablet
2 mg PO HS
flecainide 100 MG tablet
100 mg PO BID
montelukast 10 MG tablet
10 mg PO DAILY
cholecalciferol (vitamin D3) 2,000 UNIT tablet
2,000 unit PO DAILY
allopurinol 100 MG tablet
100 mg PO DAILY
albuterol sulfate [Ventolin HFA] 90 mcg/actuation Hfa Aerosol Inhaler
2 inh INHALATION R Q4HPRN PRN (Reason: sob)
fluticasone furoate-vilanterol [Breo Ellipta] 100-25 mcg/dose Blister With Device
1 inh INHALATION R DAILYPRN PRN (Reason: SOB)
furosemide 40 MG tablet
40 mg PO DAILY
famotidine 20 MG tablet
20 mg PO HS
verapamil 120 MG tablet extended release
120 mg PO DAILY
pantoprazole 40 MG tablet,delayed release (DR/EC)
40 mg PO DAILY
lorazepam 2 mg Tablet
2 mg PO DAILYPRN PRN (Reason: anxiety)
Patient Comments:
patient currently filling the 1mg and 2mg
oxycodone 10 mg Tablet
10 mg PO Q4HPRN PRN (Reason: severe pain)
acetaminophen [Tylenol] 325 mg Tablet
650 mg PO BIDPRN PRN (Reason: mild pain)
spironolactone 25 mg Tablet
25 mg PO DAILY
polyethylene glycol 3350 [HealthyLax] 17 gram powder in packet
17 g PO DAILYPRN PRN (Reason: constipation)
sennosides-docusate sodium [Stool Softener-Laxative] 8.6-50 mg tablet
2 tab PO HS
Referrals:
Luly Floyd MD [Family Provider] -
Interventions
Interventions:
*Risk Screen - Suicide Last Done: 02/22/24 06:15
*General Assessment Last Done: 02/22/24 06:15
*Neglect/Abuse Screening Last Done: 02/22/24 06:15
ED- Fall Risk Assessment Last Done: 02/22/24 07:07
*ED COVID-19 Vaccine History Last Done: 02/22/24 06:15
ED- Cardiac Assessment Last Done: 02/22/24 07:07
ED- Pulmonary Assessment Last Done: 02/22/24 07:07
Discharge Date and Time
Print Language: MOROCCAN
[2024-02-22] MEDS: DUONEB 3 ML INH (06:32)
[2024-02-22] MEDS: ZOFRAN 4 MG IV (06:32)
[2024-02-22 06:47] LABS: % Basophils 0.6 % (0-2); % Eosinophils 2.5 % (0-6); % Immature Granulocytes 0.6 % (0-0.5); % Lymphocytes 17.1 % (20.5-51.1); % Monocytes 7.7 % (1.7-9.3); % Neutrophils 71.5 % (42.2-75.2); Absolute Basophils 0.1 10^3/uL (0-0.2); Absolute Eosinophils 0.3 10^3/uL (0-0.7); Absolute Immature Granulocytes 0.1 10^3/uL (0-0.05); Absolute Lymphocytes 1.9 10^3/uL (1.2-3.4); Absolute Monocytes 0.9 10^3/uL (0.1-0.6); Hematocrit 43.7 % (37.0-47.0); Hemoglobin 14.2 g/dL (12.0-16.0); Mean Corp Hgb Conc. 32.5 g/dL (33.0-37.0); Mean Corpuscular Hgb 30.4 pg (27.0-31.0); Mean Corpuscular Volume 93.6 fL (81.0-99.0); Mean Platelet Volume 9.5 fL (7.4-10.4); Nucleated Red Blood Cells % 0 %; Platelet Count 268 10^3/uL (130-400); Red Blood Cell Count 4.67 10^6/uL (4.20-5.40); Red Cell Dist. Width 14.6 % (11.5-14.5); White Blood Cell Count 11.2 10^3/uL (4.8-10.8)
[2024-02-22 07:02] LABS: ALT (SGPT) 21 U/L (0-35); AST (SGOT) 22 U/L (14-36); Albumin 4.5 g/dl (3.5-5.0); Alkaline Phosphatase 91 U/L (38-126); Blood Urea Nitrogen 27 mg/dl (7-17); Calcium 9.1 mg/dl (8.4-10.2); Carbon Dioxide 28 mmol/L (22-30); Chloride 103 mmol/L (98-107); Estimated Creatinine Clearance 89 ml/min; Glucose 112 mg/dl (70-99); Potassium 4.5 mmol/L (3.5-5.1); Sodium 142 mmol/L (135-145); Total Bilirubin 0.3 mg/dl (0.2-1.3); Total Protein 6.9 g/dl (6.3-8.2); eGFR > 60.00
[2024-02-22 07:14] LABS: NT-proBNP 374 pg/ml; Troponin I 0.019 ng/ml
[2024-02-22] MEDS: SOLU-MEDROL PF 125 MG IV (07:16)
[2024-02-22] MEDS: TYLENOL 1000 MG PO (07:31)
[2024-02-22 07:57] LABS: D-Dimer 0.46 ug/mlFEU (0.00-0.50)
--- NOTE | 2024-02-22 10:14 | HPS.HSE ---
Family Physician
-
Family Physician: Luly Floyd
Chief Complaint
-
Shortness of breath
History of Present Illness
Patient is a 68-year-old female with history of paroxysmal atrial fibrillation, COPD, obstructive sleep apnea, coronary artery disease, chronic CHF preserved EF who presents to the emergency room today with acute onset of shortness of breath.
Patient was found to be hypoxic with pulse ox of 84% on room air. Patient complains of congestion, dry cough 4 days. She has been on oral antibiotics by primary physician with no significant improvement. She presented to the emergency room 2 days
prior after fall and complains of a right-sided lower chest and right upper quadrant pain. At that time evaluation including CT scan of the chest abdomen pelvis were negative for trauma. Patient was not hypoxic and discharge from emergency room in
stable condition. She woke up today with acute shortness of breath.
On presentation to the emergency room patient is hemodynamically stable. She was found with pulse ox of 88%. She was placed on nasal cannula oxygen with improvement oxygenation up to 92%. Patient was treated with nebulizers and given
corticosteroids with some improvement.
Medical History
Past Medical History
Past Medical History: Reports Arrhythmia (Paroxysmal A-fib status post ablation), CAD, CHF and COPD
Past Surgical History: Reports Urological
Social History
Tobacco: Non-smoker
Alcohol: None
Drug: None
Personal:
Living: With Family
Family History
Family History: Not pertinent
Allergies / Home Medications
Allergies reflects when Allergies were last updated in [employer].
Home Medications with original date entered in [employer]
Allergy/Medication List:
Allergies
Allergy/AdvReac Type Severity Reaction Status Date / Time
hydrocodone [From Vicodin] Allergy Itching-can Verified 02/22/24 06:19
take 1/2
tablet
Home Medications
aspirin 81 mg tablet,delayed release 81 mg PO BID Blood Clot Prevention/Tx 12/11/09
lorazepam 1 mg tablet 3 mg PO HS Mental Health/Anxiety 04/12/15
rosuvastatin 20 mg tablet 20 mg PO HS High Cholesterol 04/23/18
ascorbic acid (vitamin C) 1,000 mg tablet (Vitamin C) 1,000 mg PO DAILY Supplement 09/27/18
flecainide 100 mg tablet 100 mg PO BID Arrhythmia 09/27/18
montelukast 10 mg tablet 10 mg PO DAILY ASTHMA 09/27/18
ropinirole 2 mg tablet 2 mg PO HS Neurological Condition 09/27/18
cholecalciferol (vitamin D3) 50 mcg (2,000 unit) tablet 2,000 unit PO DAILY Supplement 11/23/19
allopurinol 100 mg tablet 100 mg PO DAILY Gout 03/15/21
albuterol sulfate 90 mcg/actuation aerosol inhaler (Ventolin HFA) 2 inh inhalation R Q4HPRN PRN sob 04/16/22
fluticasone furoate 100 mcg-vilanterol 25 mcg/dose inhalation powder (Breo Ellipta) 1 inh inhalation R DAILYPRN PRN SOB 04/16/22
famotidine 20 mg tablet 20 mg PO HS Gastrointestinal Issue 06/20/23
furosemide 40 mg tablet 40 mg PO DAILY Fluid Retention/Swelling 06/20/23
pantoprazole 40 mg tablet,delayed release 40 mg PO DAILY Gastrointestinal Issue 06/20/23
verapamil 120 mg tablet,extended release 120 mg PO DAILY Blood Pressure 06/20/23
lorazepam 2 mg tablet 2 mg PO DAILYPRN PRN anxiety 10/12/23
oxycodone 10 mg tablet 10 mg PO Q4HPRN PRN severe pain 10/12/23
acetaminophen 325 mg tablet (Tylenol) 650 mg PO BIDPRN PRN mild pain 02/22/24
polyethylene glycol 3350 17 gram oral powder packet (HealthyLax) 17 g PO DAILYPRN PRN constipation 02/22/24
sennosides 8.6 mg-docusate sodium 50 mg tablet (Stool Softener-Laxative) 2 tab PO HS 02/22/24
spironolactone 25 mg tablet 25 mg PO DAILY 02/22/24
Review of Systems
-
A 12 point ROS was completed and negative except as noted: Yes
Respiratory: Reports See HPI
Cardiac: Reports See HPI
Physical Exam
Vital Signs
Vital Signs
Temp Pulse Resp BP Pulse Ox
99.8 F 74 22 124/52 93
02/22/24 06:15 02/22/24 09:00 02/22/24 09:00 02/22/24 09:00 02/22/24 09:00
Physical Exam
General: Well Developed, Well Nourished and No Apparent Distress
HEENT: NormoCephalic, Moist mucous membranes and Atraumatic
Respiratory: Clear
Cardiac: S1/S2 and Regular Rhythm; No Murmur or Rub
GI: Soft, Non Tender, Non Distended and Normal Bowel Sounds; No Organomegaly
Rectal: Deferred by Provider
Musculoskeletal: No Clubbing, No Cyanosis and No Edema
Skin: No Rash
Neuro: Nonfocal/grossly intact
Laboratory Results
-
02/22/24 06:19
02/22/24 06:19
Laboratory Results
Total Bilirubin 0.3 mg/dl (0.2-1.3) 02/22/24 06:19
AST 22 U/L (14-36) 02/22/24 06:19
ALT 21 U/L (0-35) 02/22/24 06:19
Alkaline Phosphatase 91 U/L (38-126) 02/22/24 06:19
Troponin I 0.019 ng/ml 02/22/24 06:26
Impression/Plan
-
IMPRESSION:
Acute hypoxic respiratory failure.
Other conditions:
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
Sick sinus syndrome with permanent pacemaker
Chronic CHF preserved EF
CAD with history of TX
CVA by history
COPD.
Obstructive sleep apnea with nightly CPAP
Morbid obesity with BMI of 40
Hemochromatosis
GERD
Nephrolithiasis complicated with obstructive uropathy and gram-negative sepsis.
Anxiety requiring benzodiazepines
Chronic pain requiring opiates use
PLAN:
Acute hypoxic respiratory failure.
Patient with rather acute onset of shortness of breath and hypoxia with pulse ox 84% on the field.
Differential diagnosis: Acute bronchitis/community-acquired pneumonia, atelectasis (with recent fall and right sided chest/rib contusion), PE, CHF decompensation, COPD exacerbation with possible hypercarbia
No evidence for distress.
Physical exam with decreased lung gracia bilaterally and very mild scattered wheezing
Trace of peripheral edema
Chest x-ray with decreased lung gracia with no significant infiltrative pleural effusion could not explain degree of hypoxia.
Very mildly elevated over baseline pro CHF BNP.
D-dimer within normal limits.
ECG normal sinus rhythm at 70s without ischemia.
Recent CT chest abdomen pelvis 02/19 reviewed with no evidence of trauma or other abnormalities.
Degree of hypoxia could not be explained with today's findings.
Check CT of the chest PE protocol.
Telemetry monitoring
IV Lasix 40 mg daily to be provided with monitoring of response and volume status
Check ABG for CO2 retention
Continue Decadron. Initiate insulin sliding scale with serial Accu-Cheks
Start doxycycline
Continue DuoNebs
Continue Breo Ellipta, montelukast
Chronic CHF preserved EF
Follow response to IV Lasix.
On furosemide/spironolactone TANK CARPENTER
COPD
Obstructive sleep apnea.
TANK CARPENTER regimen: Breo elliptica, montelukast, albuterol HFA.
Continue CPAP at night
CAD with history of TX.
Hypertension
Continue verapamil, statin, aspirin
Paroxysmal atrial fibrillation status post ablation
Continue flecainide
Patient is not on anticoagulation prior to admission
Obesity due to excessive calories.
Check hemoglobin A1c
Anxiety
Continue preadmission regimen with benzodiazepines. Monitor for sedation.
Continue ropinirole
DVT prophylaxis: Lovenox
Full code
[2024-02-22 10:30] LABS: B.E. 2.5 mmol/L; HCO3 27.9 mmol/L (21-28); O2 Saturation % 97.6 % (94-98); PCO2 45 mmHg (32-35); PO2 117 mmHg (83-108)
[2024-02-22] MEDS: LASIX 40 MG IV (11:09)
--- NOTE | 2024-02-22 11:52 | EDRN ---
While I was on lunch break, pt used BSC to void and it was emptied by tech without measuring output
[2024-02-22 11:58] LABS: Glucose - Point of Care 166 mg/dl (70-99)
--- NOTE | 2024-02-22 12:00 | PTCARENOTE ---
Received pt from ED via stretcher. Stretcher pulled in next to bed, pt ambulated to bed with assist x1. 2L o2. VSS. Pt c/o pain throughout right side abd. Pt informed this RN she slipped and fell onto her right side on Thursday. Assessed and
oriented to room. Pt verbalized understanding of call ayala. Call ayala within close reach. Will continue to monitor.
[2024-02-22] MEDS: SINGULAIR 10 MG PO (12:51)
[2024-02-22] MEDS: ROXICODONE 10 MG PO (12:51)
[2024-02-22] MEDS: PROTONIX 40 MG PO (12:51)
[2024-02-22] MEDS: ALDACTONE 25 MG PO (12:51)
[2024-02-22] MEDS: CALAN EXTENDED RELEASE 120 MG PO (13:00)
--- NOTE | 2024-02-22 13:59 | RESPNOTE ---
order for own bipap unit to use HS. patient does not have own unit and requests hospital unit. patient states cpap settings of +10 with ramp start of 4.0, with nasal mask. will TT MD for order change.
[2024-02-22] MEDS: DECADRON 4 MG IV ×2 (14:15→22:00)
--- NOTE | 2024-02-22 14:26 | PTCARENOTE ---
Pt c/o minor pressure in chest that radiates to right lower abd. Pt stated, 'It feels like this when I have indigestion' and 'Ever since I had my tripped on Thursday, I have had this pain on my right side which is where I landed on'. made aware.
[2024-02-22 14:57] LABS: Procalcitonin < 0.05 ng/ml (0.0-0.25)
[2024-02-22 16:23] LABS: Glucose - Point of Care 186 mg/dl (70-99)
[2024-02-22] MEDS: MIRALAX 17 GRAMS PO (16:48)
[2024-02-22] MEDS: TYLENOL 650 MG PO (16:51)
[2024-02-22] MEDS: LOVENOX 40 MG SC (16:52)
[2024-02-22] MEDS: PEPCID 20 MG PO (21:49)
[2024-02-22] MEDS: CRESTOR 20 MG PO (21:49)
[2024-02-22] MEDS: SENOKOT-S 2 TABLET PO (21:49)
[2024-02-22] MEDS: MUCINEX 600 MG PO (21:51)
[2024-02-22] MEDS: VIBRAMYCIN 100 MG PO (21:51)
[2024-02-22] MEDS: ASPIR LOW (ENTERIC COATED) 81 MG PO (21:51)
[2024-02-22] MEDS: TAMBOCOR 100 MG PO (21:51)
[2024-02-22] MEDS: ATIVAN 3 MG PO (21:57)
[2024-02-22] MEDS: REQUIP 2 MG PO (21:57)
[2024-02-22 22:10] LABS: Glucose - Point of Care 134 mg/dl (70-99)
[2024-02-23 03:00] VITALS: BP 114/62
[2024-02-23 05:57] LABS: % Basophils 0.1 % (0-2); % Immature Granulocytes 0.8 % (0-0.5); % Lymphocytes 7.5 % (20.5-51.1); % Neutrophils 87.6 % (42.2-75.2); Absolute Immature Granulocytes 0.1 10^3/uL (0-0.05); Absolute Lymphocytes 1.1 10^3/uL (1.2-3.4); Absolute Monocytes 0.6 10^3/uL (0.1-0.6); Absolute Neutrophils 12.2 10^3/uL (1.4-6.5); Hemoglobin 13.4 g/dL (12.0-16.0); Mean Corp Hgb Conc. 33.5 g/dL (33.0-37.0); Mean Corpuscular Hgb 30.8 pg (27.0-31.0); Mean Platelet Volume 9.9 fL (7.4-10.4); Nucleated Red Blood Cells % 0 %; Platelet Count 246 10^3/uL (130-400); Red Blood Cell Count 4.35 10^6/uL (4.20-5.40); Red Cell Dist. Width 14.2 % (11.5-14.5); White Blood Cell Count 13.9 10^3/uL (4.8-10.8)
[2024-02-23 06:00] VITALS: BMI 39.4
[2024-02-23 06:18] LABS: Blood Urea Nitrogen 25 mg/dl (7-17); Calcium 9.2 mg/dl (8.4-10.2); Carbon Dioxide 26 mmol/L (22-30); Chloride 103 mmol/L (98-107); Estimated Creatinine Clearance 102 ml/min; Glucose 151 mg/dl (70-99); Potassium 4.2 mmol/L (3.5-5.1); Sodium 140 mmol/L (135-145); eGFR > 60.00
[2024-02-23] MEDS: DECADRON 4 MG IV ×2 (06:35→15:32)
[2024-02-23 07:52] VITALS: BP 122/65
[2024-02-23 08:06] LABS: Glucose - Point of Care 145 mg/dl (70-99)
[2024-02-23] MEDS: ALDACTONE 25 MG PO (08:40)
[2024-02-23] MEDS: PROTONIX 40 MG PO (08:41)
[2024-02-23] MEDS: TAMBOCOR 100 MG PO (08:41)
[2024-02-23] MEDS: VIBRAMYCIN 100 MG PO (08:41)
[2024-02-23] MEDS: SINGULAIR 10 MG PO (08:41)
[2024-02-23] MEDS: MUCINEX 600 MG PO (08:41)
[2024-02-23] MEDS: ZYLOPRIM 100 MG PO (08:41)
[2024-02-23] MEDS: CALAN EXTENDED RELEASE 120 MG PO (08:41)
[2024-02-23] MEDS: VITAMIN C 1000 MG PO (08:41)
[2024-02-23] MEDS: VITAMIN D3 (cholecalciferol) 50 MCG PO (08:41)
[2024-02-23] MEDS: LASIX 40 MG PO (08:41)
[2024-02-23] MEDS: ASPIR LOW (ENTERIC COATED) 81 MG PO (08:42)
[2024-02-23] MEDS: ROXICODONE 10 MG PO (08:45)
[2024-02-23] MEDS: MIRALAX 17 GRAMS PO (09:00)
[2024-02-23 09:24] LABS: Glycohemoglobin (HgbA1c) 5.7 % (4.0-5.6)
[2024-02-23 11:29] VITALS: BP 115/57
[2024-02-23 11:41] LABS: Glucose - Point of Care 132 mg/dl (70-99)
--- NOTE | 2024-02-23 13:56 | W.DS.TRANS ---
DC Summary - [employer]
-
Discharge Instructions:
Discharge Diagnosis/Procedures IMPRESSION:
Acute hypoxic respiratory failure.
Acute CHF pEF
Other conditions:
Paroxysmal atrial fibrillation status post
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
Sick sinus syndrome with permanent pacemaker
Chronic CHF preserved EF
CAD with history of TX
CVA by history
COPD.
Obstructive sleep apnea with nightly CPAP
Morbid obesity with BMI of 40
Hemochromatosis
GERD
Nephrolithiasis complicated with obstructive
uropathy and gram-negative sepsis.
Anxiety requiring benzodiazepines
Chronic pain requiring opiates use
Diet 2 Gram Sodium
Instructions:
Stand-Alone Forms:
Changes to Home Medications: No
Discharge Medications:
DC Medications w/original date entered in [employer]
aspirin 81 mg tablet,delayed release 81 mg PO BID Blood Clot Prevention/Tx 12/11/09
lorazepam 1 mg tablet 3 mg PO HS Mental Health/Anxiety 04/12/15
rosuvastatin 20 mg tablet 20 mg PO HS High Cholesterol 04/23/18
ascorbic acid (vitamin C) 1,000 mg tablet (Vitamin C) 1,000 mg PO DAILY Supplement 09/27/18
flecainide 100 mg tablet 100 mg PO BID Arrhythmia 09/27/18
montelukast 10 mg tablet 10 mg PO DAILY ASTHMA 09/27/18
ropinirole 2 mg tablet 2 mg PO HS Neurological Condition 09/27/18
cholecalciferol (vitamin D3) 50 mcg (2,000 unit) tablet 2,000 unit PO DAILY Supplement 11/23/19
allopurinol 100 mg tablet 100 mg PO DAILY Gout 03/15/21
albuterol sulfate 90 mcg/actuation aerosol inhaler (Ventolin HFA) 2 inh inhalation R Q4HPRN PRN sob 04/16/22
fluticasone furoate 100 mcg-vilanterol 25 mcg/dose inhalation powder (Breo Ellipta) 1 inh inhalation R DAILYPRN PRN SOB 04/16/22
famotidine 20 mg tablet 20 mg PO HS Gastrointestinal Issue 06/20/23
furosemide 40 mg tablet 40 mg PO DAILY Fluid Retention/Swelling 06/20/23
pantoprazole 40 mg tablet,delayed release 40 mg PO DAILY Gastrointestinal Issue 06/20/23
verapamil 120 mg tablet,extended release 120 mg PO DAILY Blood Pressure 06/20/23
lorazepam 2 mg tablet 2 mg PO DAILYPRN PRN anxiety 10/12/23
oxycodone 10 mg tablet 10 mg PO Q4HPRN PRN severe pain 10/12/23
acetaminophen 325 mg tablet (Tylenol) 650 mg PO BIDPRN PRN mild pain 02/22/24
polyethylene glycol 3350 17 gram oral powder packet (HealthyLax) 17 g PO DAILYPRN PRN constipation 02/22/24
sennosides 8.6 mg-docusate sodium 50 mg tablet (Stool Softener-Laxative) 2 tab PO HS Constipation 02/22/24
spironolactone 25 mg tablet 25 mg PO DAILY Fluid Retention/Swelling 02/22/24
doxycycline hyclate 100 mg capsule 100 mg PO Q12 #6 caps 02/23/24
Home Medication Changes
Pending Results: No
[2024-02-23 15:45] VITALS: BP 149/92
--- NOTE | 2024-02-23 16:13 | VNURNOTE ---
Home Health Liaison spoke with patient to discuss [facility] nurse/therapy, visits, schedule and homebound status. Patient is agreeable and understands that visits at home will be 2-3 x per week to assess and teach medical management. Patient is aware
that [facility] will contact them for start of care in 1-2 days after discharge from .
[facility] referral completed in [facility].
--- NOTE | 2024-02-23 16:23 | CM ---
Alert awake oriented patient who lives with her Dimas who lives in a 2 story home with steps to enter and bed/bathroom o0n first floor..
She is independent in driving and in all activities of daily living.Offered VN she requested [facility] . Akanksha Monzon set up [facility] . drove her home.
CPAP [facility]
had [facility] hx /no SNF
Pharmacy [facility]
PCP Dr Michell Pryor
PLAN Home with [facility]
== END 2024-02-23 16:05 | disposition home health service (06) | DRG 190 ==
LOC: 3 WEST ACU 10:16
PROVIDERS: Student in an Organized Health Care Education/Training Program; ADMITTING PHYSICIAN Internal Medicine; EMERGENCY PHYSICIAN Emergency Medicine; FAMILY PHYSICIAN Family Medicine
DX: J44.0 Chronic obstructive pulmonary disease with (acute) lower respiratory infection (principal); J96.01 Acute respiratory failure with hypoxia; I50.32 Chronic diastolic (congestive) heart failure; Z68.41 Body mass index [BMI] 40.0-44.9, adult; J98.11 Atelectasis; J44.1 Chronic obstructive pulmonary disease with (acute) exacerbation; Z87.891 Personal history of nicotine dependence; I48.0 Paroxysmal atrial fibrillation; I49.5 Sick sinus syndrome; G47.33 Obstructive sleep apnea (adult) (pediatric); E66.01 Morbid (severe) obesity due to excess calories; F41.9 Anxiety disorder, unspecified; J20.9 Acute bronchitis, unspecified; I11.0 Hypertensive heart disease with heart failure; I25.10 Atherosclerotic heart disease of native coronary artery without angina pectoris; I25.2 Old myocardial infarction; K21.9 Gastro-esophageal reflux disease without esophagitis
CPT/HCPCS: 71046; 71101; 71260; 71275; 74160; 80048; 80053; 82805; 82962; 83036; 83880; 84145; 84484; 85025; 85379; 93005; 94640; 96374; 96375; 99285; Q9967

== ENCOUNTER → 2024-03-04 12:28 | Outpatient (REF) | payer MEDICARE, OTHER, SELFPAY | LOC: HWRAD 12:28 | PROVIDERS: ATTENDING PHYSICIAN Specialist; FAMILY PHYSICIAN Family Medicine | DX: N20.0 Calculus of kidney (principal); N39.0 Urinary tract infection, site not specified | CPT/HCPCS: 76775 ==

== ENCOUNTER → 2024-03-16 08:49 | Outpatient (REF) | payer MEDICARE, OTHER, SELFPAY ==
[2024-03-16 14:37] LABS: Urine Albumin 1+ (Neg - Trace); Urine Bilirubin Negative (Negative); Urine Character Clear (Clear); Urine Color Yellow; Urine Glucose Negative (Negative); Urine Ketone Negative (Negative); Urine Leukocyte 2+ (Negative); Urine Nitrite Positive (Negative); Urine Occult Blood Negative (Negative); Urine Specific Gravity 1.015 (<1.030); Urine Urobilinogen Negative (Neg - 1+)
[2024-03-16 15:07] LABS: Urine Squamous Cell 0-2 /LPF (Few)
[2024-03-16 15:08] LABS: Urine Bacteria Many (Negative); Urine Red Blood Cell 0-2 /HPF (0-2)
== END ==
LOC: HWLAB 08:49
PROVIDERS: ATTENDING PHYSICIAN Specialist; FAMILY PHYSICIAN Family Medicine
DX: N39.0 Urinary tract infection, site not specified (principal)
CPT/HCPCS: 81003; 81015; 87086; 87088; 87186

== ENCOUNTER 2024-07-13 21:54 | Inpatient (IN) | payer MEDICARE, OTHER, SELFPAY ==
[2024-07-13] VITALS (14 sets, daily range): BP systolic 96–140; BP diastolic 30–123; BMI 38.5; BMI 38.9
[2024-07-13 16:58] LABS: % Basophils 0.4 % (0-2); % Immature Granulocytes 0.5 % (0-0.5); % Lymphocytes 6.4 % (20.5-51.1); % Monocytes 9.5 % (1.7-9.3); % Neutrophils 83.2 % (42.2-75.2); Absolute Basophils 0.1 10^3/uL (0-0.2); Absolute Immature Granulocytes 0.1 10^3/uL (0-0.05); Absolute Lymphocytes 1.1 10^3/uL (1.2-3.4); Absolute Monocytes 1.6 10^3/uL (0.1-0.6); Absolute Neutrophils 14.1 10^3/uL (1.4-6.5); Hematocrit 42.4 % (37.0-47.0); Hemoglobin 14.8 g/dL (12.0-16.0); Mean Corp Hgb Conc. 34.9 g/dL (33.0-37.0); Mean Platelet Volume 9.6 fL (7.4-10.4); Nucleated Red Blood Cells % 0 %; Platelet Count 224 10^3/uL (130-400); Red Blood Cell Count 4.93 10^6/uL (4.20-5.40); Red Cell Dist. Width 13.6 % (11.5-14.5); White Blood Cell Count 16.9 10^3/uL (4.8-10.8)
[2024-07-13 17:05] LABS: ALT (SGPT) 20 U/L (0-35); AST (SGOT) 20 U/L (14-36); Alkaline Phosphatase 109 U/L (38-126); Blood Urea Nitrogen 14 mg/dl (7-17); Carbon Dioxide 23 mmol/L (22-30); Glucose 139 mg/dl (70-99); Lipase 64 U/L (23-300); Total Bilirubin 1.3 mg/dl (0.2-1.3); Total Protein 6.8 g/dl (6.3-8.2); eGFR > 60.00
[2024-07-13 17:28] LABS: Calcium 9.1 mg/dl (8.4-10.2); Chloride 100 mmol/L (98-107); Potassium 3.9 mmol/L (3.5-5.1); Sodium 135 mmol/L (135-145)
--- NOTE | 2024-07-13 18:07 | ED.GENMED ---
History of Present Illness
General
Chief Complaint: Weakness
Source: patient and spouse
Exam Limitations: none
Time Seen by Provider: 07/13/24 17:56
History of Present Illness
History of Present Illness:
69-year-old female. Had a syncopal episode/head injury about 10 days ago. Saw physician 2 days ago and was doing okay however that afternoon developed fever and chills. Also complaining of some cough. Increased weakness. Outpatient labs showed
leukocytosis. Some mild urinary urgency. History of kidney stones.
Past History
Past History
ED Past Medical History: Arrthythmia (Atrial fib, Ablation X3), CHF, COPD, GERD, Hypercholesterolemia, [place], Psychiatric (Anxiety) and Other (Sleep apnea, morbid obesity, hemochromatosis, Kidney stones)
ED Past Surgical History: Gynecological (D & C), Orthopedic and Other
Social History
Tobacco: Former smoker
Alcohol: None
Personal:
Living: with family
Employment: Not employed
Family History
Family History: CAD
Review of Systems
Review of Systems
All Other Systems: Not applicable
Constitutional: Reports fever, fatigue and chills
Respiratory: Reports cough; Denies trouble breathing
Cardiac: Denies chest pain
Phy Exam
Physical Exam
Physical Exam:
GENERAL: Alert and oriented. Very weak appearing. Slightly old for stated age. No signs of scalp trauma
EYE: Orbits normal.
NECK: Supple, no significant adenopathy. Nontender
ENT: Pharynx without erythema
CARDIAC: Regular rate and rhythm without any obvious murmurs.
LUNGS: Clear breath sounds,normal
ABDOMEN: Soft, bowel sounds present. Elevated BMI. Mild mid right abdominal tenderness. No rebound or guarding no mass or hernia
NEUROLOGICAL: Alert and oriented , grossly non-focal
SKIN: Warm and dry, no rash or lesion, no discoloration, skin intact.
MUSCULOSKELETAL: No edema,no deformity.Good color
PSYCH: Normal and appropriate interaction.
Sepsis
Sepsis Screening
Sepsis Assessment: Sepsis
Sepsis Screen
Sepsis Screen: Sepsis
Date: 07/13/24
Time: 22:47
Course
Orders/Labs/Results
Orders:
Orders
07/13/24 16:42
Complete Blood Count/With Diff Urgent
Comprehensive Metabolic Panel Urgent
Lipase Urgent
07/13/24 18:04
CT Head W/o Iv Contrast Urgent
Comment:
Reason For Exam: Recent fall head injury/vomiting
IV Insert/Care/Rem.- Treatment PRN
Straight cath- Treatment ONCE
0.9% Sodium Chloride 1000 ml [Nss] 1,000 ml IV BOLUS
Acetaminophen [Tylenol] 1,000 mg PO NOW STA
07/13/24 18:06
CT Abd/Pel (IV only)-DH only Urgent
Comment:
Reason For Exam: Right mid/flank abdominal pain/fever
07/13/24 18:07
CXR2 [CR Chest - 2 Views ] Urgent
Comment:
Reason For Exam: Cough/fever
07/13/24 18:21
COVID-19 Antigen Urgent
Source: Nasal Swab
Lactic Acid Q4H
Comment: CANCEL 2nd LACTIC ACID IF 1st LACTIC ACID IS LESS THAN 2
Urinalysis Reflex To Culture Urgent
Date Specimen was Collected: 07/13/24
Time Specimen was Collected: 16:37
Urine Microscopic Reflex Cult Urgent
Blood Culture Q30M
REBECA Source: Blood/Venous
Specimen Description:
Blood Culture Q30M
REBECA Source: Blood/Venous
Specimen Description:
Influenza A+B Rapid Molecular Urgent
REBECA Source: Nasal Swab
Specimen Description:
Urine Culture Urgent
REBECA Source: U
Specimen Description:
Date Specimen was Collected: 07/13/24
Time Specimen was Collected: 16:37
07/13/24 19:56
Cefepime HCl [Maxipime] 2,000 mg IV NOW STA
07/13/24 20:22
Sterile Water [Sterile Water For Injection] 20 ml .ROUTE .STK-MED
07/13/24 20:42
0.9% Sodium Chloride 1000 ml [Nss] 1,000 ml IV BOLUS
07/13/24 20:56
EKG [Electrocardiogram (*1)] Urgent
Reason for Study: PreOp
EKG- Treatment ONCE
07/13/24 21:08
Gentamicin Sulfate [Gentamicin] 200 mg 0.9% Sodium Chloride [Nss] 50 ml IV NOW
07/13/24 21:09
Dexamethasone Sod Phosphate [Decadron] 20 mg .ROUTE .STK-MED ONE
Lidocaine HCl/Pf [Xylocaine-Mpf 1% Vial] 50 mg .ROUTE .STK-MED ONE
Ondansetron Injectable [Zofran] 4 mg .ROUTE .STK-MED ONE
Propofol [Diprivan] 20 ml .ROUTE .STK-MED
Rocuronium [place] [Rocuronium] 50 mg .ROUTE .STK-MED ONE
Succinylcholine Chloride [Succinylcholine] 200 mg .ROUTE .STK-MED ONE
07/13/24 21:10
Fentanyl Citrate/Pf [Sublimaze] 100 mcg .ROUTE .STK-MED ONE
Lidocaine 2% [Lidocaine Uro-Jet 2%] 1 syringe .ROUTE .STK-MED ONE
07/13/24 21:14
Fentanyl Citrate/Pf [Sublimaze] 25 mcg IV PACU-Q5MPRN PRN
Fentanyl Citrate/Pf [Sublimaze] 50 mcg IV PACU-Q5MPRN PRN
Meperidine [Demerol] 12.5 mg IV PACU-Q5MPRN PRN
Ondansetron Injectable [Zofran] 4 mg IV PACU-ONCEPRN PRN
Prochlorperazine [Compazine] 5 mg IV PACU-ONCEPRN PRN
Notify MD As Directed
Notify physician if: for SDS patients with known or suspected sleep obstructive sleep apnea, monitor in the
PACU.
Notify MD for any apneic/desaturation episodes
O2 Therapy [RESP] Urgent
Titrate/Wean O2 to maintain O2 sat greater than (%): 92
Special Instructions: -Provide supplemental oxygen to achieve O2 sat of 92% or greater.
-After 15 min, may wean O2 and discontinue if patient is able to maintain O2 sat of 92%
or greater during recovery period.
If patient is a discharge home, without oxygen therapy, notify anestheiologist if
unable to maintain O2 SAT of 92% or greater on room air for MD clearance.
07/13/24 21:15
Normosol (Mult Electrolytes) [Normosol-R/Plasmalyte-A] 1,000 ml IV PER PROTOCOL
07/13/24 21:18
Admit/Transfer Patient As Directed
Co-Sign Provider:
Level of Care: Inpatient admission
Assign to:: ICU
Physician / Group: [email or web address]
Diagnosis: Complicated UTI due to infected 4 to 5 mm obstructing mid Rt ureteral sto
Reason for Hospitalization: Complicated UTI
infected 4 to 5 mm obstructing mid Rt ureteral stone
Chronic HFpEF with LVEF 55-60
COPD HX
LILIA on CPAP HS
Paroxysmal AF
Expected length of stay greater than two midnights?: Yes
ELOS- Estimated Length of Stay in days: 5
I certify the patient meets the requirements for IP care: Yes
07/13/24 21:25
Code Status As Directed
Resuscitation Status: Full Code
07/13/24 21:38
Dexamethasone Sod Phosphate [Decadron] 20 mg .ROUTE .STK-MED ONE
Ondansetron Injectable [Zofran] 4 mg .ROUTE .STK-MED ONE
Phenylephrine HCl/0.9% NaCl [Yovani-Synephrine] 1,000 mcg .ROUTE .STK-MED ONE
07/13/24 21:46
Sugammadex Sodium [Bridion] 200 mg .ROUTE .STK-MED ONE
07/13/24 22:00
Flush (0.9% Sodium Chloride) [Flush (Nss)] See Dose Instructions IV PER PROTOCOL
07/13/24 22:09
0.9% Sodium Chloride 1000 ml [Nss] 1,000 ml IV 60 mls/hr
Albuterol [ProAIR HFA INHALER] 2 puff INH R Q4HPRN PRN
Docusate W/Senna [Senokot-S] 2 tablet PO HS
HYDROmorphone [Dilaudid] 0.25 mg IV Q4HPRN PRN
Ondansetron Injectable [Zofran] 4 mg IV Q6HPRN PRN
Oxycodone [Roxicodone] 15 mg PO Q6HPRN PRN
Polyethylene Glycol Powder [Miralax] 17 grams PO DAILYPRN PRN
Rosuvastatin Calcium [Crestor] 20 mg PO HS
ropinirole See Dose Instructions PO HS
07/13/24 22:09
UROLOGY CONSULT Routine
Consulting Provider: Sean Nicholas Jr.
Was physician already notified: Yes
Comment: complicated stone UTI
Urinalysis Reflex To Culture Urgent
Activity As Directed
Activity Level: With Assistance
Intake/ Output As Directed
Frequency: Per unit guidelines
Pneumatic Compression Sleeves As Directed
Type: Knee high
Vital Signs As Directed
Frequency: Per unit guidelines
Weight As Directed
Frequency: Daily
DX Deep Vein Thrombosis Video Routine
07/13/24 23:00
Ammonium Lactate 12% [Lac Hydrin, Am Lactin Lotion] See Dose Instructions TOPICAL HS
Lorazepam [Ativan] 3 mg PO TID
07/14/24 Breakfast
NPO
Allow oral meds: Yes
Allow clear liquids: Sips of Clears
NPO with Ice Chips: Yes
Complete Blood Count/No Diff IN AM
Comprehensive Metabolic Panel IN AM
07/14/24 08:00
Allopurinol [Zyloprim] 100 mg PO DAILY
Aspirin Low Dose EC [Aspir Low (Enteric Coated)] 81 mg PO BID
Cefepime HCl [Maxipime] 1,000 mg IV Q12
Flecainide [Tambocor] 100 mg PO BID
Furosemide [Lasix] 40 mg PO DAILY
Montelukast Sodium [Singulair] 10 mg PO DAILY
Pantoprazole [Protonix] 40 mg PO DAILY
Spironolactone [Aldactone] 25 mg PO DAILY
Verapamil Extended Release [Calan Extended Release] 120 mg PO DAILY
Abnormal Lab Results
07/13/24 07/13/24
16:42 18:21
WBC 16.9 H 10^3/uL
(4.8-10.8)
Abs Immat Gran (auto) 0.1 H 10^3/uL
(0-0.05)
Absolute Neuts (auto) 14.1 H 10^3/uL
(1.4-6.5)
Absolute Lymphs (auto) 1.1 L 10^3/uL
(1.2-3.4)
Absolute Monos (auto) 1.6 H 10^3/uL
(0.1-0.6)
Neutrophils % 83.2 H %
(42.2-75.2)
Lymphocytes % 6.4 L %
(20.5-51.1)
Monocytes % 9.5 H %
(1.7-9.3)
Glucose 139 H mg/dl
(70-99)
Ur Occult Blood Reflex 3+ A
(Negative)
Urine Nitrite (Reflex) Positive A
(Negative)
Leukocyte Esterase Rfl 3+ A
(Negative)
Urine RBC 3-6 A /HPF
(0-2)
Urine WBC (Reflex) 80-90 A /HPF
(0-5)
Urine Bacteria (Reflex) Many A
(Negative)
Urine Albumin (Reflex) 3+ A
(Neg - Trace)
07/13/24 16:42
07/13/24 16:42
Vital Signs
Initial and Last Documented VS:
Initial Vital Signs
Temp Pulse Resp BP Pulse Ox
98.5 F 86 18 98/67 93
07/13/24 16:32 07/13/24 16:32 07/13/24 16:32 07/13/24 16:32 07/13/24 16:32
Last Documented Vital Signs
Temp Pulse Resp BP Pulse Ox
98.6 F 64 29 122/46 97
07/13/24 22:30 07/13/24 22:30 07/13/24 22:30 07/13/24 22:30 07/13/24 22:30
MDM/Problems Addressed
Differential Diagnosis Includes:
Patient describing infectious symptoms. Very weak appearing. Some respiratory symptoms. Some abdominal/flank pain. Large differential including kidney stone, pyelonephritis, both. Gallbladder. Respiratory infectious issue. Also with recent
head injury needs a CT of her head. Based on her clinical appearance she very likely warrants admission. Workup in progress
*Radiology
Radiology exam reviewed: radiology read reviewed (4 to 5 mm obstructing mid right ureteral stone with hydronephrosis and probable pyelo-.)
*Pulse Oximetry
Patient hypoxic: no
*Critical Care Note
Total Time (30-74mins, 75-104mins- exclusive of procedures): 35
Data Reviewed
Review of Other/Old Records Reveals: Labs, Records, Radiology Studies and Other (Echocardiogram)
Update Note
Update Note:
1809... Patient with a history of pulmonary edema based on previous admissions. Echocardiogram reasonable. Will give fluids carefully. Ordered 1 L but will start with 500 cc
2039... Remains mildly hypotensive. Will continue fluids. Antibiotics ordered. Urology hospitalist contacted. Obstructing stone with infection pyelo-.
ED Attending Note
-
Portions of this chart may have been created with voice recognition software.� Occasional wrong word or��sound alike� substitutions may have occurred due to the inherent limitations of voice recognition software.
Discharge Plan
Departure
Patient Disposition: Admit
Date of Disposition: 07/13/24
Time of Disposition: 20:41
Presentation/result/management discussed w/ accepting MD/DO: Urology
Discharge Problem:
Obstructing kidney stone, Pyelonephritis
Interventions
Interventions:
*Risk Screen - Suicide Last Done: 07/13/24 16:32
*General Assessment Last Done: 07/13/24 16:32
*Neglect/Abuse Screening Last Done: 07/13/24 16:32
*ED- Fall Risk Assessment Last Done: 07/13/24 17:49
*ED COVID-19 Vaccine History Last Done: 07/13/24 17:49
*Nursing Disposition Last Done: 07/13/24 21:15
ED- Cardiac Assessment Last Done: 07/13/24 17:49
ED- Neurological Assessment Last Done: 07/13/24 17:49
ED- Pulmonary Assessment Last Done: 07/13/24 17:49
Discharge Date and Time
Discharge Date/Time: 07/13/24 21:15
[2024-07-13] MEDS: TYLENOL 1000 MG PO (18:15)
[2024-07-13] MEDS: NSS 1000 IV ×2 (18:20→21:00)
[2024-07-13 18:47] LABS: Lactic Acid 1.4 mmol/L (0.7-2.0)
[2024-07-13 18:58] LABS: COVID-19 Antigen Negative (Negative)
[2024-07-13 19:11] LABS: Urine Albumin 3+ (Neg - Trace); Urine Bilirubin Negative (Negative); Urine Character Slightly Cloudy (Clear); Urine Color Amber; Urine Glucose Negative (Negative); Urine Ketone Negative (Negative); Urine Leukocyte 3+ (Negative); Urine Nitrite Positive (Negative); Urine Occult Blood 3+ (Negative); Urine Specific Gravity 1.015 (<1.030); Urine Urobilinogen Negative (Neg - 1+)
[2024-07-13 19:55] LABS: Urine Bacteria Many (Negative); Urine White Cell 80-90 /HPF (0-5)
[2024-07-13] MEDS: MAXIPIME 2000 MG IV (20:26)
--- NOTE | 2024-07-13 20:43 | HPS.HSE ---
Family Physician
-
Family Physician: Mulu Newby
Chief Complaint
-
fever and chills.
History of Present Illness
HPI
69F Morbidly obese , HX Nephrolithiasis, urosepsis, Hx Prx AF on Flecainide , Not on OAC, Chr HFpE , LILIA , CAD on ASA, HTN with recent syncopal episode / head injury about 10 days ago, seen at ER
- this afternoon developed fever and chills.
- mild urinary urgency
- Increased weakness.
- Outpatient labs showed leukocytosis.
At ER:
POS UA fr [place]. UCx sent . BCxs ent
RX: with 2 L NS and IV CFP
Medical History
Past Medical History
Past Medical History: Reports Arrhythmia (Paroxysmal A-fib status post ablation), CAD, CHF and COPD
Past Surgical History: Reports Urological
Social History
Tobacco: Non-smoker
Alcohol: None
Drug: None
Personal:
Living: With Family
Family History
Family History: Not pertinent
Allergies / Home Medications
Allergies reflects when Allergies were last updated in [employer].
Home Medications with original date entered in [employer]
Allergy/Medication List:
Allergies
Allergy/AdvReac Type Severity Reaction Status Date / Time
hydrocodone [From Vicodin] Allergy Itching-can Verified 02/22/24 06:19
take 1/2
tablet
Home Medications
aspirin 81 mg tablet,delayed release 81 mg PO BID Blood Clot Prevention/Tx 12/11/09
lorazepam 1 mg tablet 3 mg PO HS Mental Health/Anxiety 04/12/15
rosuvastatin 20 mg tablet 20 mg PO HS High Cholesterol 04/23/18
ascorbic acid (vitamin C) 1,000 mg tablet (Vitamin C) 1,000 mg PO DAILY Supplement 09/27/18
flecainide 100 mg tablet 100 mg PO BID Arrhythmia 09/27/18
montelukast 10 mg tablet 10 mg PO DAILY ASTHMA 09/27/18
ropinirole 2 mg tablet 2 mg PO HS Neurological Condition 09/27/18
cholecalciferol (vitamin D3) 50 mcg (2,000 unit) tablet 2,000 unit PO DAILY Supplement 11/23/19
allopurinol 100 mg tablet 100 mg PO DAILY Gout 03/15/21
albuterol sulfate 90 mcg/actuation aerosol inhaler (Ventolin HFA) 2 inh inhalation R Q4HPRN PRN sob 04/16/22
fluticasone furoate 100 mcg-vilanterol 25 mcg/dose inhalation powder (Breo Ellipta) 1 inh inhalation R DAILYPRN PRN SOB 04/16/22
famotidine 20 mg tablet 20 mg PO HS Gastrointestinal Issue 06/20/23
furosemide 40 mg tablet 40 mg PO DAILY Fluid Retention/Swelling 06/20/23
pantoprazole 40 mg tablet,delayed release 40 mg PO DAILY Gastrointestinal Issue 06/20/23
verapamil 120 mg tablet,extended release 120 mg PO DAILY Blood Pressure 06/20/23
lorazepam 2 mg tablet 2 mg PO DAILYPRN PRN anxiety 10/12/23
oxycodone 10 mg tablet 10 mg PO Q4HPRN PRN severe pain 10/12/23
acetaminophen 325 mg tablet (Tylenol) 650 mg PO BIDPRN PRN mild pain 02/22/24
polyethylene glycol 3350 17 gram oral powder packet (HealthyLax) 17 g PO DAILYPRN PRN constipation 02/22/24
sennosides 8.6 mg-docusate sodium 50 mg tablet (Stool Softener-Laxative) 2 tab PO HS 02/22/24
spironolactone 25 mg tablet 25 mg PO DAILY 02/22/24
Review of Systems
-
Constitutional: Reports Fever, Night Sweats and Chills
EENT: Reports No Symptoms
Respiratory: Reports No Symptoms
Cardiac: Reports No Symptoms
Abdomen/GI: Reports No Symptoms
: Reports Dysuria and Urgency
Musculoskeletal: Reports No Symptoms
Skin: Reports No Symptoms
Neurological: Reports No Symptoms
Endocrine: Reports No Symptoms
Hematologic/Lymphatic: Reports No Symptoms
Psych: Reports No Symptoms
Physical Exam
Vital Signs
Vital Signs
Temp Pulse Resp BP Pulse Ox
99.2 F 72 36 118/54 91
07/13/24 18:30 07/13/24 19:15 07/13/24 19:15 07/13/24 19:00 07/13/24 19:15
Physical Exam
General: Obese (BMI 38 - morbidly obesity )
HEENT: Anicteric and Moist mucous membranes
Respiratory: Clear; No Wheezes, Rales or Rhonchi
Cardiac: S1/S2; No Bradycardia or Tachycardia
Breast: Deferred by me
GI: Soft, Non Tender, Non Distended and Other (obese abdomen )
Genito-urinary: Costovertebral angle tend (R sided CVA tenderness )
Musculoskeletal: No Edema
Skin: Warm
Neuro: AO x 3 and No Motor Deficits
Psych: Calm and Intact Judgment/Insight
Laboratory Results
-
07/13/24 16:42
07/13/24 16:42
Laboratory Results
Lactic Acid Cancelled 07/13/24 22:15
Total Bilirubin 1.3 mg/dl (0.2-1.3) 07/13/24 16:42
AST 20 U/L (14-36) 07/13/24 16:42
ALT 20 U/L (0-35) 07/13/24 16:42
Alkaline Phosphatase 109 U/L (38-126) 07/13/24 16:42
Lipase 64 U/L (23-300) 07/13/24 16:42
Data Reviewed
-
CT Scan: Report Reviewed by me
Lab Data: Labs Reviewed by me
Old Records: Reviewed
Impression/Plan
-
Selected Entries
07/13/24
16:32 07/13/24
18:30
Temp 98.5 F 99.2 F
Pulse 86
Resp Rate 18
Blood pressure 98/67
SaO2 93
Oxygen Mode of Delivery Room air
Laboratory Tests
07/13/24 07/13/24
16:42 18:21
WBC 16.9 H
Creatinine 0.9
eGFR > 60.00
Glucose 139 H
Urine Clarity Slightly cloudy
Urine Nitrite (Reflex) Positive A
Urine WBC (Reflex) 80-90 A
SARS-CoV-2 Antigen Negative
UCx sent
BCx sent
CT AP: 4 to 5 mm obstructing mid right ureteral stone with hydronephrosis and probable pyelo-.)
HCT: No acute intracranial abnormality noted.
10/13/23 TTE:
Technically difficult.
Normal left ventricular systolic function.
LV ejection fraction is 55-60% .
Mild aortic regurgitation.
Compared to the previous echo mild AR reported. Otherwise there is no significant change.
Last hospitalist admission: 02/22/24- 02/23/24
DC Dxs: Acute hypoxic respiratory failure. Acute Chr HFpEF
ASSESSMENT & PLAN
Complicated UTI due to infected 4 to 5 mm obstructing mid Rt ureteral stone complicated with hydronephrosis and probable pyelonephritis
HX Nephrolithiasis complicated with obstructive uropathy and gram-negative sepsis.
- UCx and BCx sent
- NPO and IV NS
- Empiric IV CFP
- PRN Narcotic analgesia
- to IMU/ICU post urological procedure
- Urologist will take patient ot OR tonight
Chronic HFpEF with LVEF 55-60 on 10/13/23 TTE
- f/u IOs and daily Wt
- To consider IV Lasix 40 post op if POS fluid balance
- c/w TONNAGE COMPILATION CLERK PO Frusemide 40 daily
- c/w TONNAGE COMPILATION CLERK spironolactone TONNAGE COMPILATION CLERK
COPD HX
LILIA on CPAP HS
- TONNAGE COMPILATION CLERK regimen: Breo elliptica, montelukast, albuterol HFA.
- c/w TONNAGE COMPILATION CLERK CPAP at night
CAD with HX [place].
Benign Hypertension
- c/w ASA, verapamil, S tatin
Paroxysmal AF s/p ost ablation x2
- not on anticoagulation TONNAGE COMPILATION CLERK.
- c/w TONNAGE COMPILATION CLERK flecainide and Verapamil
Obesity due to excessive calories.
- affect all aspects of life
Anxiety
- c/w TONNAGE COMPILATION CLERK benzodiazepines. Monitor for sedation.
- c/w ropinirole
DVT prophylaxis: SCD
Full code
IMU vs ICU post stent
--- NOTE | 2024-07-13 21:17 | CON.MD ---
Consultation - Medical
-
see dictated note
pt with multiple med problems- long hx of stones/UTI's and sepsis- last spring 2023
presents with weakness/fevers/right flank pain
wbc elevated- ua +- CT with mid ureteral stone and pyelo
reviewed with med team and pt
to OR for stent
risks, benefits,alternatives reviewed
--- NOTE | 2024-07-13 21:55 | W.IMMPOSTOP ---
Surgical Immed Post Op Note
-
Primary Surgeon:
toshia
Assisting Surgeon:
Pre-op Diagnosis:
obstructing right ureteral stone and UTI
Post-op Diagnosis:
same
Procedure Performed:
cysto/right ureteral stent
Anesthesia Type:
gen
Specimen / Cultures:
none
Estimated Blood Loss:
1cc
Complications:
none
Operative Findings:
6f/24 cm right ureteral stent placed
to pacu/IMU
[2024-07-14] VITALS (19 sets, daily range): BP systolic 89–122; BP diastolic 41–85; PULSE 60–69; O2SAT 99; BMI 38.9; BMI 39.2
[2024-07-14] MEDS: CRESTOR 20 MG PO ×2 (00:03→22:08)
[2024-07-14] MEDS: SENOKOT-S 2 TABLET PO ×2 (00:03→22:08)
[2024-07-14] MEDS: NSS 1000 IV ×2 (00:03→10:13)
[2024-07-14] MEDS: ATIVAN 3 MG PO ×4 (00:04→22:08)
[2024-07-14] MEDS: LAC HYDRIN, AM LACTIN LOTION TOPICAL (00:29)
--- NOTE | 2024-07-14 03:14 | PTCARENOTE ---
received verbal report from PACU nurse. Patient transferred via stretcher without issues. All belongings in room with patient. patient on cpap overnight. Call ayala in reach.
[2024-07-14 04:29] LABS: Hematocrit 37.4 % (37.0-47.0); Hemoglobin 12.8 g/dL (12.0-16.0); Mean Corp Hgb Conc. 34.2 g/dL (33.0-37.0); Mean Corpuscular Hgb 29.8 pg (27.0-31.0); Mean Corpuscular Volume 87.2 fL (81.0-99.0); Mean Platelet Volume 9.6 fL (7.4-10.4); Platelet Count 195 10^3/uL (130-400); Red Blood Cell Count 4.29 10^6/uL (4.20-5.40); Red Cell Dist. Width 13.5 % (11.5-14.5); White Blood Cell Count 15.5 10^3/uL (4.8-10.8)
[2024-07-14 04:56] LABS: ALT (SGPT) 21 U/L (0-35); AST (SGOT) 22 U/L (14-36); Albumin 3.6 g/dl (3.5-5.0); Alkaline Phosphatase 109 U/L (38-126); Blood Urea Nitrogen 13 mg/dl (7-17); Calcium 8.5 mg/dl (8.4-10.2); Carbon Dioxide 23 mmol/L (22-30); Chloride 107 mmol/L (98-107); Estimated Creatinine Clearance 107 ml/min; Glucose 142 mg/dl (70-99); Potassium 4.4 mmol/L (3.5-5.1); Sodium 139 mmol/L (135-145); Total Bilirubin 0.7 mg/dl (0.2-1.3); eGFR > 60.00
--- NOTE | 2024-07-14 06:14 | W.PN.URO.CBU ---
Today's Communication / Plan
-
continue supportive medical care
Assessment / Plan
-
obstructing right ureteral stone and UTI
s/p right ureteral stent
pt stable
continue medical support
iv antibx/await cx's
continue frye today
may advance diet and activity per med service
Diagnosis
-
Date of Service: July 14, 2024
-
Patient Diagnosis:
obstructing right ureteral stone/UTI
Post Op Day:
right ureteral stent 07/13
Subjective
-
pt feels tired- but better
no fevers overnight- HD stable
urine clear form frye
Objective
-
Vital Signs
Temp Pulse Resp BP Pulse Ox
97.4 F 61 30 99/70 97
07/14/24 04:08 07/14/24 06:00 07/14/24 06:00 07/14/24 06:00 07/14/24 06:00
Intake and Output
07/12/24 07/13/24 07/14/24
06:59 06:59 06:59
Intake Total 800 / 800
Output Total 850 / 850
Balance -50 / -50
Intake:
IV fluids (Total) 800 / 800
NSS 800 / 800
Output:
Urine, Frye 850 / 850
Laboratory Results
07/14/24 04:10
07/14/24 04:10
Review of Systems
-
Constitutional: Fatigue
Respiratory: No Symptoms
Cardiac: No Symptoms
Abdomen/GI: No Symptoms
Physical Exam
-
General - no acute distress
Abdomen - soft, non-tender
Genitalia - frye in place
--- NOTE | 2024-07-14 06:48 | W.PN.HOSP.TC ---
Today's Communication/Plan
-
cont abx
follow cultures
PT eval
maintain Phillips as per urology
pain control
Assessment / Plan
Assessment / Plan
Physical Exam
General: Obese, no acute distress, appears comfortable at this time.
HEENT: Anicteric and Moist mucous membranes
Respiratory: Clear; No Wheezes, Rales or Rhonchi
Cardiac: S1/S2; No Bradycardia or Tachycardia
GI: Soft, Non Tender, Non Distended and bowel sounds present
Genito-urinary: Right Costovertebral angle tenderness
Musculoskeletal: No Edema
Skin: Warm
Neuro: AOx3 conversant coherent
Psych: Calm and Intact Judgment/Insight
CT AP: 4.4 mm obstructing stone mid right ureter w associated mild right-sided hydroureteronephrosis. Perinephric edema concerning for superimposed infection
HCT: No acute intracranial abnormality noted.
ASSESSMENT & PLAN
69F Morbid Obesity Kidney Stones pAfib Fleicanide HFpEF LILIA CAD here for rt kidney stone obstruction w associate pyelonephritis sepsis.
Complicated UTI
4.4 mm obstructing mid Rt ureteral stone complicated with hydronephrosis and pyelonephritis
HX Nephrolithiasis complicated with obstructive uropathy and gram-negative sepsis.
- Urology consult appreciated s/p rt ureteral stent 07/13/24
- cont Phillips as per Urology
- follow blood urine cultures
- Cont Empiric Cefipime
- Pain control
Chronic HFpEF with LVEF 55-60 on 10/13/23 TTE
- I/Os and daily Weight
- c/w PIPE TURNER PO Frusemide 40 daily
- c/w PIPE TURNER spironolactone PIPE TURNER
COPD HX
LILIA on CPAP HS
- PIPE TURNER regimen: Breo elliptica, montelukast, albuterol HFA.
- c/w PIPE TURNER CPAP at night
CAD with HX OR.
Benign Hypertension
- c/w ASA, verapamil, Statin
Paroxysmal AF s/p ablation x2
- not on anticoagulation PIPE TURNER.
- c/w PIPE TURNER flecainide and Verapamil
Obesity due to excessive calories.
- affect all aspects of life
Anxiety
- c/w PIPE TURNER benzodiazepines. Monitor for sedation.
- c/w ropinirole
PT appreciated home health
DVT prophylaxis: SCD
Full code
I spent a total of 50 minutes with the patient or on the floor. More than 50% of this time involved counseling and coordination of care.
Anticipated Discharge: 24 - 48 hours
Subjective/Interval History
-
Date of Service: July 14, 2024
No acute distress resting comfortably in bed. Reports significant improvement right sided flank pain but not resolved.
Objective Data
-
Labs:
Laboratory Results
07/14/24
04:10
WBC 15.5 H
Hgb 12.8
Hct 37.4
Plt Count 195
Sodium 139
Potassium 4.4
Chloride 107
Carbon Dioxide 23
BUN 13
Creatinine 0.6
Glucose 142 H
Calcium 8.5
Total Bilirubin 0.7
AST 22
ALT 21
Alkaline Phosphatase 109
Vital Signs:
Vital Signs
Temp Pulse Resp BP Pulse Ox
97.4 F 61 30 99/70 97
07/14/24 04:08 07/14/24 06:00 07/14/24 06:00 07/14/24 06:00 07/14/24 06:00
I&O
07/12/24 07/13/24 07/14/24
06:59 06:59 06:59
Intake Total 800 / 800
Output Total 850 / 850
Balance -50 / -50
--- NOTE | 2024-07-14 07:53 | PTCARENOTE ---
Pt sleeping at this tme with 15 l NRB. POss DC today
--- NOTE | 2024-07-14 07:57 | PTCARENOTE ---
Pt awake on cpap . Rsp will take her off.
[2024-07-14] MEDS: ASPIR LOW (ENTERIC COATED) 81 MG PO ×2 (08:38→20:02)
[2024-07-14] MEDS: LASIX 40 MG PO (08:38)
[2024-07-14] MEDS: ZYLOPRIM 100 MG PO (08:39)
[2024-07-14] MEDS: SINGULAIR 10 MG PO (08:39)
[2024-07-14] MEDS: ALDACTONE 25 MG PO (08:39)
[2024-07-14] MEDS: PROTONIX 40 MG PO (08:39)
[2024-07-14] MEDS: TAMBOCOR 100 MG PO ×2 (08:39→20:02)
[2024-07-14] MEDS: MAXIPIME 1000 MG IV ×2 (08:40→20:02)
[2024-07-14] MEDS: STERILE WATER FOR INJECTION 10 ML IV ×2 (08:40→20:02)
[2024-07-14] MEDS: CALAN EXTENDED RELEASE 120 MG PO (10:14)
[2024-07-14] MEDS: TYLENOL 1000 MG PO (10:15)
[2024-07-14] MEDS: MORPHINE SULFATE 2 MG IV ×2 (12:16→20:03)
[2024-07-14] MEDS: MIRALAX 17 GRAMS PO (16:12)
[2024-07-14] MEDS: DULCOLAX 10 MG RECTAL (22:08)
[2024-07-14] MEDS: LAC HYDRIN, AM LACTIN LOTION 1 APPLIC TOPICAL (22:15)
[2024-07-15] VITALS (19 sets, daily range): BP systolic 74–122; BP diastolic 49–78; PULSE 60–68; BMI 39.7
[2024-07-15 04:20] LABS: Hematocrit 34.5 % (37.0-47.0); Hemoglobin 11.7 g/dL (12.0-16.0); Mean Corp Hgb Conc. 33.9 g/dL (33.0-37.0); Mean Corpuscular Hgb 29.7 pg (27.0-31.0); Mean Corpuscular Volume 87.6 fL (81.0-99.0); Platelet Count 215 10^3/uL (130-400); Red Blood Cell Count 3.94 10^6/uL (4.20-5.40); Red Cell Dist. Width 13.4 % (11.5-14.5); White Blood Cell Count 16.2 10^3/uL (4.8-10.8)
[2024-07-15 04:44] LABS: Blood Urea Nitrogen 19 mg/dl (7-17); Calcium 8.7 mg/dl (8.4-10.2); Carbon Dioxide 24 mmol/L (22-30); Chloride 107 mmol/L (98-107); Estimated Creatinine Clearance 107 ml/min; Glucose 118 mg/dl (70-99); Magnesium 2.2 mg/dl (1.6-2.3); Phosphorus 2.9 mg/dl (2.5-4.5); Potassium 4.6 mmol/L (3.5-5.1); Sodium 138 mmol/L (135-145); eGFR > 60.00
--- NOTE | 2024-07-15 07:31 | W.PN.HOSP.TC ---
Today's Communication/Plan
-
cont abx
holding parameters updated Lasix Aldactone
low dose midodrine started
TOV
Follow Culture sensitivities E.coli
pain control
Assessment / Plan
Assessment / Plan
Physical Exam
General: Obese, no acute distress, appears comfortable at this time.
HEENT: Anicteric and Moist mucous membranes
Respiratory: Clear; No Wheezes, Rales or Rhonchi
Cardiac: S1/S2; No Bradycardia or Tachycardia
GI: Soft, Non Tender, Non Distended and bowel sounds present
Genito-urinary: Right Costovertebral angle tenderness
Musculoskeletal: No Edema
Skin: Warm
Neuro: AOx3 conversant coherent
Psych: Calm and Intact Judgment/Insight
CT AP: 4.4 mm obstructing stone mid right ureter w associated mild right-sided hydroureteronephrosis. Perinephric edema concerning for superimposed infection
HCT: No acute intracranial abnormality noted.
ASSESSMENT & PLAN
69F Morbid Obesity Kidney Stones pAfib Fleicanide HFpEF LILIA CAD here for rt kidney stone obstruction w associate pyelonephritis sepsis.
Complicated UTI
4.4 mm obstructing mid Rt ureteral stone complicated with hydronephrosis and pyelonephritis
HX Nephrolithiasis complicated with obstructive uropathy and gram-negative sepsis.
- Urology consult appreciated s/p rt ureteral stent 07/13/24
- Phillips discontinued, passed trial of void
- blood cx's NGTD urine cultures prelim pos E. coli follow up sensitivities
- Cont Empiric Cefipime
- Pain control
Low Pressures/Borderline Hypotensive
-Low dose midodrine started w/ holding parameters
Chronic HFpEF with LVEF 55-60 on 10/13/23 TTE
- I/Os and daily Weight
- cont home Lasix and Spironolactone w/ holding parameters
COPD HX
LILIA on CPAP HS
- cont home Breo elliptica, montelukast, albuterol HFA.
- cont CPAP HS
CAD with HX [place].
Benign Hypertension
- c/w ASA, verapamil, Statin
Paroxysmal AF s/p ablation x2
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
Obesity due to excessive calories.
- affect all aspects of life
Anxiety
- cont home Ativan, monitor for sedation
- cont home ropinirole
PT appreciated home health
DVT prophylaxis: SCD
Full code
I spent a total of 50 minutes with the patient or on the floor. More than 50% of this time involved counseling and coordination of care.
Anticipated Discharge: 24 - 48 hours
Subjective/Interval History
-
Date of Service: July 15, 2024
No acute distress sitting up comfortably in chair. Reports significant improvement in pain though not resolved. Phillips discontinued and patient reports peeing without issues.
Objective Data
-
Labs:
Laboratory Results
07/15/24
04:02
WBC 16.2 H
Hgb 11.7 L
Hct 34.5 L
Plt Count 215
Sodium 138
Potassium 4.6
Chloride 107
Carbon Dioxide 24
BUN 19 H
Creatinine 0.6
Glucose 118 H
Calcium 8.7
Vital Signs:
Vital Signs
Temp Pulse Resp BP Pulse Ox
97.4 F 61 26 108/68 93
07/15/24 07:08 07/15/24 05:30 07/15/24 05:30 07/15/24 04:00 07/15/24 05:30
I&O
07/14/24 07/15/24 07/16/24
06:59 06:59 06:59
Intake Total 800 / 800 960 / 960
Output Total 850 / 850 1050 / 1050
Balance -50 / -50 -90 / -90
--- NOTE | 2024-07-15 08:20 | W.PN.URO.CBU ---
Today's Communication / Plan
-
continue medical support
Assessment / Plan
-
obstructing right ureteral stone and UTI
s/p right ureteral stent
pt stable
continue medical support
iv antibx/await cx's- wbc still elevated- if ucx negative- may need to investigate other sources of leukocytosis
eventual plan for outpt f/u with dr schroeder to scheduled stone procedure
Diagnosis
-
Date of Service: July 15, 2024
-
Patient Diagnosis:
obstructing right ureteral stone/UTI
Post Op Day:
right ureteral stent 07/13
Subjective
-
pt still tired with cough
mild stent irritation
med team ordered frye removal
afebrile, but wbc still elevated
blood cx's negative to date- ucx pending
Objective
-
Vital Signs
Temp Pulse Resp BP Pulse Ox
97.4 F 61 26 108/68 93
07/15/24 07:08 07/15/24 05:30 07/15/24 05:30 07/15/24 04:00 07/15/24 05:30
Intake and Output
07/14/24 07/15/24 07/16/24
06:59 06:59 06:59
Intake Total 800 / 800 960 / 960
Output Total 850 / 850 1050 / 1050
Balance -50 / -50 -90 / -90
Intake:
Oral fluids 240 / 240
IV fluids (Total) 800 / 800 720 / 720
NSS 800 / 800
Output:
Urine, Frye 850 / 850 1050 / 1050
Laboratory Results
07/15/24 04:02
07/15/24 04:02
Review of Systems
-
Constitutional: Fatigue
Respiratory: Cough
Cardiac: No Symptoms
Abdomen/GI: No Symptoms
: Frequency
Musculoskeletal: Muscle Stiffness
Physical Exam
-
General - no acute distress
Abdomen - soft, non-tender
Genitalia - frye out
[2024-07-15] MEDS: STERILE WATER FOR INJECTION 10 ML IV ×2 (10:26→19:46)
[2024-07-15] MEDS: MAXIPIME 1000 MG IV ×2 (10:26→19:46)
[2024-07-15] MEDS: ATIVAN 3 MG PO ×3 (10:26→21:42)
[2024-07-15] MEDS: ASPIR LOW (ENTERIC COATED) 81 MG PO ×2 (10:26→19:45)
[2024-07-15] MEDS: SINGULAIR 10 MG PO (10:27)
[2024-07-15] MEDS: PROTONIX 40 MG PO (10:27)
[2024-07-15] MEDS: TAMBOCOR 100 MG PO ×2 (10:27→21:42)
[2024-07-15] MEDS: CALAN EXTENDED RELEASE PO (10:27)
[2024-07-15] MEDS: ZYLOPRIM 100 MG PO (10:27)
[2024-07-15] MEDS: ALDACTONE PO (10:34)
[2024-07-15] MEDS: LASIX PO (10:34)
[2024-07-15 12:57] LABS: Urine Albumin 2+ (Neg - Trace); Urine Bilirubin Negative (Negative); Urine Character Clear (Clear); Urine Color Yellow; Urine Glucose Negative (Negative); Urine Ketone Negative (Negative); Urine Leukocyte 2+ (Negative); Urine Nitrite Negative (Negative); Urine Occult Blood Negative (Negative); Urine Specific Gravity 1.015 (<1.030); Urine Urobilinogen Negative (Neg - 1+)
[2024-07-15 13:03] LABS: Urine Squamous Cell 16-20 /LPF (Few)
[2024-07-15 13:04] LABS: Urine Bacteria Few (Negative); Urine White Cell 16-20 /HPF (0-5)
[2024-07-15] MEDS: ProAmatine 2.5 MG PO ×2 (16:23→17:55)
[2024-07-15] MEDS: MORPHINE SULFATE 2 MG IV ×2 (16:26→22:49)
[2024-07-15 16:58] LABS: NT-proBNP 296 pg/ml
--- NOTE | 2024-07-15 17:21 | PTCARENOTE ---
Patient AOx3. Patient has flat affect. A-paced with first degree on monitor. BP soft and patient asymptomatic. Dr. Segovia aware and ordered midodrine. 2L NC. Frequent encouragement of IS. Patient peeing appropriately post frye removal. Patient
tolerating diet. Patient c/o of R lower back pain. PRN morphine given per MAY. Assist x1 when OOB. Call ayala within reach, bed in lowest position, and bed of wheels locked.
[2024-07-15] MEDS: LAC HYDRIN, AM LACTIN LOTION 1 APPLIC TOPICAL (19:45)
[2024-07-15] MEDS: CRESTOR 20 MG PO (19:45)
[2024-07-15] MEDS: SENOKOT-S 2 TABLET PO (19:45)
--- NOTE | 2024-07-15 20:39 | PTCARENOTE ---
assumed care of patient. pt is AAOx3, flat affect. able to make needs known. VSS. oxygen turned down to 1L, 95% RA. a-paced on the monitor. c/o some right abdomen tenderness. using BSC without issues. care ongoing.
[2024-07-16] VITALS (18 sets, daily range): BP systolic 88–126; BP diastolic 56–85; PULSE 62–67; O2SAT 95; BMI 39.7
[2024-07-16 05:08] LABS: Hematocrit 34.8 % (37.0-47.0); Hemoglobin 11.6 g/dL (12.0-16.0); Mean Corp Hgb Conc. 33.3 g/dL (33.0-37.0); Mean Corpuscular Hgb 29.8 pg (27.0-31.0); Mean Corpuscular Volume 89.5 fL (81.0-99.0); Mean Platelet Volume 10.2 fL (7.4-10.4); Platelet Count 257 10^3/uL (130-400); Red Blood Cell Count 3.89 10^6/uL (4.20-5.40); Red Cell Dist. Width 13.8 % (11.5-14.5); White Blood Cell Count 9.8 10^3/uL (4.8-10.8)
[2024-07-16 05:40] LABS: Blood Urea Nitrogen 20 mg/dl (7-17); Calcium 8.9 mg/dl (8.4-10.2); Carbon Dioxide 25 mmol/L (22-30); Chloride 107 mmol/L (98-107); Estimated Creatinine Clearance 93 ml/min; Glucose 84 mg/dl (70-99); Magnesium 1.9 mg/dl (1.6-2.3); Phosphorus 3.8 mg/dl (2.5-4.5); Potassium 4.8 mmol/L (3.5-5.1); Sodium 138 mmol/L (135-145); eGFR > 60.00
--- NOTE | 2024-07-16 06:31 | W.PN.HOSP.TC ---
Today's Communication/Plan
-
see a/p
Assessment / Plan
Assessment / Plan
Physical Exam
General: Obese, no acute distress, appears comfortable at this time.
HEENT: Anicteric and Moist mucous membranes
Respiratory: Clear; No Wheezes, Rales or Rhonchi
Cardiac: S1/S2; No Bradycardia or Tachycardia
GI: Soft, Non Tender, Non Distended and bowel sounds present
Genito-urinary: Right Costovertebral angle tenderness
Musculoskeletal: No Edema
Skin: Warm
Neuro: AOx3 conversant coherent
Psych: Calm and Intact Judgment/Insight
CT AP: 4.4 mm obstructing stone mid right ureter w associated mild right-sided hydroureteronephrosis. Perinephric edema concerning for superimposed infection
HCT: No acute intracranial abnormality noted.
ASSESSMENT & PLAN
69F Morbid Obesity Kidney Stones pAfib Fleicanide HFpEF LILIA CAD here for rt kidney stone obstruction w associate pyelonephritis sepsis.
Complicated UTI
4.4 mm obstructing mid Rt ureteral stone complicated with hydronephrosis and pyelonephritis
HX Nephrolithiasis complicated with obstructive uropathy and gram-negative sepsis.
- Urology consult appreciated s/p rt ureteral stent 07/13/24
- Phillips discontinued, passed trial of void
- blood cx's NGTD urine cultures prelim pos E. coli follow up sensitivities
- Cont Empiric Cefipime
- Pain control
Low Pressures/Borderline Hypotensive
-Low dose midodrine started w/ holding parameters, cont
Chronic HFpEF with LVEF 55-60 on 10/13/23 TTE
- I/Os and daily Weight
- cont home Lasix and Spironolactone w/ holding parameters
COPD HX
LILIA on CPAP HS
- cont home Breo elliptica, montelukast, albuterol HFA.
- cont CPAP HS
CAD with HX OR.
Benign Hypertension
- c/w ASA, verapamil, Statin
Paroxysmal AF s/p ablation x2
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
Obesity due to excessive calories.
- affect all aspects of life
Anxiety
- cont home Ativan, monitor for sedation
- cont home ropinirole
PT appreciated home health
DVT prophylaxis: SCD
Full code
I spent a total of 45 minutes with the patient or on the floor. More than 50% of this time involved counseling and coordination of care.
Anticipated Discharge: 24 - 48 hours
Subjective/Interval History
-
Date of Service: July 16, 2024
No acute distress resting comfortably in bed. Reports improvement in right sided flank pain/soreness. Denies new acute issues at this time.
Objective Data
-
Labs:
Laboratory Results
07/16/24
04:03
WBC 9.8
Hgb 11.6 L
Hct 34.8 L
Plt Count 257
Sodium 138
Potassium 4.8
Chloride 107
Carbon Dioxide 25
BUN 20 H
Creatinine 0.7
Glucose 84
Calcium 8.9
Vital Signs:
Vital Signs
Temp Pulse Resp BP Pulse Ox
98.7 F 63 26 106/69 93
07/16/24 03:00 07/16/24 06:00 07/16/24 06:00 07/16/24 06:00 07/16/24 06:00
I&O
07/14/24 07/15/24 07/16/24
06:59 06:59 06:59
Intake Total 800 / 800 960 / 960 960 / 960
Output Total 850 / 850 1050 / 1050 675 / 675
Balance -50 / -50 -90 / -90 285 / 285
[2024-07-16] MEDS: MORPHINE SULFATE 2 MG IV (09:41)
[2024-07-16] MEDS: SINGULAIR 10 MG PO (09:43)
[2024-07-16] MEDS: ZYLOPRIM 100 MG PO (09:43)
[2024-07-16] MEDS: TAMBOCOR 100 MG PO ×2 (09:43→21:25)
[2024-07-16] MEDS: ASPIR LOW (ENTERIC COATED) 81 MG PO ×2 (09:44→21:25)
[2024-07-16] MEDS: ProAmatine 2.5 MG PO ×3 (09:44→17:25)
[2024-07-16] MEDS: CALAN EXTENDED RELEASE 120 MG PO (09:44)
[2024-07-16] MEDS: LASIX PO (09:45)
[2024-07-16] MEDS: ALDACTONE PO (09:45)
[2024-07-16] MEDS: PROTONIX 40 MG PO (09:45)
[2024-07-16] MEDS: MAXIPIME 1000 MG IV ×2 (09:46→21:24)
[2024-07-16] MEDS: STERILE WATER FOR INJECTION 10 ML IV ×2 (09:46→21:24)
[2024-07-16] MEDS: ATIVAN PO (09:47)
[2024-07-16] MEDS: FLUSH (NSS) 3 FLUSH IV (09:47)
[2024-07-16] MEDS: MIRALAX 17 GRAMS PO (10:01)
[2024-07-16] MEDS: ATIVAN 1 MG PO ×2 (12:20→17:25)
--- NOTE | 2024-07-16 19:11 | PTCARENOTE ---
OOB few times today. Required 1 dose IV Morphine this am for right back pain/ neck pain 10/06 - post assessment 06/06. Remains on IV antibx. Voiding well in bathroom/bsc . Fall risk - alarms on all day.
[2024-07-16] MEDS: CRESTOR 20 MG PO (21:24)
[2024-07-16] MEDS: ATIVAN 2 MG PO (21:25)
[2024-07-16] MEDS: SENOKOT-S 2 TABLET PO (21:26)
[2024-07-16] MEDS: LAC HYDRIN, AM LACTIN LOTION 1 APPLIC TOPICAL (21:30)
[2024-07-17] VITALS (17 sets, daily range): BP systolic 88–121; BP diastolic 28–73; PULSE 62–66; BMI 39.6; BMI 41.1
[2024-07-17] MEDS: MORPHINE SULFATE 2 MG IV ×4 (00:23→21:54)
[2024-07-17 04:47] LABS: Hematocrit 38.1 % (37.0-47.0); Hemoglobin 13.1 g/dL (12.0-16.0); Mean Corp Hgb Conc. 34.4 g/dL (33.0-37.0); Mean Corpuscular Hgb 30.1 pg (27.0-31.0); Mean Corpuscular Volume 87.6 fL (81.0-99.0); Mean Platelet Volume 9.4 fL (7.4-10.4); Platelet Count 265 10^3/uL (130-400); Red Blood Cell Count 4.35 10^6/uL (4.20-5.40); Red Cell Dist. Width 13.5 % (11.5-14.5); White Blood Cell Count 8.3 10^3/uL (4.8-10.8)
[2024-07-17 05:13] LABS: ALT (SGPT) 45 U/L (0-35); AST (SGOT) 24 U/L (14-36); Albumin 3.3 g/dl (3.5-5.0); Alkaline Phosphatase 88 U/L (38-126); Blood Urea Nitrogen 18 mg/dl (7-17); Calcium 9.5 mg/dl (8.4-10.2); Carbon Dioxide 26 mmol/L (22-30); Chloride 105 mmol/L (98-107); Direct Bilirubin 0.2 mg/dl (0.0-0.4); Estimated Creatinine Clearance 93 ml/min; Glucose 93 mg/dl (70-99); Magnesium 1.9 mg/dl (1.6-2.3); Phosphorus 4.2 mg/dl (2.5-4.5); Potassium 4.8 mmol/L (3.5-5.1); Sodium 139 mmol/L (135-145); Total Bilirubin 0.4 mg/dl (0.2-1.3); Total Protein 5.6 g/dl (6.3-8.2); eGFR > 60.00
--- NOTE | 2024-07-17 07:53 | W.PN.HOSP.TC ---
Today's Communication/Plan
-
Medically stable for downgrade to Tele
IV abx de-escalated to Augmentin planned for total 10 days abx
wean O2 supplementation as tolerated
pain control
out of bed to chair
Miralax daily added, cont bowel regimen
Assessment / Plan
Assessment / Plan
Physical Exam
General: Obese, no acute distress, appears comfortable at this time.
HEENT: Anicteric and Moist mucous membranes
Respiratory: Clear; No Wheezes, Rales or Rhonchi
Cardiac: S1/S2; No Bradycardia or Tachycardia
GI: Soft, Non Tender, Non Distended and bowel sounds present
Genito-urinary: Right Costovertebral angle tenderness
Musculoskeletal: No Edema
Skin: Warm
Neuro: AOx3 conversant coherent
Psych: Calm and Intact Judgment/Insight
CT AP: 4.4 mm obstructing stone mid right ureter w associated mild right-sided hydroureteronephrosis. Perinephric edema concerning for superimposed infection
HCT: No acute intracranial abnormality noted.
ASSESSMENT & PLAN
69F Morbid Obesity Kidney Stones pAfib Fleicanide HFpEF LILIA CAD here for rt kidney stone obstruction w associate pyelonephritis sepsis.
Complicated UTI
4.4 mm obstructing mid Rt ureteral stone complicated with hydronephrosis and pyelonephritis
HX Nephrolithiasis complicated with obstructive uropathy and gram-negative sepsis.
- Urology consult appreciated s/p rt ureteral stent 07/13/24
- Phillips discontinued, passed trial of void
- blood cx's NGTD, urine cultures pos E. coli sensitive to Augmentin
- Empiric Cefipime switched to Augmentin planned for total 10 days abx as per Urology (07/22/24Thu last day for abx)
- probiotic
- Pain control
Low Pressures/Borderline Hypotensive
-Low dose midodrine started w/ holding parameters, cont
Chronic HFpEF with LVEF 55-60 on 7/16/24 TTE
CAD with HX [place].
Hypertension
- I/Os and daily Weight
- cont home Lasix and Spironolactone w/ holding parameters
-Spironolactone reduced to 12.5 mg daily given intermittent low pressures, has not received a dose yet due to holding parameters.
- c/w ASA, verapamil, Statin
COPD HX
LILIA on CPAP HS
- cont home Breo elliptica, montelukast, albuterol HFA.
- cont CPAP HS
Paroxysmal AF s/p ablation x2
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
Obesity due to excessive calories.
- affect all aspects of life
Anxiety
- cont home Ativan, monitor for sedation
- cont home ropinirole
Constipation
cont home Senokot-S HS
Miralax daily added
bisacodyl suppository prn
PT appreciated home health
DVT prophylaxis: SCD
Full code
Medically stable for downgrade to Tele
I spent a total of 45 minutes with the patient or on the floor. More than 50% of this time involved counseling and coordination of care.
Anticipated Discharge: 24 - 48 hours
Subjective/Interval History
-
Date of Service: July 17, 2024
Seen and examined at bedside in no acute distress resting comfortably in bed. Right flank pain persists but improving. Reports constipation.
Objective Data
-
Labs:
Laboratory Results
07/17/24
04:13
WBC 8.3
Hgb 13.1
Hct 38.1
Plt Count 265
Sodium 139
Potassium 4.8
Chloride 105
Carbon Dioxide 26
BUN 18 H
Creatinine 0.7
Glucose 93
Calcium 9.5
Total Bilirubin 0.4
AST 24
ALT 45 H
Alkaline Phosphatase 88
Vital Signs:
Vital Signs
Temp Pulse Resp BP Pulse Ox
98.5 F 67 20 112/67 95
07/17/24 03:00 07/17/24 02:00 07/17/24 02:00 07/17/24 00:00 07/16/24 23:37
I&O
07/16/24 07/17/24 07/18/24
06:59 06:59 06:59
Intake Total 960 / 960 1500 / 1500
Output Total 675 / 675 3000 / 3000
Balance 285 / 285 -1500 / -1500
[2024-07-17] MEDS: ATIVAN 1 MG PO ×3 (09:08→17:01)
[2024-07-17] MEDS: ASPIR LOW (ENTERIC COATED) 81 MG PO ×2 (09:08→19:58)
[2024-07-17] MEDS: CALAN EXTENDED RELEASE 120 MG PO (09:09)
[2024-07-17] MEDS: LASIX 40 MG PO (09:09)
[2024-07-17] MEDS: PROTONIX 40 MG PO (09:10)
[2024-07-17] MEDS: SINGULAIR 10 MG PO (09:10)
[2024-07-17] MEDS: ProAmatine 2.5 MG PO ×3 (09:10→17:01)
[2024-07-17] MEDS: TAMBOCOR 100 MG PO ×2 (09:11→19:58)
[2024-07-17] MEDS: VISBIOME 1 CAP PO (09:11)
[2024-07-17] MEDS: AUGMENTIN 875 MG/125 MG 1 TABLET PO ×2 (09:11→19:58)
[2024-07-17] MEDS: ZYLOPRIM 100 MG PO (09:11)
[2024-07-17] MEDS: MAXIPIME IV (10:39)
[2024-07-17] MEDS: STERILE WATER FOR INJECTION IV (10:40)
[2024-07-17] MEDS: MIRALAX 17 GRAMS PO (12:30)
--- NOTE | 2024-07-17 13:14 | W.PN.URO.CBU ---
Today's Communication / Plan
-
Continue augmentin for E coli UTI - recommend total 10 day antibiotic course
Outpt f/u with dr Weaver to schedule stone procedure
Assessment / Plan
-
obstructing right ureteral stone and UTI
s/p right ureteral stent
pt stable
continue medical support
Continue augmentin for E coli UTI - recommend total 10 day antibiotic course
Outpt f/u with dr Weaver to schedule stone procedure
Diagnosis
-
Date of Service: July 17, 2024
-
Patient Diagnosis:
obstructing right ureteral stone/UTI
Post Op Day:
right ureteral stent 07/13
Subjective
-
feeling well today
minimal stent bother
Objective
-
Vital Signs
Temp Pulse Resp BP Pulse Ox
97.5 F 60 20 120/71 95
07/17/24 11:20 07/17/24 12:30 07/17/24 02:00 07/17/24 12:30 07/16/24 23:37
Intake and Output
07/16/24 07/17/24 07/18/24
06:59 06:59 06:59
Intake Total 960 / 960 1500 / 1500 240 / 240
Output Total 675 / 5 3000 / 3000 700 / 700
Balance 285 / 285 -1500 / -1500 -460 / -460
Intake:
Oral fluids 960 / 960 1500 / 1500 240 / 240
Output:
Urine, Voided 675 / 675 3000 / 3000 700 / 700
Other:
Number of approximated MODERATE 1
amounts of urine
Laboratory Results
07/17/24 04:13
07/17/24 04:13
Physical Exam
-
General - well developed, well nourished, no acute distress
Chest - clear resp
--- NOTE | 2024-07-17 16:38 | PTCARENOTE ---
Patient out of bed to commode several times today, assistance of one. Patient has complained of right sided back pain 10/06 requiring Morphine 2mg IV as per doctors orders. Lasix administered this morning , urine output light yellow. Good appetite.
at bedside.
--- NOTE | 2024-07-17 20:54 | PTCARENOTE ---
Received pt from willprnicci RN. Pt aaox3 able to make needs known. No changes from previous nurse's assessment. Report called to [facility] RN Rachel. Pt transferred to [id number] via stretcher.
--- NOTE | 2024-07-17 21:00 | PTCARENOTE ---
Received patient from IMU at approx 2044. Stretcher brought into the room near bed for patient to get into bed. Oriented to room. Call ayala in reach.
[2024-07-17] MEDS: CRESTOR 20 MG PO (21:54)
[2024-07-17] MEDS: SENOKOT-S 2 TABLET PO (21:54)
[2024-07-17] MEDS: ATIVAN PO (23:24)
[2024-07-18] MEDS: LAC HYDRIN, AM LACTIN LOTION 1 APPLIC TOPICAL (00:52)
[2024-07-18 03:10] VITALS: BP 99/57
[2024-07-18 06:00] VITALS: BMI 40.9
[2024-07-18 07:00] VITALS: BP 111/68
[2024-07-18 08:35] LABS: Hematocrit 41.2 % (37.0-47.0); Hemoglobin 14.1 g/dL (12.0-16.0); Mean Corp Hgb Conc. 34.2 g/dL (33.0-37.0); Mean Corpuscular Hgb 30.3 pg (27.0-31.0); Mean Corpuscular Volume 88.4 fL (81.0-99.0); Mean Platelet Volume 9.4 fL (7.4-10.4); Platelet Count 296 10^3/uL (130-400); Red Blood Cell Count 4.66 10^6/uL (4.20-5.40); Red Cell Dist. Width 13.5 % (11.5-14.5); White Blood Cell Count 9.6 10^3/uL (4.8-10.8)
--- NOTE | 2024-07-18 08:45 | W.PN.HOSP.TC ---
Today's Communication/Plan
-
Discharge today
Assessment / Plan
Assessment / Plan
Physical Exam
General: Obese, no acute distress, appears comfortable at this time.
HEENT: Anicteric and Moist mucous membranes
Respiratory: Clear; No Wheezes, Rales or Rhonchi
Cardiac: S1/S2; No Bradycardia or Tachycardia
GI: Soft, Non Tender, Non Distended and bowel sounds present
Genito-urinary: Right Costovertebral angle tenderness - RESOLVED
Musculoskeletal: No Edema
Skin: Warm
Neuro: AOx3 conversant coherent
Psych: Calm and Intact Judgment/Insight
CT AP: 4.4 mm obstructing stone mid right ureter w associated mild right-sided hydroureteronephrosis. Perinephric edema concerning for superimposed infection
HCT: No acute intracranial abnormality noted.
ASSESSMENT & PLAN
69F Morbid Obesity Kidney Stones pAfib Fleicanide HFpEF LILIA CAD here for rt kidney stone obstruction w associate pyelonephritis sepsis.
Complicated UTI
4.4 mm obstructing mid Rt ureteral stone complicated with hydronephrosis and pyelonephritis
HX Nephrolithiasis complicated with obstructive uropathy and gram-negative sepsis.
- Urology consult appreciated s/p rt ureteral stent 07/13/24
- Phillips discontinued, passed trial of void
- blood cx's NGTD, urine cultures pos E. coli sensitive to Augmentin
- Empiric Cefipime switched to Augmentin planned for total 10 days abx as per Urology (07/22/24Thu last day for abx)
- probiotic
- Pain control
Low Pressures/Borderline Hypotensive
-Low dose midodrine started w/ holding parameters, cont
Chronic HFpEF with LVEF 55-60 on 10/13/23 TTE
CAD with HX [place].
Hypertension
- I/Os and daily Weight
- cont home Lasix and Spironolactone w/ holding parameters
-Spironolactone previously reduced to 12.5 mg daily given intermittent low pressures, has not received a dose yet due to holding parameters.
- c/w ASA, verapamil, Statin
COPD HX
LILIA on CPAP HS
- cont home Breo elliptica, montelukast, albuterol HFA.
- cont CPAP HS
Paroxysmal AF s/p ablation x2
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
Obesity due to excessive calories.
- affect all aspects of life
Anxiety
- cont home Ativan, monitor for sedation
- cont home ropinirole
Constipation
continue home Senokot-S HS
Miralax daily added
bisacodyl suppository prn
PT appreciated home health
DVT Prophylaxis: SCDs
Code Status: Full code
More than 30 minutes spent in discharge including
Final examination of the patient
Summarizing hospital stay
Instructions for continuing care to all relevant caregivers
Preparation of discharge records, prescriptions, and referral forms
Total time spent (in minutes): 38
Anticipated Discharge: Today
Subjective/Interval History
-
Date of Service: July 18, 2024
Patient was seen and examined. She denied any fever, chest pain, abdominal pain, nausea, vomiting, urinary symptoms or any other complaints.
Objective Data
-
Labs:
Laboratory Results
07/18/24
08:16
WBC 9.6
Hgb 14.1
Hct 41.2
Plt Count 296
Sodium Pending
Potassium Pending
Chloride Pending
Carbon Dioxide Pending
BUN Pending
Creatinine Pending
Glucose Pending
Calcium Pending
Vital Signs:
Vital Signs
Temp Pulse Resp BP Pulse Ox
98.1 F 70 16 111/68 94
07/18/24 07:00 07/18/24 07:00 07/18/24 07:00 07/18/24 07:00 07/18/24 07:00
I&O
07/17/24 07/18/24 07/19/24
06:59 06:59 06:59
Intake Total 1500 / 1500 720 / 720
Output Total 3000 / 3000 1250 / 1250
Balance -1500 / -1500 -530 / -530
[2024-07-18 09:12] LABS: Blood Urea Nitrogen 21 mg/dl (7-17); Calcium 9.2 mg/dl (8.4-10.2); Carbon Dioxide 30 mmol/L (22-30); Chloride 102 mmol/L (98-107); Estimated Creatinine Clearance 88 ml/min; Glucose 104 mg/dl (70-99); Magnesium 1.9 mg/dl (1.6-2.3); Phosphorus 3.5 mg/dl (2.5-4.5); Potassium 4.5 mmol/L (3.5-5.1); Sodium 141 mmol/L (135-145); eGFR > 60.00
[2024-07-18 09:51] VITALS: BP 154/76; PULSE 68; O2SAT 94
[2024-07-18] MEDS: AUGMENTIN 875 MG/125 MG 1 TABLET PO (10:18)
[2024-07-18] MEDS: TAMBOCOR 100 MG PO (10:18)
[2024-07-18] MEDS: CALAN EXTENDED RELEASE 120 MG PO (10:19)
[2024-07-18] MEDS: ASPIR LOW (ENTERIC COATED) 81 MG PO (10:20)
[2024-07-18] MEDS: PROTONIX 40 MG PO (10:21)
[2024-07-18] MEDS: LASIX 40 MG PO (10:21)
[2024-07-18] MEDS: ProAmatine 2.5 MG PO ×3 (10:21→17:53)
[2024-07-18] MEDS: VISBIOME 1 CAP PO (10:22)
[2024-07-18] MEDS: ZYLOPRIM 100 MG PO (10:23)
[2024-07-18] MEDS: MIRALAX 17 GRAMS PO (10:23)
[2024-07-18] MEDS: SINGULAIR 10 MG PO (10:23)
[2024-07-18] MEDS: ATIVAN PO ×2 (10:24→13:23)
[2024-07-18] MEDS: TYLENOL 650 MG PO (10:40)
[2024-07-18 11:00] VITALS: BP 125/70
--- NOTE | 2024-07-18 14:51 | CM ---
Patient will d/c today. Initial assessment completed. Admitted for fever and chills. Cysto/right ureteral stent performed this admission.
Patient resides w/ spouse in single story rancher style home- 4 steps to enter. Patient is independent w/ ambulating, no device required. Independent w/ ADLs. Patient stated she has a RW, rollator, walking stick, 2 canes, all of which she currently
does not use and purchased for her and/or spouse to use if ever needed. Patient has shower chair and grab bar in the bathroom in addition. Patient denies SNF hx, OP therapy in the past. [facility] in the past, patient has [facility] through the state twice a
week for 2 hours.
Address, point of contact and insurance verified
PCP: Mulu Newby
Pharmacy: [facility]
Therapy assessed patient and is recommending home PT. Patient agreeable to [facility], referral placed in [facility].
Patient agreeable to d/c today, spouse will transport. IMM verbally reviewed, patient given copy, copy placed on chart
Plan: Home w/ [facility]
[2024-07-18 15:00] VITALS: BP 99/68
--- NOTE | 2024-07-18 15:32 | VNURNOTE ---
Home Health Liaison met with patient at bedside to discuss [facility] nurse/therapy, visits, schedule and homebound status. Patient is agreeable and understands that visits at home will be 2-3 x per week to assess and teach medical management.
[facility] brochure provided with contact information. [facility] is aware that [facility] them for start of care in 1-2 days after discharge from . [facility] referral completed in [facility].
[2024-07-18] MEDS: ATIVAN 1 MG PO (17:48)
== END 2024-07-18 19:06 | disposition home health service (06) | DRG 854 ==
LOC: 4 WEST ACU 21:54
PROVIDERS: Emergency Medicine; Internal Medicine; ADMITTING PHYSICIAN Internal Medicine; ATTENDING PHYSICIAN Hospitalist; CONSULT PHYSICIAN Specialist; EMERGENCY PHYSICIAN Emergency Medicine; FAMILY PHYSICIAN Family Medicine
PROC: 5A09357 Assistance with Respiratory Ventilation, Less than 24 Consecutive Hours, Continuous Positive Airway Pressure (ICD-10-PCS; 2024-07-14)
PROC: 0T768DZ Dilation of Right Ureter with Intraluminal Device, Via Natural or Artificial Opening Endoscopic (ICD-10-PCS; 2024-07-14)
DX: A41.9 Sepsis, unspecified organism (principal); I50.32 Chronic diastolic (congestive) heart failure; N13.6 Pyonephrosis; N20.2 Calculus of kidney with calculus of ureter; Z68.41 Body mass index [BMI] 40.0-44.9, adult; E66.01 Morbid (severe) obesity due to excess calories; I48.0 Paroxysmal atrial fibrillation; I11.0 Hypertensive heart disease with heart failure; G47.33 Obstructive sleep apnea (adult) (pediatric); I25.10 Atherosclerotic heart disease of native coronary artery without angina pectoris; I25.2 Old myocardial infarction; J44.9 Chronic obstructive pulmonary disease, unspecified; Z11.52 Encounter for screening for COVID-19; Z87.891 Personal history of nicotine dependence; Z79.82 Long term (current) use of aspirin; Z79.899 Other long term (current) drug therapy; Z87.442 Personal history of urinary calculi; E78.00 Pure hypercholesterolemia, unspecified; E83.119 Hemochromatosis, unspecified; F41.9 Anxiety disorder, unspecified; K21.9 Gastro-esophageal reflux disease without esophagitis; W19.XXXA Unspecified fall, initial encounter; Z87.440 Personal history of urinary (tract) infections; Z95.0 Presence of cardiac pacemaker; Z96.652 Presence of left artificial knee joint
CPT/HCPCS: 51701; 70450; 71045; 71046; 74018; 74177; 76000; 80048; 80053; 81003; 81015; 82248; 83605; 83690; 83735; 83880; 84100; 85025; 85027; 87040; 87077; 87086; 87186; 87502; 87811; 93005; 94660; 96361; 96374; 97116; 97163; 97530; 99291; C1758; C1894; C2617; Q9967

== ENCOUNTER → 2024-07-25 12:32 | Outpatient (REF) | payer MEDICARE, OTHER, SELFPAY | LOC: HWRAD 12:32 | PROVIDERS: ATTENDING PHYSICIAN Family Medicine | DX: R06.02 Shortness of breath (principal) | CPT/HCPCS: 71046 ==

== ENCOUNTER → 2024-07-26 12:02 | Outpatient (REF) | payer MEDICARE, OTHER, SELFPAY | LOC: CLAB 12:02 | PROVIDERS: ATTENDING PHYSICIAN Specialist | DX: N20.0 Calculus of kidney (principal); N39.0 Urinary tract infection, site not specified | CPT/HCPCS: 87086 ==

== ENCOUNTER → 2024-07-27 12:17 | Outpatient (REF) | payer MEDICARE, OTHER, SELFPAY | LOC: HWRAD 12:17 | PROVIDERS: ATTENDING PHYSICIAN Family Medicine; FAMILY PHYSICIAN Family Medicine; OTHER PHYSICIAN Internal Medicine Critical Care Medicine; REFERRING PHYSICIAN Otolaryngology Facial Plastic Surgery | DX: E04.1 Nontoxic single thyroid nodule (principal) | CPT/HCPCS: 76536 ==

== ENCOUNTER 2024-08-02 06:13 | Day surgery (SDC) | payer MEDICARE, OTHER, SELFPAY ==
[2024-08-02] VITALS (10 sets, daily range): BP systolic 95–147; BP diastolic 49–82; BMI 38.7
[2024-08-02] MEDS: NORMOSOL-R/PLASMALYTE-A 1000 IV (11:09)
[2024-08-02 12:37] LABS: Urine Albumin 2+ (Neg - Trace); Urine Bilirubin Negative (Negative); Urine Character Clear (Clear); Urine Color Yellow; Urine Glucose Negative (Negative); Urine Ketone Negative (Negative); Urine Leukocyte 3+ (Negative); Urine Nitrite Positive (Negative); Urine Occult Blood 2+ (Negative); Urine Urobilinogen Negative (Neg - 1+)
[2024-08-02 12:58] LABS: Urine Mucus Few
[2024-08-02 12:59] LABS: Urine Bacteria Moderate (Negative); Urine White Cell 70-80 /HPF (0-5)
[2024-08-02] MEDS: SUBLIMAZE 25 MCG IV ×2 (14:12→14:25)
[2024-08-02] MEDS: Pyridium 200 MG PO (14:58)
[2024-08-02] MEDS: TYLENOL 650 MG PO (15:34)
== END 2024-08-02 15:54 | disposition home or self-care (01) ==
LOC: SDS 06:13
PROVIDERS: ATTENDING PHYSICIAN Specialist
DX: N20.1 Calculus of ureter (principal); A41.9 Sepsis, unspecified organism
CPT/HCPCS: 52352; 52332; 74018; 76000; 81003; 81015; 82365; 87086; 87088; C2617; J1580

== ENCOUNTER → 2024-08-12 09:04 | Outpatient (REF) | payer MEDICARE, OTHER, SELFPAY ==
[2024-08-12 11:45] LABS: Calcium 9.9 mg/dl (8.4-10.2); Uric Acid 6.7 mg/dl (2.5-6.2)
[2024-08-13 12:05] LABS: Intact PTH 65.2 pg/ml (13.6-85.8)
== END ==
LOC: HWLAB 09:04
PROVIDERS: ATTENDING PHYSICIAN Specialist; FAMILY PHYSICIAN Family Medicine
DX: N20.0 Calculus of kidney (principal)
CPT/HCPCS: 36415; 83970; 84550

== ENCOUNTER → 2024-08-16 13:15 | Outpatient (REF) | payer MEDICARE, OTHER, SELFPAY | LOC: RAD 13:15 | PROVIDERS: ATTENDING PHYSICIAN Family Medicine; FAMILY PHYSICIAN Otolaryngology Facial Plastic Surgery | DX: R22.1 Localized swelling, mass and lump, neck (principal) | CPT/HCPCS: 70491; Q9967 ==

== ENCOUNTER → 2024-08-29 12:37 | Outpatient (REF) | payer MEDICARE, OTHER, SELFPAY | LOC: HWRAD 12:37 | PROVIDERS: ATTENDING PHYSICIAN Family Medicine; REFERRING PHYSICIAN Otolaryngology Facial Plastic Surgery | DX: M85.80 Other specified disorders of bone density and structure, unspecified site (principal); M85.89 Other specified disorders of bone density and structure, multiple sites | CPT/HCPCS: 77080 ==

== ENCOUNTER → 2024-10-24 10:15 | Outpatient (REF) | payer MEDICARE, OTHER, SELFPAY ==
[2024-10-24 12:58] LABS: Urine Character Clear (Clear)
[2024-10-24 12:59] LABS: ALT (SGPT) 28 U/L (0-35); AST (SGOT) 23 U/L (14-36); Albumin 4.8 g/dl (3.5-5.0); Alkaline Phosphatase 96 U/L (38-126); Blood Urea Nitrogen 25 mg/dl (7-17); Calcium 10.1 mg/dl (8.4-10.2); Carbon Dioxide 26 mmol/L (22-30); Chloride 103 mmol/L (98-107); Glucose 106 mg/dl (70-99); Potassium 4.2 mmol/L (3.5-5.1); Sodium 138 mmol/L (135-145); Total Protein 7.5 g/dl (6.3-8.2); eGFR > 60.00
[2024-10-24 13:11] LABS: Urine Red Blood Cell 0-2 /HPF (0-2); Urine Squamous Cell 0-2 /LPF (Few)
== END ==
LOC: HWLAB 10:15
PROVIDERS: ATTENDING PHYSICIAN Specialist; FAMILY PHYSICIAN Family Medicine; REFERRING PHYSICIAN Otolaryngology Facial Plastic Surgery
DX: H90.0 Conductive hearing loss, bilateral (principal); N20.0 Calculus of kidney
CPT/HCPCS: 36415; 80053; 81003; 81015

== ENCOUNTER → 2024-11-09 09:57 | Outpatient (REF) | payer MEDICARE, OTHER, SELFPAY | LOC: WDC 09:57 | PROVIDERS: ATTENDING PHYSICIAN Nurse Practitioner Family; FAMILY PHYSICIAN Family Medicine | DX: N64.4 Mastodynia (principal) | CPT/HCPCS: 76642; 77062; 77066 ==

== ENCOUNTER → 2024-12-07 09:13 | Outpatient (REF) | payer MEDICARE, OTHER, SELFPAY | LOC: RST 09:13 | PROVIDERS: ATTENDING PHYSICIAN Otolaryngology Facial Plastic Surgery; FAMILY PHYSICIAN Family Medicine | DX: Z11.0 Encounter for screening for intestinal infectious diseases (principal); D11.0 Benign neoplasm of parotid gland | CPT/HCPCS: 70492; 74221; Q9967 ==

== ENCOUNTER → 2025-01-12 13:13 | Outpatient (REF) | payer MEDICARE, OTHER, SELFPAY | LOC: HWRAD 13:13 | PROVIDERS: ATTENDING PHYSICIAN Specialist; FAMILY PHYSICIAN Family Medicine | DX: N20.0 Calculus of kidney (principal) | CPT/HCPCS: 74018 ==